=== PATIENT | female | born 1970 | race Caucasian/White ===

== ENCOUNTER 2016-07-15 10:40 | Observation (INO) ==
[2016-07-15] MEDS ORDERED: MORPHINE 2 MG/1 ML SYRINGE IV STA (12:21)
[2016-07-15] MEDS ORDERED: NITROGLYCERIN SL 0.4 MG TABLET SL PRN (12:21)
[2016-07-15] MEDS ORDERED: NITROGLYCERIN 2% OINT 1 INCH/GM PACK TOP STA ×2 (12:21→16:43)
[2016-07-15] MEDS ORDERED: ENOXAPARIN 100 MG/ML SYRINGE SUBCUT STA (12:21)
[2016-07-15] MEDS ORDERED: ASPIRIN 325 MG TABLET PO STA (12:21)
[2016-07-15] MEDS ORDERED: ONDANSETRON 4 MG/2 ML VIAL IV STA (12:21)
--- NOTE | 2016-07-15 12:25 | EKG Report ---
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
[2016-07-15 12:40] LABS: Basophils % 0.9 % (0.0-0.8); Eosinophils # 0.2 10*3/uL (0.0-0.87); Eosinophils % 4.3 % (0.00-10.9); Hematocrit 39.9 VOL% (35.7-47.0); Hemoglobin 13.5 GM/DL (12.0-16.0); Immature Granulocytes % 0.2 %; Immature Granulocytes Absolute 0.01 #; Lymphocytes # 2.1 10*3/uL (1.4-4.0); Lymphocytes % 45.3 % (21.3-54.2); Mean Corpuscular HGB Conc 33.8 GM/DL (32-36); Mean Corpuscular Hemoglobin 28 PG (27-34); Mean Corpuscular Volume 83.3 FL (87-102); Mean Platelet Volume 9.7 FL (9.6-12.0); Monocytes # 0.2 10*3/uL (0.11-0.8); Monocytes % 5.2 % (1.7-12.7); Neutrophils # 2.1 10*3/uL (1.4-7.4); Neutrophils % 44.1 % (38.7-73.9); Platelet Count 267 10*3/uL (130-400); Red Blood Count 4.79 10*6/uL (3.8-5.5); Red Cell Distribution Width 12.3 % (9.3-17.3); White Blood Count 4.7 10*3/uL (4.5-13.71)
[2016-07-15] MEDS ORDERED: NITROGLYCERIN SL 0.4 MG TABLET SL ONE (12:45)
--- NOTE | 2016-07-15 12:47 | Emergency Department Note ---
Palmer Paulino Meredith, am scribing for, and in the presence of, Renny Barron MD 12: 23. Beatrice Paulino James D, MD, personally performed the services described in this documentation, ascribed by Kenyatta Chakraborty in my presence, and it is both accurate and complete . Arrival - Arrival Chief Complaint: Chest Pain Stated Complaint: chest pain ED Nursing Triage Note: Pt c/o Chest pain that radiates up into her left neck and jaw x 35 min with some SOB and nausea. Mode of Arrival: Ambulatory Limitations: No Limitations Source: Patient, Old Records Reviewed, RN Notes Reviewed Time Seen by Provider: 07/15/16 12:13 - History of Present Illness HPI Narrative: Pt is a 46 y/o white female reporting to the ED with c/o chest pressure that radiates into the left neck and jaw, onset at approximately 1100. She confirms some shortness of breath, nausea, and diaphoresis. Her chest pressure is exacerbated with exertion. 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 Pt has a history of HTN, anxiety, HLD, NIDDM, GERD, and DDD. She is a current everyday smoker. Onset (ago): hour(s) Quality: other (pressure) Allergies/Adverse Reactions: Allergies Allergy/AdvReac Type Severity Reaction Status Date / Time No Known Allergies Allergy Verified 04/24/15 14:41 Home Medications: Home Medications Medication Instructions Recorded Confirmed Type Aspirin [Ecotrin] 325 mg PO DAILY 12/26/14 07/15/16 History Rosuvastatin [Crestor] 20 mg PO BEDTIME 12/26/14 07/15/16 History metFORMIN [Glucophage] 1,000 mg PO BID W/MEALS 12/26/14 07/15/16 History Lisinopril/Hydrochlorothiazide 1 each PO DAILY 07/15/16 07/15/16 History [Lisinopril-Hctz 20-25 mg Tab] Review of System - Review of System 12 point system: reviewed and no additional remarkable complaints except as stated - Review of System Constitutional: Present: as per HPI, diaphoresis Respiratory: Present: as per HPI, other (SOB) Cardiovascular: Present: as per HPI, chest pain Gastrointestinal: Present: as per HPI, nausea Musculoskeletal: Present: as per HPI, neck pain (left-sided), other (left-sided jaw pain ) Medical,Surgical,& Family Hx - Medical History Cardio: History of: Hypertension Psychological: History of: Anxiety Disorders Endocrine: History of: Diabetes Mellitus (NIDDM), Dyslipidemia Gastrointestinal: History of: GERD Musculoskeletal: History of: Degenerative Disk Disease - Surgical History Cardiac Surgeries: Sugical HX of: Cardiac Catheterization (x4) HEENT Surgeries: Surgical HX of: Tonsilectomy & Adenoidectomy Abdominal Surgeries: Surgical HX of: Appendectomy, Cholecystectomy Reproductive Surgeries: Surgical HX of;: Hysterectomy - Social History Smoking Status: Current every day smoker Exam Physical Examination: GENERAL: This is a well-nourished, well-developed white female in no apparent distress. VITAL SIGNS: Temperature: 97.8, Pulse: 69, Respirations: 20, Blood pressure: 145 /94, O2 Saturation: 99 HEENT: Head is normocephalic and atraumatic. Pupils are equally round and reactive to light. Extraocular movement are intact. Oropharynx is benign with moist mucous membranes. NECK: Neck is soft and supple without tenderness. There are no masses. There is no lymphadenopathy. LUNGS: Lungs are clear to auscultation bilaterally. Chest rises symmetrically. There is no chest wall tenderness. CV: Heart is regular rate and rhythm without murmurs, rubs, or gallops. ABDOMEN: Abdomen is soft, non-tender to palpation. There are no abnormal masses palpated. There is no organomegaly. Bowel sounds are present and active. SKIN: Skin is warm and dry. No rash. EXTREMITIES: Patient has full range of motion without tenderness. There is no pedal edema. NEUROLOGIC: Awake, alert, and oriented x4. Cranial nerves II through XII are grossly intact. There are no motorsensory deficits. PSYCHIATRIC: Normal affect. Normal mood. Vital Signs: Vital Signs Temperature 97.4 F L 07/15/16 12:30 Pulse Rate 62 07/15/16 14:30 Respiratory Rate 20 07/15/16 14:30 Blood Pressure 123/83 07/15/16 14:30 O2 Sat by Pulse Oximetry 99 07/15/16 14:30 Course - Consultations Consultation #1: Discussed with Dr. Lr. Patient will be admitted to his service. Initial orders written for him. Time: 15:51 Results - Labs CBC & BMP: 07/15/16 12:30 07/15/16 12:30 Lab Results: I have reviewed the patients labs Labs: Laboratory Tests 07/15/16 07/15/16 12:30 12:30 INR 1.0 Troponin I < 0.015 - EKG EKG results: interpreted by ERMD - Impressions EKG: Normal sinus rhythm with a rate of 66, low voltage QRS, nonspecific ST-T wave changes. - Diagnostic Findings Procedure: Chest x-ray: image reviewed by me (No pleural effusions, no cardiomegaly, no infiltrates.) Disposition Clinical Impression: Chest pain, Unstable angina, Coronary artery disease Case discussed with: patient Condition: Stable Time of Disposition: 15:47
--- NOTE | 2016-07-15 12:48 | XRay Report ---
XR chest 2V Indication: Chest pain. Chest 2 views: Comparison 02/26/16. Superior retraction left hilum again noted. No discrete infiltrates are shown. Pleural spaces are clear. Heart size is normal. Impression: No acute cardio pulmonary disease. PROCEDURE INTERPRETED AT [facility] DEPARTMENT OF RADIOLOGY Final Report Signed by: Messi Valenzuela M.D.
[2016-07-15 12:52] LABS: PT Patient Result 10.2 SECS; Partial Thromboplastin Time 25.4 SECS (0-40)
[2016-07-15] MEDS ORDERED: ONDANSETRON 4 MG/2 ML VIAL ONE (13:06)
[2016-07-15] MEDS ORDERED: ENOXAPARIN 80 MG/0.8 ML SYRINGE SUBCUT ONE (13:06)
[2016-07-15] MEDS ORDERED: ASPIRIN 325 MG TABLET ONE (13:07)
[2016-07-15] MEDS ORDERED: MORPHINE 2 MG/1 ML SYRINGE ONE (13:07)
[2016-07-15 13:18] LABS: Albumin 3.9 G/DL (3.4-5.0); Bilirubin,Total 0.7 MG/DL (0.2-1.0); Calcium 9.1 MG/DL (8.5-10.1); Osmolality,Calculated 285.3 MOS/KG (273-304)
[2016-07-15] MEDS ORDERED: diphenhydrAMINE CAP 25 MG CAPSULE PO ONE (16:44)
[2016-07-15] MEDS ORDERED: MAGNESIUM SULF RIDER 2 GM in PREMIX 1 EACH IV PRN ×2 (16:44→18:25)
[2016-07-15] MEDS ORDERED: POTASSIUM CHLORIDE RIDER 10 MEQ in PREMIX 1 EACH IV PRN (16:44)
[2016-07-15] MEDS ORDERED: DIAZEPAM 5 MG TABLET PO ONE (16:44)
--- NOTE | 2016-07-15 16:48 | Cardiology History & Physical ---
<Bryanna Scruggs E - Last Filed: 07/15/16 16:49> Assessment and Plan - Time spent with patient Time spent with patient: Greater than 30 minutes (1) Family history of premature CAD Status: Chronic Current Visit: Yes (2) Diabetes Status: Chronic Assessment and plan: Poorly controlled diabetes. At this point, we will hold her metformin in anticipation of cardiac catheterization. Will cover with sliding scale insulin. Current Visit: Yes (3) Sleep disorder Status: Chronic Assessment and plan: Consults sleep medicine for possible sleep apnea. Current Visit: Yes (4) Chest pain Status: Acute Assessment and plan: History of coronary artery disease. Chest pain concerning for angina. Will discuss with mold stripper in await final recommendations. Will keep nothing by mouth after midnight for possible heart catheterization in the morning. History of GE reflux. We'll add PPI. Current Visit: Yes (5) Coronary artery disease Status: Chronic Assessment and plan: Known coronary artery disease. See HPI for additional information. Current Visit: Yes (6) Dyslipidemia Status: Chronic Assessment and plan: Continue lipid-lowering agent. Fasting lipid profile in the morning. Current Visit: No (7) Essential hypertension Status: Chronic Assessment and plan: Continue lisinopril. Heart rate will not allow for introduction of a beta federica. Current Visit: No (8) Nicotine addiction Status: Chronic Assessment and plan: Greater than 5 minutes was spent today discussing the merits of tobacco cessation. Current Visit: No History of Present Illness Chief complaint: chest pain, SOB and diaphoresis, known CAD History of present illness: Patient is being seen in the emergency department. Ms. Pierre is a 46 year old female followed by Dr. Gilmore. Risk factors include : Known coronary artery disease, hypertension, dyslipidemia, poorly controlled diabetes, tobaccoism, sedentary lifestyle and family history of known premature coronary artery disease. Last ischemic workup was March 2015 involving nuclear stress test which revealed no evidence of reversible ischemia. Last cardiac catheterization occurred 03/26/2014. At that time her ejection fraction was noted be 55%. LAD had a smooth 40% stenosis after the first transcriptionist. The diagonal branch was patent. The circumflex was tortuous and patent. The right coronary artery was widely patent. FFR of the LAD lesion was 0.91. 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 She was doing her morning activities, she began to feel a pressure in the center of her chest described as "an elephant sitting on my chest". The discomfort radiated to her neck and left jaw. She became diaphoretic and nauseated. This lasted approximately 30 minutes and was relieved with nitroglycerin she received in the emergency department at [facility]. She rates the discomfort as a 7 on a scale of 1-10. Activities aggravate the discomfort and nitroglycerin and rest relieved the discomfort. She states that she has become more fatigued and short of breath over the past several weeks. She states that the discomfort she has been feeling is similar to the discomfort she had when she required stenting. He is currently chest pain-free. Her cardiac biomarkers are negative. Her EKG does not reveal an acute ischemic change. Patient continues to smoke one half pack of cigarettes per day. She tells me that her sugars are difficult to control in average 400 routinely. She takes metformin 2000 orally twice a day. Dr. Perera is her primary care provider. She has a history of Pineda fundoplication in 1994. She did take Protonix routinely but has not taken in over one year. Patient acknowledges she snores heavily and has been told that she holds her breath while she sleeps. She goes to sleep quickly within 1-2 minutes of sitting to rest. She is chronically fatigued and often wakes with a morning headache. Mlalampati Airway Class III. Will consult sleep medicine for evaluation of possible sleep apnea. Home Medications Medication Instructions Recorded Confirmed Type Aspirin [Ecotrin] 325 mg PO DAILY 12/26/14 07/15/16 History Rosuvastatin [Crestor] 20 mg PO BEDTIME 12/26/14 07/15/16 History metFORMIN [Glucophage] 1,000 mg PO BID W/MEALS 12/26/14 07/15/16 History Lisinopril/Hydrochlorothiazide 1 each PO DAILY 07/15/16 07/15/16 History [Lisinopril-Hctz 20-25 mg Tab] Allergies Allergy/AdvReac Type Severity Reaction Status Date / Time No Known Allergies Allergy Verified 04/24/15 14:41 Review of systems: REVIEW OF SYSTEMS: - Constitutional Constitutional: Present: Fatigue. Absent: syncope, anorexia, night sweats - EENT Eyes: Absent: blurry vision, loss of vision, diplopia Ears: Absent: decreased hearing, ear pain, ear discharge - Cardiovascular Cardiovascular: Present: chest pain with exertion, dyspnea on exertion. Denies edema, palpitations. Absent: chest pain with deep breath, claudication - Respiratory Respiratory: Present: LOPEZ. Absent: wheezing, hemoptysis, change in phlegm color - Gastrointestinal Gastrointestinal: Has had nausea witht the chest discomfort. Denies constipation. Absent: abdominal pain, hematemesis, hematochezia, melena, change in bowel habits - Genitourinary Genitourinary: Absent: difficulty urinating, dysuria, urinary hesitancy, flank pain - Musculoskeletal Musculoskeletal: Present: back pain Absent: joint swelling, muscle cramps, muscle weakness - Neurological Neurological: Present: normal gait without frequent falls. Absent: dizziness, hemiparesis - Psychiatric Psychiatric: Absent: anxiety, depression, difficulty concentrating - Endocrine Endocrine: Present: fatigue. Absent: cold intolerance, heat intolerance, polyuria, polyphagia, polydipsia - Hematologic/Lymphatic Hematologic/Lymphatic: Present: easy bruising. Absent: easy bleeding, -Integumentary Integumentary: Absent: lesions, rashes, skin breakdown Medical,Surgical,& Family Hx - Medical History Cardio: History of: CAD, Hypertension No history of: Cardiac Dysrhythmia, Cerebrovascular Disease Psychological: History of: Anxiety Disorders Endocrine: History of: Diabetes Mellitus (NIDDM), Dyslipidemia Gastrointestinal: History of: GERD Musculoskeletal: History of: Degenerative Disk Disease - Surgical History Cardiac Surgeries: Sugical HX of: Cardiac Catheterization (x4) HEENT Surgeries: Surgical HX of: Tonsilectomy & Adenoidectomy Abdominal Surgeries: Surgical HX of: Appendectomy, Cholecystectomy Reproductive Surgeries: Surgical HX of;: Hysterectomy - Social History Smoking Status: Current every day smoker Have you smoked in the last 12 months: Yes Time spent discussing smoking cessation with patient: 3 to 10 minutes Frequency of Alcohol Use: None Type of Drug Use: None Functional capacity: independent ambulation Cardiology Physical Exam - Constitutional Vitals: Vital Signs Temp Pulse Resp BP Pulse Ox 97.4 F L 63 17 117/83 95 07/15/16 12:30 07/15/16 16:00 07/15/16 16:00 07/15/16 16:00 07/15/16 16:00 Intake and Output 07/15/16 07/15/16 07/15/16 07:59 15:59 23:59 Other: Weight 72.575 kg Patient Weight 07/15/16 23:59 Weight 72.575 kg Exam: General: Appears well with no apparent distress. Pleasant and cooperative. Appears comfortable. HEENT: PERRL, normocephalic, atraumatic. Mucous membranes moist. No jaundice noted. Conjunctiva moist and clear, sclerae anicteric Neck: No JVD/HJR, no thyromegaly or lymphadenopathy noted. No carotid bruit appreciated Cardiac: Regular rate and rhythm. No murmur rub or gallop. Lungs: Clear to auscultation without accessory muscle use to assist the respiratory pattern. Using oxygen intermittently Abdomen: Soft, bowel sounds normoactive. Nontender and nondistended. No abdominal bruit or thrill noted. No masses noted. Musculoskeletal: No fluid collection. Decreased range of motion is noted. Extremities: No clubbing, cyanosis noted. No edema noted. Upper extremity pulses 2+. Lower extremity pulses 2+. Capillary refill less than 3 seconds. Skin: No unusual lesions or rashes. No skin breakdown appreciated. Neuro: Awake, alert and oriented 3. Moves all extremities well without hemiparesis or paralysis. No essential tremor is appreciated. Result/EKG - Labs CBC & BMP: 07/15/16 12:30 07/15/16 12:30 Lab Results: I have reviewed the past 24 hour labs Labs: Laboratory Results - last 24 hr 07/15/16 07/15/16 07/15/16 12:30 12:30 12:30 WBC 4.7 RBC 4.79 Hgb 13.5 Hct 39.9 MCV 83.3 L MCH 28 MCHC 33.8 RDW 12.3 Plt Count 267 MPV 9.7 Neut % (Auto) 44.1 Lymph % (Auto) 45.3 Villalba % (Auto) 5.2 Eos % (Auto) 4.3 Baso % (Auto) 0.9 H Neut # (Auto) 2.1 Lymph # (Auto) 2.1 Villalba # (Auto) 0.2 Eos # (Auto) 0.2 Baso # (Auto) 0.0 Immature Gran % 0.2 Nucleated RBC % 0.0 Immature Gran # 0.01 Nucleated RBCs # 0.00 INR PT Patient/Control Mix Circ Anticoag PTT Sodium 141 Potassium 4.0 Chloride 105 Carbon Dioxide 27 Anion Gap 13.0 BUN 7 Creatinine 0.90 GFR Calculation 80 BUN/Creatinine Ratio 7.00 Glucose 225 H Calculated Osmolality 285.3 Calcium 9.1 Total Bilirubin 0.70 AST 10 ALT 21 Alkaline Phosphatase 120 H Troponin I < 0.015 Total Protein 7.0 Albumin 3.9 Globulin 3.1 Albumin/Globulin Ratio 1.2 Lipase 07/15/16 07/15/16 12:30 12:30 WBC RBC Hgb Hct MCV MCH MCHC RDW Plt Count MPV Neut % (Auto) Lymph % (Auto) Villalba % (Auto) Eos % (Auto) Baso % (Auto) Neut # (Auto) Lymph # (Auto) Villalba # (Auto) Eos # (Auto) Baso # (Auto) Immature Gran % Nucleated RBC % Immature Gran # Nucleated RBCs # INR 1.0 PT Patient/Control Mix 10.2 Circ Anticoag PTT 25.4 Sodium Potassium Chloride Carbon Dioxide Anion Gap BUN Creatinine GFR Calculation BUN/Creatinine Ratio Glucose Calculated Osmolality Calcium Total Bilirubin AST ALT Alkaline Phosphatase Troponin I Total Protein Albumin Globulin Albumin/Globulin Ratio Lipase 388.0 - Diagnostic Findings Procedure: Chest x-ray: report reviewed by il - EKG EKG results: interpreted by il EKG shows: sinus rhythm <David Mantilla - Last Filed: 07/16/16 06:59> History of Present Illness History of present illness: Ms. Pierre is a 46 year old female Cardiology Physical Exam - Constitutional Vitals: Vital Signs Temp Pulse Resp BP Pulse Ox 96.6 F L 64 18 109/73 96 07/16/16 04:00 07/16/16 04:00 07/16/16 04:00 07/16/16 04:00 07/16/16 04:00 Intake and Output 07/15/16 07/15/16 07/16/16 15:59 23:59 07:59 Intake Total 240 / 240 1000 / 1000 Balance 240 / 240 1000 / 1000 Intake: IV 1000 / 1000 Ns 1,000 ml @ 125 mls/hr 1000 / 1000 IV .Q8H CECILIA Rx#: [id number] Oral 240 / 240 Other: # Voids 1 Weight 73.663 kg Result/EKG - Labs CBC & BMP: 07/15/16 12:30 07/15/16 12:30 Labs: Laboratory Results - last 24 hr 07/15/16 07/15/16 18:41 19:00 POC Glucose 127 H Troponin I < 0.015
[2016-07-15] MEDS ORDERED: DEXTROSE 50% 25 GM/50 ML VIAL IV PRN ×2 (17:09→18:25)
[2016-07-15] MEDS ORDERED: GLUCAGON 1 MG VIAL IM PRN ×2 (17:09→18:25)
[2016-07-15] MEDS ORDERED: NITROGLYCERIN 2% OINT 1 INCH/GM PACK TOP ONE (18:10)
[2016-07-15] MEDS ORDERED: MAGNESIUM SULF RIDER 4 GM in PREMIX 1 EACH IV PRN (18:25)
[2016-07-15] MEDS: PANTOPRAZOLE 40 MG TABLET PO SCH (18:57)
[2016-07-15] MEDS: INSULIN LISPRO 100 UNIT/ML SUBCUT SCH ×2 (19:02→20:52)
[2016-07-15] MEDS: NITROGLYCERIN 2% OINT 1 INCH/GM PACK TOP SCH (19:02)
[2016-07-15] MEDS: SODIUM CHLORIDE 0.9% 1,000 ML IV SCH (19:04)
[2016-07-15] MEDS: ROSUVASTATIN 20 MG TABLET PO SCH (20:51)
[2016-07-15] MEDS: INSULIN REGULAR 100 UNIT/ML SUBCUT SCH (20:52)
[2016-07-16] MEDS: NITROGLYCERIN 2% OINT 1 INCH/GM PACK TOP SCH ×4 (00:05→17:45)
[2016-07-16] MEDS ORDERED: ENOXAPARIN 80 MG/0.8 ML SYRINGE SUBCUT SCH (02:00)
[2016-07-16] MEDS: SODIUM CHLORIDE 0.9% 1,000 ML IV SCH ×4 (03:00→21:54)
[2016-07-16] MEDS ORDERED: POTASSIUM CHLORIDE RIDER 10 MEQ in PREMIX 1 EACH IV PRN (06:54)
[2016-07-16] MEDS ORDERED: MAGNESIUM SULF RIDER 2 GM in PREMIX 1 EACH IV PRN (06:54)
--- NOTE | 2016-07-16 07:03 | Cardiology Progress Note ---
Assessment and Plan (1) Unstable angina Status: Acute Assessment and plan: 1. 46-year-old overweight WF with known moderate CAD (40% LAD lesion 2013), probably poorly controlled NIDDM, treated dyslipidemia, presents with symptoms suggestive of unstable angina; she's had transient chest discomfort with exertion in the last couple weeks, and presented after a minute of severe chest pain with shortness of breath which did not resolve until she received nitroglycerin after at least 30 minutes of discomfort 2. Ms. Pierre is ruled out for [place] and has no acute EKG changes 3. Given her worrisome symptoms, recommended heart catheterization to define her coronary anatomy; given her body habitus, right radial will be attempted first 4. Sleep medicines been consulted 5. Ms. Pierre received Lovenox and aspirin therapy I discussed with Ms. Pierre the risks and benefits of catheterization and intervention including but not limited to: : , stroke, heart attack, vascular damage, reaction to medicine or dye, bleeding requiring blood transfusion, failure the procedure, possible need for planned or emergency heart surgery. I have answered all the patient's questions and the patient is agreeable to proceed. Current Visit: Yes (2) Diabetes mellitus type 2 in obese Status: Acute Current Visit: No (3) Dyslipidemia Status: Chronic Current Visit: No (4) Nicotine addiction Status: Chronic Current Visit: No Cardiology - PN: Subj Interval history: Mrs. Pierre is had no further chest discomfort since her pain was relieved in the emergency room. She is completely asymptomatic Mrs. Wild shortness of breath or dizziness. Exam (Progress Note) - Constitutional Vitals: Period Temp Pulse Resp BP Sys/Dor[place] Pulse Ox Last 24 Hr 96.6 F-98.2 F 57-69 13-21 105-146/67-86 94-97 General appearance: no acute distress, over weight - Neck Neck exam: Present: normal inspection - Respiratory Respiratory exam: Present: clear to auscultation bilaterally. Absent: wheezes - Cardiovascular Cardiovascular exam: Present: regular rate and rhythm. Absent: diastolic murmur , rubs, systolic murmur - GI/Abdominal GI/Abdominal exam: Present: soft. Absent: tenderness - Extremities Exam Extremities exam: Absent: edema Result/EKG - Labs CBC & BMP: 07/15/16 12:30 07/15/16 12:30 Labs: Laboratory Results - last 24 hr 07/15/16 07/15/16 18:41 19:00 POC Glucose 127 H Troponin I < 0.015
[2016-07-16 07:49] LABS: Basophils % 0.8 % (0.0-0.8); Eosinophils # 0.3 10*3/uL (0.0-0.87); Eosinophils % 6.5 % (0.00-10.9); Hematocrit 38.4 VOL% (35.7-47.0); Hemoglobin 12.6 GM/DL (12.0-16.0); Immature Granulocytes % 0.2 %; Immature Granulocytes Absolute 0.01 #; Lymphocytes # 1.8 10*3/uL (1.4-4.0); Lymphocytes % 38.5 % (21.3-54.2); Mean Corpuscular HGB Conc 32.8 GM/DL (32-36); Mean Corpuscular Hemoglobin 28 PG (27-34); Mean Platelet Volume 9.7 FL (9.6-12.0); Monocytes # 0.3 10*3/uL (0.11-0.8); Monocytes % 5.7 % (1.7-12.7); Neutrophils # 2.3 10*3/uL (1.4-7.4); Neutrophils % 48.3 % (38.7-73.9); Platelet Count 238 10*3/uL (130-400); Red Blood Count 4.52 10*6/uL (3.8-5.5); Red Cell Distribution Width 12.5 % (9.3-17.3); White Blood Count 4.8 10*3/uL (4.5-13.71)
[2016-07-16] MEDS ORDERED: diphenhydrAMINE CAP 25 MG CAPSULE PO ONE (08:00)
[2016-07-16] MEDS ORDERED: DIAZEPAM 5 MG TABLET PO ONE (08:00)
[2016-07-16 08:03] LABS: PT Patient Result 10.7 SECS
[2016-07-16 08:14] LABS: Calcium 8.4 MG/DL (8.5-10.1); Magnesium 1.9 MG/DL (1.8-2.4); Potassium 4.4 MMOL/L (3.5-5.1)
[2016-07-16] MEDS: INSULIN REGULAR 100 UNIT/ML SUBCUT SCH ×4 (08:33→21:47)
[2016-07-16] MEDS: INSULIN LISPRO 100 UNIT/ML SUBCUT SCH (08:33)
[2016-07-16] MEDS: PANTOPRAZOLE 40 MG TABLET PO SCH (08:33)
[2016-07-16] MEDS ORDERED: PANTOPRAZOLE 40 MG TABLET PO SCH (09:00)
[2016-07-16] MEDS ORDERED: ASPIRIN EC 325 MG TABLET PO SCH (09:00)
[2016-07-16] MEDS ORDERED: LISINOPRIL/HCTZ 20-25 MG TABLET PO SCH (09:00)
[2016-07-16] MEDS ORDERED: MIDAZOLAM 2 MG/2 ML VIAL ONE (09:18)
[2016-07-16] MEDS ORDERED: LIDOCAINE 1% 20 ML VIAL ONE (09:18)
[2016-07-16] MEDS ORDERED: HYDROmorphone 2 MG/1 ML VIAL ONE (09:18)
[2016-07-16] MEDS ORDERED: NITROGLYCERIN DRIP 50 MG/250 ML BOTTLE IV ONE (09:29)
[2016-07-16] MEDS ORDERED: VERAPAMIL 5 MG/2 ML VIAL ONE (09:29)
[2016-07-16] MEDS ORDERED: TICAGRELOR 90 MG TABLET ONE (09:57)
[2016-07-16] MEDS ORDERED: NITROGLYCERIN SL 0.4 MG TABLET SL PRN (10:48)
--- NOTE | 2016-07-16 11:06 | Cardiac Catheterization ---
Date of Procedure:: 07/16/16 Post-op diagnosis: same Procedure: Procedure performed: 1. Left heart catheterization 2. Coronary angiography 3. Left ventriculography 4. Angioplasty and stenting of proximal LAD critical disease with drug-eluting stent (2.75 x 20 Synergy) Brief summary: Mrs. Pierre is a 46-year-old diabetic smoker with previous moderate disease of presented with symptoms suggestive of acute coronary syndrome. She is follow-up Dr. Gilmore. Description of procedure: After obtaining informed consent the patient transferred to the catheterization lab, and the right wrist was prepped and draped in the usual sterile fashion. Next a short 6 Vietnamese sheath was placed in the right radial artery using the Seldinger technique after the patient received IV sedation, and local anesthetic. I then injected a vasodilator cocktail into the sheath. We gave her 0.5 mg per kilogram of intravenous Lovenox prior to the procedure. Next a 5 Vietnamese TIG catheter was advancing his left coronary artery after which angiogram was performed in multiple views. This was then pulled back and manipulated the right coronary artery where angiographic were taken multiple views. Percutaneous coronary intervention was then performed as described below. Hemostasis was obtained with a TR band, using "patent hemostasis" technique. The patient was transferred from the catheterization lab in good condition. 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 She was loaded with Brilinta prior to procedure. A TIG 6 Vietnamese catheter was advanced and engaged to the left coronary artery which it fit well. A run through wire was advanced to the distal LAD diagonal with only modest difficulty. Next I advanced a 2.5 x 15 balloon, but could not cross the lesion due to insufficient guide support. I did perform balloon inflation, but it "watermelon seeded" proximally.. During attempts to recross it the guide came out and twisted.. I was able to cross the "kinked" area with a J-wire but it would not cross more than about 4 cm past the area of kinking. I was unable to straighten advise simple torquing of the catheter. I gradually pulled back and was able to "straighten" the area in the proximal brachial artery.. Was removed without difficulty after that point. Next an AL-1 guiding catheter was advanced and engaged the left coronary artery which fit the vessel reasonably well after multiple adjustments. It provided adequate support. The run through wire was advanced again to the distal LAD. The same 2.5 x 15 balloon was advanced across the lesion was dilated to above nominal pressures with reduction in the stenosis to 40-50%. The balloon was removed and a 2.75 x 20 Synergy drug-eluting stent was advanced across area of disease and was dilated to above nominal pressures, the distal stent was well sized being very slightly oversized. However the proximal segment was clearly undersized. Therefore the balloon was removed and a 3.25 x 15 balloon was advanced into the proximal portion of the stent was dilated eventually to rated burst pressure. There was less than 20% residual stenosis and the stent appeared a reasonable well sized approximate that point. The patient hard the procedure well without,complication. Coronary angiography: Left main coronary artery is normal developed free of disease. Left anterior sitting on is of average caliber tapers distally reaches the apex. There is a 99% reasonably discrete proximal LAD stenosis noted. There are couple of tiny diagonal branches. The circumflex gives off a tiny OM1 her own to branch, with a large tortuous on 3 branch. There only mild to moderate irregularities in the circumflex system. The right coronary artery dominant vessel with a 40% area of proximal stenosis. There is a long acute marginal lip provides part of the traditional PDA territory an average caliber PDA. Left ventriculography: The left ventricle is of normal size with normal LV systolic function. The estimated ejection fraction 60%. There are no segmental wall motion abnormalities. There is a most trivial mitral regurgitation. Impression: 1. Normal LV systolic function with ejection fraction estimated be 60% without segmental wall motion abnormality 2. Right dominant system 3. Coronary artery disease as described above including but not limited to: A. Critical, 99% proximal LAD stenosis as detailed above B. Only mild irregularities in the circumflex system C. 40% proximal RCA stenosis 4. Status post successful stenting of proximal LAD with Jevity stent (2.75 x 20 Synergy dilated to 3.6 mm proximally, with good result) Recommendation discussion: I believe we achieved very good result with regard to stenting Mr. Pierre is critical proximal LAD stenosis. This is almost certainly the cause of her symptoms. Her right coronary lesion is clearly not significant and will be treated medically. She will obviously need to stop all smoking, when he take her aspirin Brilinta without fail. We'll plan follow-up with Dr. gilmore in the next week or 2 and tentatively plan for discharge tomorrow if there are no problems. Anesthesia: minimal conscious sedation Surgeon / Physician: David Mantilla Warehouse Team Member: other Estimated blood loss: minimal Specimens: none sent Condition: stable Disposition: floor - Medications / Follow-up
--- NOTE | 2016-07-16 11:26 | EKG Report ---
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
[2016-07-16 12:47] LABS: Troponin I Only < 0.015 NG/ML (0.00-0.045)
[2016-07-16] MEDS: TICAGRELOR 90 MG TABLET PO SCH (21:47)
[2016-07-16] MEDS: ROSUVASTATIN 20 MG TABLET PO SCH (21:47)
[2016-07-17] MEDS: NITROGLYCERIN 2% OINT 1 INCH/GM PACK TOP SCH ×2 (01:05→06:40)
[2016-07-17] MEDS: SODIUM CHLORIDE 0.9% 1,000 ML IV SCH ×5 (03:57→09:28)
[2016-07-17 05:33] LABS: Basophils % 0.9 % (0.0-0.8); Eosinophils # 0.3 10*3/uL (0.0-0.87); Eosinophils % 6.8 % (0.00-10.9); Hematocrit 36.3 VOL% (35.7-47.0); Hemoglobin 12.1 GM/DL (12.0-16.0); Immature Granulocytes % 0.2 %; Immature Granulocytes Absolute 0.01 #; Lymphocytes # 1.9 10*3/uL (1.4-4.0); Mean Corpuscular HGB Conc 33.3 GM/DL (32-36); Mean Corpuscular Hemoglobin 28 PG (27-34); Mean Corpuscular Volume 83.3 FL (87-102); Monocytes # 0.4 10*3/uL (0.11-0.8); Monocytes % 7.9 % (1.7-12.7); Neutrophils # 2.1 10*3/uL (1.4-7.4); Neutrophils % 44.2 % (38.7-73.9); Platelet Count 249 10*3/uL (130-400); Red Blood Count 4.36 10*6/uL (3.8-5.5); Red Cell Distribution Width 12.3 % (9.3-17.3); White Blood Count 4.7 10*3/uL (4.5-13.71)
[2016-07-17 06:10] LABS: Blood Urea Nitrogen 11 MG/DL (7-18); Calcium 8.3 MG/DL (8.5-10.1); Glucose 129 MG/DL (74-106); Osmolality,Calculated 288.7 MOS/KG (273-304); Sodium 145 MMOL/L (136-145)
[2016-07-17 06:11] LABS: Troponin I Only 0.113 NG/ML (0.00-0.045)
--- NOTE | 2016-07-17 07:27 | EKG Report ---
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
[2016-07-17 07:43] VITALS: BP 97/59
[2016-07-17] MEDS: INSULIN REGULAR 100 UNIT/ML SUBCUT SCH (08:32)
[2016-07-17] MEDS ORDERED: ASPIRIN EC 81 MG TABLET PO SCH (09:00)
[2016-07-17] MEDS: TICAGRELOR 90 MG TABLET PO SCH (09:12)
[2016-07-17] MEDS: PANTOPRAZOLE 40 MG TABLET PO SCH (09:12)
--- NOTE | 2016-07-17 09:20 | Discharge Summary ---
Hospital Course - Hospital Course Hospital Course: Ms. Pierre is a 46 year old female followed by Dr. Gilmore. Risk factors include : Known coronary artery disease, hypertension, dyslipidemia, poorly controlled diabetes, tobaccoism, sedentary lifestyle and family history of known premature coronary artery disease. Last ischemic workup was March 2015 involving nuclear stress test which revealed no evidence of reversible ischemia. Last cardiac catheterization occurred 03/26/2014. At that time her ejection fraction was noted be 55%. LAD had a smooth 40% stenosis after the first manual winder. The diagonal branch was patent. The circumflex was tortuous and patent. The right coronary artery was widely patent. FFR of the LAD lesion was 0.91. 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 She became diaphoretic and nauseated. She felt as if she should be evaluated in the emergency department. He had biomarkers were negative and EKG unremarkable. The following morning, she was taken to the cardiac catheterization laboratory Dr. Mantilla performed elective heart catheterization with the following impression noted: Impression: 1. Normal LV systolic function with ejection fraction estimated be 60% without segmental wall motion abnormality 2. Right dominant system 3. Coronary artery disease as described above including but not limited to: A. Critical, 99% proximal LAD stenosis as detailed above B. Only mild irregularities in the circumflex system C. 40% proximal RCA stenosis 4. Status post successful stenting of proximal LAD with Jevity stent (2.75 x 20 Synergy dilated to 3.6 mm proximally, with good result) A good result was achieved stenting the critical proximal LAD stenosis. Her right coronary lesion was clearly not significant and will be treated medically. Tolerated the procedure well without complication was returned to our telemetry unit in stable condition. Her labs were stable the following morning. Right radial approach revealed no evidence of hematoma. 2+ radial pulse noted. Patient did have mild hypotension in the salt miner hours while sleeping. She was given a fluid challenge and her blood pressure stabilized. Anxious for release home, patient is being discharged home in stable condition. Patient was counseled regarding the merits of tobacco cessation and she is interested in stopping. Patient will be given a follow-up appointment with Dr. Gilomre approximately one week. Visit the following labs will be obtained: BMP, magnesium and CBC. EKG. It is believed that the patient does have significant sleep disorder. She is being set up for outpatient referral to sleep medicine. (See H&P for additional information). Discharge medications include: Aspirin 81 mg orally daily Brilinta 90 mg orally twice a day without fail. Crestor 20 mg orally each evening Pent-up resolved 40 mg orally daily. Patient's blood pressure will not tolerate jamarcus inhibitor or beta federica. - Time spent with patient Time with patient DS: Less than 30 minutes Diagnosis - Discharge Diagnosis (1) Family history of premature CAD Status: Chronic (2) Sleep disorder Status: Chronic (3) Chest pain Status: Resolved (4) Coronary artery disease Status: Chronic (5) Dyslipidemia Status: Chronic (6) Essential hypertension Status: Chronic (7) Nicotine addiction Status: Chronic Specialty Discharge - Follow Up or Referrals Follow up with: Anastasia Davis MD [Physician] - (1-2 weeks RE: sleep disorder) Matthew Gilmore MD [Physician] - (1-2 weeks. At visit, EKG, BMP, Mg, CBC) Discharge Plan - Discharge Data Disposition: Disch To Home/Self Care Condition at Discharge: Stable Discharge Diet: heart healthy Activity: other (post-cath expectations) Hygiene: other (post-cath expectations) Weight Bearing at Discharge: other (post-cath expectations) Driving: other Contact your physician if you experience:: fever over 101, Difficulty voiding, Redness or swelling, Nausea/Vomiting (post cath expectations), Shortness of breath, Bleeding, pain uncontrolled by pain medications - Discharge Medications New Aspirin EC Tab 81 mg PO DAILY 30 Days Nitroglycerin Sl Tab [Nitrostat] 0.4 mg SL Q5M PRN #1 bottle PRN Reason: Chest Pain Pantoprazole Tab [Protonix Tab] 40 mg PO DAILY #30 tablet Ticagrelor [Brilinta] 90 mg PO BID #60 tablet Continue metFORMIN [Glucophage] 1,000 mg PO BID W/MEALS Rosuvastatin [Crestor] 20 mg PO BEDTIME #30 tablet Discontinued Aspirin [Ecotrin] 325 mg PO DAILY Lisinopril/Hydrochlorothiazide [Lisinopril-Hctz 20-25 mg Tab] 1 each PO DAILY - Follow Up or Referral Follow Up: Anastasia Davis MD [Physician] - (1-2 weeks RE: sleep disorder) Matthew Gilmore MD [Physician] - (1-2 weeks. At visit, EKG, BMP, Mg, CBC) Juan Antonio Perera MD [Physician] - (2-3 weeks) - Forms/Instructions Instructions: Left Heart Catheterization (DC), Heart Healthy Diet (GEN), Coronary Intravascular Stent Placement (DC), Cigarette Smoking and Your Health, Head Boys Golf Coach (GEN) Additional Discharge Instructions: Please ask patient to resume Lisinopril/HCT when SBP > 120. Resume Metformin Wednesday morning. Exam - Constitutional Vitals: Period Temp Pulse Resp BP Sys/Dorado Pulse Ox Last 24 Hr 96.3 F-98.2 F 52-71 16-20 81-130/51-83 94-100 Exam: General: Appears well with no apparent distress. Pleasant and cooperative. Appears comfortable. HEENT: PERRL, normocephalic, atraumatic. Mucous membranes moist. No jaundice noted. Conjunctiva moist and clear, sclerae anicteric Neck: No JVD/HJR, no thyromegaly or lymphadenopathy noted. No carotid bruit appreciated Cardiac: Regular rate and rhythm. No murmur rub or gallop. Lungs: Clear to auscultation without accessory muscle use to assist the respiratory pattern. Not requiring oxygen. Abdomen: Soft, bowel sounds normoactive. Nontender and nondistended. No abdominal bruit or thrill noted. No masses noted. Musculoskeletal: No fluid collection. Decreased range of motion is noted. Extremities: Right radial pulse 2+. No evidence of hematoma. Capillary refill less than 3 seconds. No cyanosis noted. No edema noted. Lower extremity pulses 2+. Skin: No unusual lesions or rashes. No skin breakdown appreciated. Neuro: Awake, alert and oriented 3. Moves all extremities well without hemiparesis or paralysis. No essential tremor is appreciated. Discharge Results Labs on day of discharge: Labs from last 24 hours 07/17/16 07/17/16 07/17/16 07:22 04:13 04:13 WBC 4.7 RBC 4.36 Hgb 12.1 Hct 36.3 MCV 83.3 L MCH 28 MCHC 33.3 RDW 12.3 Plt Count 249 MPV 10.0 Neut % (Auto) 44.2 Lymph % (Auto) 40.0 [place] % (Auto) 7.9 Eos % (Auto) 6.8 Baso % (Auto) 0.9 H Neut # (Auto) 2.1 Lymph # (Auto) 1.9 [place] # (Auto) 0.4 Eos # (Auto) 0.3 Baso # (Auto) 0.0 Immature Gran % 0.2 Nucleated RBC % 0.0 Immature Gran # 0.01 Nucleated RBCs # 0.00 Sodium 145 Potassium 4.0 Chloride 110 H Carbon Dioxide 24 Anion Gap 15.0 BUN 11 Creatinine 0.80 GFR Calculation 93 BUN/Creatinine Ratio 13.00 Glucose 129 H POC Glucose 133 H Calculated Osmolality 288.7 Calcium 8.3 L Total Creatine Kinase 39 CK-MB (CK-2) < 1.0 Troponin I 0.113 H D 07/16/16 07/16/16 07/16/16 18:54 15:05 11:59 WBC RBC Hgb Hct MCV MCH MCHC RDW Plt Count MPV Neut % (Auto) Lymph % (Auto) [place] % (Auto) Eos % (Auto) Baso % (Auto) Neut # (Auto) Lymph # (Auto) [place] # (Auto) Eos # (Auto) Baso # (Auto) Immature Gran % Nucleated RBC % Immature Gran # Nucleated RBCs # Sodium Potassium Chloride Carbon Dioxide Anion Gap BUN Creatinine GFR Calculation BUN/Creatinine Ratio Glucose POC Glucose 252 H 223 H Calculated Osmolality Calcium Total Creatine Kinase 45 CK-MB (CK-2) < 1.0 Troponin I < 0.015 07/16/16 11:30 WBC RBC Hgb Hct MCV MCH MCHC RDW Plt Count MPV Neut % (Auto) Lymph % (Auto) [place] % (Auto) Eos % (Auto) Baso % (Auto) Neut # (Auto) Lymph # (Auto) [place] # (Auto) Eos # (Auto) Baso # (Auto) Immature Gran % Nucleated RBC % Immature Gran # Nucleated RBCs # Sodium Potassium Chloride Carbon Dioxide Anion Gap BUN Creatinine GFR Calculation BUN/Creatinine Ratio Glucose POC Glucose 194 H Calculated Osmolality Calcium Total Creatine Kinase CK-MB (CK-2) Troponin I - Imaging and Cardiology Cardiology Procedure: report reviewed by Procedure: Chest x-ray: report reviewed by DS: Provider Date of admission: 07/15/16 15:51 Primary care physician: . No PCP Attending physician on admission: David Maldonado Consults: 07/15/16 18:30 Consult to Pharmacy [CONS] Routine Reason for Pharmacy Consult: Adjust Meds Renal Funct 07/16/16 10:48 Consult to Cardiac Rehabilitation [CONS] Routine Reason for Cardiac Rehabilitation: Smoking Cessation In Home Aide Appt Out Pt Cardiac Rehab Discharging clinician: Bryanna Scruggs NP Expected date of discharge: 07/17/16
[2016-07-17 09:45] LABS: Risk Ratio 5.21; VLDL CHOLESTEROL 72.4 MG/DL
== END 2016-07-17 11:02 | disposition home or self-care (01) ==
LOC: N.ED 10:40 → N.EDINP 15:51 → INTOOBSV 15:51 → N.TELES 18:06
PROVIDERS: ADMIT Internal Medicine Cardiovascular Disease; ATTEND Internal Medicine Cardiovascular Disease
PROC: CLCCHCL (ICD-10-PCS; 2016-07-16 09:45)

== ENCOUNTER 2016-10-20 09:29 | Observation (INO) ==
[2016-10-20] MEDS ORDERED: ONDANSETRON 4 MG/2 ML VIAL IV STA (09:50)
[2016-10-20] MEDS ORDERED: MORPHINE 2 MG/1 ML SYRINGE IV STA (09:50)
[2016-10-20] MEDS ORDERED: ASPIRIN 325 MG TABLET PO STA (09:50)
[2016-10-20] MEDS ORDERED: ENOXAPARIN 100 MG/ML SYRINGE SUBCUT STA (09:50)
[2016-10-20] MEDS ORDERED: NITROGLYCERIN 2% OINT 1 INCH/GM PACK TOP STA (09:50)
--- NOTE | 2016-10-20 09:54 | EKG Report ---
Stationary ECG Study [facility] ER Test Date: 10/20/2016 9:37:05 AM Pat Name: ETHAN SINGLETON Department: Room: Gender: F Distresser: : 1970 Requested by: Renny Bustos Order Number: [id number] Reading MD: EMILIANO RAGLAND Intervals [place] Rate: 70 P: 68 MA: 162 QRS: 79 QRSD: 83 T: 64 QT: 395 QTc: 417 Interpretive Statements SINUS RHYTHM Electronically Signed On 10-22-16 11:30:27 CDT by EMILIANO RAGLAND [email or web address]
--- NOTE | 2016-10-20 09:57 | Emergency Department Note ---
Edmundo Paulino Gwan, am scribing for, and in the presence of, Renny Barron MD 09:51 . Beatrice Paulino James D, MD, personally performed the services described in this documentation, ascribed by Chepe Wyatt in my presence, and it is both accurate and complete 955 . Arrival - Arrival Chief Complaint: Chest Pain Stated Complaint: chest pain ED Nursing Triage Note: pt was here last night for cp and states it easied off. pt was dx with esophageal spasms adn costochondritis. pt states that a pressure pain in her chest started again about 0800. pain goes in neck and jaw. +nausea Mode of Arrival: Ambulatory Limitations: No Limitations Source: Patient, Old Records Reviewed, RN Notes Reviewed - History of Present Illness HPI Narrative: Pt is a 46 y/o female, with a hx of esophageal spasms and costochondritis, who presents to the ED with a c/o chest pain and diaphoresis with an onset 0800 this morning. Patient was last seen in ED 10/19/2016 with a c/o left shoulder pain, left neck pain and SOB. Patient continued to note that her chest pain can be described as pressure with an onset 0800 this morning. Her associated sxs have been nausea and she said that her pain radiates to her neck and jaw. Patient stated that she had 99% blockage of her heart in June and that this pain is consistent with that previous pain. She then noted that her pain originally started three days ago and that it has been intermittent. She denies melena or dysuria. Pt has a PMHx of HTN, CAD, anxiety disorder, NIDDM, dyslipidemia and cardiac catheterization. No other problems/complaints reported in ED. Onset (ago): day(s) Consistency: constant Severity: moderate Date of Last Menstrual Period: hyst Allergies/Adverse Reactions: Allergies Allergy/AdvReac Type Severity Reaction Status Date / Time No Known Allergies Allergy Verified 04/24/15 14:41 Home Medications: Home Medications Medication Instructions Recorded Confirmed Type metFORMIN [Glucophage] 1,000 mg PO BID W/MEALS 12/26/14 10/20/16 History Nitroglycerin Sl Tab [Nitrostat] 0.4 mg SL Q5M PRN #1 bottle 07/17/16 10/20/16 Rx Rosuvastatin [Crestor] 20 mg PO BEDTIME #30 tablet 07/17/16 10/20/16 Rx Aspirin [Ecotrin] 81 mg PO DAILY 10/19/16 10/20/16 History Clopidogrel [Plavix] 75 mg PO DAILY 10/19/16 10/20/16 History Lisinopril/Hctz 20-12.5 [Prinzide 1 tablet PO DAILY 10/19/16 10/20/16 History 20-12.5] Metoclopramide Tab [Reglan Tab] 5 mg PO ACHS #40 tablet 10/19/16 10/20/16 Rx Pantoprazole Tab [Protonix Tab] 40 mg PO DAILY #30 tablet 10/19/16 10/20/16 Rx Tizanidine HCl [Zanaflex] 2 mg PO Q6H #40 capsule 10/19/16 10/20/16 Rx Review of System - Review of System 12 point system: reviewed and no additional remarkable complaints except as stated - Review of System Constitutional: Absent: chills, fever Eyes: Absent: discharge Head/Ears/Nose/Throat: Absent: earache Cardiovascular: Present: as per HPI, chest pain Gastrointestinal: Present: as per HPI, nausea Genitourinary female: Absent: dysuria Musculoskeletal: Present: as per HPI, other (neck pain; jaw pain). Absent: arm pain, back pain, leg pain Skin: Absent: rash, lesions Neurological: Absent: headache, weakness Psychiatric: Absent: as per HPI Medical,Surgical,& Family Hx - Medical History Cardio: History of: CAD, Hypertension No history of: Cardiac Dysrhythmia, Cerebrovascular Disease Psychological: History of: Anxiety Disorders Endocrine: History of: Diabetes Mellitus (NIDDM), Dyslipidemia Gastrointestinal: History of: GERD Musculoskeletal: History of: Degenerative Disk Disease - Surgical History Cardiac Surgeries: Sugical HX of: Cardiac Catheterization (x4) HEENT Surgeries: Surgical HX of: Tonsilectomy & Adenoidectomy Abdominal Surgeries: Surgical HX of: Appendectomy, Cholecystectomy Reproductive Surgeries: Surgical HX of;: Hysterectomy - Social History Smoking Status: Smoker, status unknown Frequency of Alcohol Use: None Type of Drug Use: None Exam Physical Examination: GENERAL: This is a white female in no apparent distress. VITAL SIGNS: HEENT: Head is normocephalic and atraumatic. Pupils are equally round and reactive to light. Extraocular movement are intact. Oropharynx is benign with moist mucous membranes. NECK: Neck is soft and supple without tenderness. There are no masses. There is no lymphadenopathy. LUNGS: Lungs are clear to auscultation bilaterally. Chest rises symmetrically. There is no chest wall tenderness. CV: Heart is regular rate and rhythm without murmurs, rubs, or gallops. ABDOMEN: Abdomen is soft, non-tender to palpation. There are no abnormal masses palpated. There is no organomegaly. Bowel sounds are present and active. SKIN: Skin is warm and dry. No rash. EXTREMITIES: Patient has full range of motion without tenderness. There is no pedal edema. NEUROLOGIC: Awake, alert, and oriented x4. Cranial nerves II through XII are grossly intact. There are no motorsensory deficits. PSYCHIATRIC: Normal affect. Normal mood. Vital Signs: Vital Signs Temperature 97.6 F 10/20/16 09:45 Pulse Rate 61 10/20/16 10:15 Respiratory Rate 20 10/20/16 10:15 Blood Pressure 127/85 10/20/16 10:15 O2 Sat by Pulse Oximetry 100 10/20/16 10:15 Course - Consultations Consultation #1: Discussed with cardiology. They will see the patient in the emergency department. Time: 10:04 Results - Labs CBC & BMP: 10/20/16 09:52 10/20/16 09:52 Lab Results: I have reviewed the patients labs Labs: Laboratory Tests 10/20/16 10/20/16 10/20/16 09:52 09:52 09:52 WBC 4.5 RBC 4.59 Hgb 12.9 Hct 38.9 MCV 84.7 L Plt Count 278 Baso % (Auto) 0.9 H INR 1.0 PT Patient/Control Mix 10.3 Circ Anticoag PTT 26.3 Sodium 134 L Potassium 3.9 Chloride 101 Carbon Dioxide 26 BUN 8 Creatinine 1.00 Glucose 324 H - EKG EKG results: interpreted by ERMD - Impressions EKG: Normal sinus rhythm with rate of 70, nonspecific ST-T wave changes, normal axis. - Diagnostic Findings Procedure: Chest x-ray: image reviewed by me, report reviewed by me (No acute cardiopulmonary pathology identified. ) Disposition Clinical Impression: Chest pain, Coronary artery disease, Diabetes mellitus, Essential hypertension Time of Disposition: 10:03
[2016-10-20] MEDS ORDERED: NITROGLYCERIN 2% OINT 1 INCH/GM PACK TOP ONE (10:05)
[2016-10-20] MEDS ORDERED: ONDANSETRON 4 MG/2 ML VIAL ONE (10:05)
[2016-10-20] MEDS ORDERED: MORPHINE 2 MG/1 ML SYRINGE ONE (10:05)
[2016-10-20] MEDS ORDERED: ENOXAPARIN 80 MG/0.8 ML SYRINGE SUBCUT ONE (10:05)
[2016-10-20] MEDS ORDERED: ASPIRIN 325 MG TABLET ONE (10:06)
[2016-10-20 10:14] LABS: Basophils % 0.9 % (0.0-0.8); Eosinophils # 0.2 10*3/uL (0.0-0.87); Eosinophils % 4.7 % (0.00-10.9); Hematocrit 38.9 VOL% (35.7-47.0); Hemoglobin 12.9 GM/DL (12.0-16.0); Immature Granulocytes % 0.2 %; Immature Granulocytes Absolute 0.01 #; Lymphocytes # 1.7 10*3/uL (1.4-4.0); Lymphocytes % 37.6 % (21.3-54.2); Mean Corpuscular HGB Conc 33.2 GM/DL (32-36); Mean Corpuscular Hemoglobin 28 PG (27-34); Mean Corpuscular Volume 84.7 FL (87-102); Mean Platelet Volume 9.6 FL (9.6-12.0); Monocytes # 0.3 10*3/uL (0.11-0.8); Neutrophils # 2.3 10*3/uL (1.4-7.4); Neutrophils % 50.6 % (38.7-73.9); Platelet Count 278 T/CUMM (130-400); Red Blood Count 4.59 MC/CUMM (3.8-5.5); Red Cell Distribution Width 12.5 % (9.3-17.3); White Blood Count 4.5 T/CUMM (4-12)
--- NOTE | 2016-10-20 10:16 | XRay Report ---
XR chest 2V Date: 10/20/2016 9:51 AM History: Chest pain Comparison: 10/19/2016 Technique: PA and lateral chest Findings: The heart is normal in size with coronary artery stents. The lungs and mediastinum are stable in appearance. Degenerative changes with prior cholecystectomy and additional postoperative findings in the left upper quadrant. Impression: No acute cardiopulmonary pathology identified. PROCEDURE INTERPRETED AT [facility] DEPARTMENT OF RADIOLOGY Final Report Signed by: Dr. Ann Clark
[2016-10-20 10:23] LABS: PT Patient Result 10.3 SECS; Partial Thromboplastin Time 26.3 SECS (0-40)
--- NOTE | 2016-10-20 10:25 | Cardiology History & Physical ---
Assessment and Plan - Time spent with patient Time spent with patient: Greater than 30 minutes (1) Chest pain Status: Acute Assessment and plan: See plan of care listed below Current Visit: Yes (2) Coronary artery disease Status: Chronic Assessment and plan: See plan of care listed below Current Visit: Yes (3) Diabetes mellitus Status: Chronic Assessment and plan: See plan of care listed below Current Visit: Yes (4) Essential hypertension Status: Chronic Assessment and plan: See plan of care listed below Current Visit: Yes (5) Dyslipidemia Status: Chronic Assessment and plan: See plan of care listed below Current Visit: No (6) Family history of premature CAD Status: Chronic Current Visit: No History of Present Illness Chief complaint: chest pain, known CAD History of present illness: 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 GILMORE PATIENT IS BEING SEEN IN THE ER OF [facility] Ms. Pierre, 46WF, routinely followed by Dr. Gilmore. She was last seen in cardiology clinic July 22, 2016. Risk factors include: Known coronary artery disease, hypertension, dyslipidemia, family history of premature coronary artery disease, former smoker. Patient underwent cardiac catheterization July 16, [address] Mantilla and required PCI to proximal LAD lesion. I do not see a recent echocardiogram. She has been compliant with her medications, particularly aspirin and Plavix without fail. Patient presented to the emergency department at [facility] after experiencing chest pain intermittently since Wednesday evening. Wednesday, the chest discomfort, described as a squeezing sensation in the center of her chest, but began to radiate to her upper back. This occurred with exertion and relieved itself with rest. She came to the emergency department last evening, underwent workup and was discharged home as her EKG was unremarkable, cardiac biomarkers were unremarkable as well. The chest discomfort continued and this morning, while at work, she began to feel the chest discomfort radiated to her left jaw with exertion. She became nauseated, diaphoretic and weak. She took a nitroglycerin and initially it did not improve her symptoms. She returned to the emergency department today and the chest discomfort has improved but persists. At its worst, rated as a 7, currently a 2 on a scale of 1-10. Her EKG is unremarkable. Cardiac biomarkers are pending. She has received aspirin, therapeutic Lovenox, lipid-lowering agent and nitrates. I have discussed this case with Dr. Casarez and she is being readied for cardiac catheterization. Left heart catheterization July 16, 2016L Impression: 1. Normal LV systolic function with ejection fraction estimated be 60% without segmental wall motion abnormality 2. Right dominant system 3. Coronary artery disease as described above including but not limited to: A. Critical, 99% proximal LAD stenosis as detailed above B. Only mild irregularities in the circumflex system C. 40% proximal RCA stenosis 4. Status post successful stenting of proximal LAD with Jevity stent (2.75 x 20 Synergy dilated to 3.6 mm proximally, with good result) ASSESSMENT/PLAN: 1. CHEST PAIN CONCERNING FOR ANGINA -patient will be taken to the cardiac catheterization lab 2. KNOWN CAD -has received aspirin, Plavix this morning, Lovenox, lipid- lowering agent and nitrate 3. DYSLIPIDEMIA -fasting lipid profile in the morning. Continue lipid- lowering agent 4. HYPERTENSION -usually well controlled. 5. DIABETES -hold Metformin. Home Medications Medication Instructions Recorded Confirmed Type metFORMIN [Glucophage] 1,000 mg PO BID W/MEALS 12/26/14 10/20/16 History Nitroglycerin Sl Tab [Nitrostat] 0.4 mg SL Q5M PRN #1 bottle 07/17/16 10/20/16 Rx Rosuvastatin [Crestor] 20 mg PO BEDTIME #30 tablet 07/17/16 10/20/16 Rx Aspirin [Ecotrin] 81 mg PO DAILY 10/19/16 10/20/16 History Clopidogrel [Plavix] 75 mg PO DAILY 10/19/16 10/20/16 History Lisinopril/Hctz 20-12.5 [Prinzide 1 tablet PO DAILY 10/19/16 10/20/16 History 20-12.5] Metoclopramide Tab [Reglan Tab] 5 mg PO ACHS #40 tablet 10/19/16 10/20/16 Rx Pantoprazole Tab [Protonix Tab] 40 mg PO DAILY #30 tablet 10/19/16 10/20/16 Rx Tizanidine HCl [Zanaflex] 2 mg PO Q6H #40 capsule 10/19/16 10/20/16 Rx Allergies Allergy/AdvReac Type Severity Reaction Status Date / Time No Known Allergies Allergy Verified 04/24/15 14:41 Review of systems: REVIEW OF SYSTEMS: - Constitutional Constitutional: Present: Fatigue. Absent: syncope, anorexia, night sweats - EENT Eyes: Absent: blurry vision, loss of vision, diplopia Ears: Absent: decreased hearing, ear pain, ear discharge - Cardiovascular Cardiovascular: Present: chest pain with exertion and at rest. Dyspnea on exertion. Denies edema, palpitations. Absent: chest pain with deep breath, claudication - Respiratory Respiratory: Present: LOPEZ, denies cough. Absent: wheezing, hemoptysis, change in phlegm color - Gastrointestinal Gastrointestinal: Denies: constipation. Absent: abdominal pain, hematemesis, hematochezia, melena, change in bowel habits, nausea - Genitourinary Genitourinary: Absent: difficulty urinating, dysuria, urinary hesitancy, flank pain - Musculoskeletal Musculoskeletal: Present: back pain Absent: joint swelling, muscle cramps, muscle weakness - Neurological Neurological: Present: normal gait without frequent falls. Absent: dizziness, hemiparesis - Psychiatric Psychiatric: Absent: anxiety, depression, difficulty concentrating - Endocrine Endocrine: Present: fatigue. Absent: cold intolerance, heat intolerance, polyuria, polyphagia, polydipsia - Hematologic/Lymphatic Hematologic/Lymphatic: Present: easy bruising. Absent: easy bleeding -Integumentary Integumentary: Absent: lesions, rashes, skin breakdown Medical,Surgical,& Family Hx - Medical History Cardio: History of: CAD, Hypertension No history of: Cardiac Dysrhythmia, Cerebrovascular Disease Psychological: History of: Anxiety Disorders Endocrine: History of: Diabetes Mellitus (NIDDM), Dyslipidemia Gastrointestinal: History of: GERD Musculoskeletal: History of: Degenerative Disk Disease - Surgical History Cardiac Surgeries: Sugical HX of: Cardiac Catheterization (x4) HEENT Surgeries: Surgical HX of: Tonsilectomy & Adenoidectomy Abdominal Surgeries: Surgical HX of: Appendectomy, Cholecystectomy Reproductive Surgeries: Surgical HX of;: Hysterectomy - Social History Smoking Status: Former smoker Have you smoked in the last 12 months: No Frequency of Alcohol Use: None Type of Drug Use: None Marital Status: Single Cardiology Physical Exam - Constitutional Vitals: Vital Signs Temp Pulse Resp BP Pulse Ox 97.6 F 65 20 118/79 97 10/20/16 09:45 10/20/16 09:45 10/20/16 09:45 10/20/16 09:45 10/20/16 09:34 Intake and Output 10/19/16 10/20/16 10/20/16 23:59 07:59 15:59 Other: Weight 71.668 kg Patient Weight 10/20/16 23:59 Weight 71.668 kg Exam: General: [Appears well with no apparent distress.] [Pleasant and cooperative. ] [Appears comfortable.] HEENT: [PERRL, normocephalic, atraumatic. Mucous membranes moist. No jaundice noted. Conjunctiva moist and clear, sclerae anicteric] Neck: No JVD/HJR, no thyromegaly or lymphadenopathy noted. No carotid bruit appreciated Cardiac: [Regular rate and rhythm.] [No obvious murmur, rub or gallop.] Lungs: [Clear to auscultation without accessory muscle use to assist the respiratory pattern.] Using oxygen intermittently Abdomen: Soft, bowel sounds normoactive. Nontender and nondistended. No abdominal bruit or thrill noted. No masses noted. Musculoskeletal: No fluid collection. Decreased range of motion is noted. Extremities: No clubbing, cyanosis noted. [ No edema noted.] Right femoral pulse 2+ . Upper extremity pulses 2+. Lower extremity pulses 2+. Capillary refill less than 3 seconds. Skin: No unusual lesions or rashes. No skin breakdown appreciated. Neuro: Awake, alert and oriented 3. Moves all extremities well without hemiparesis or paralysis. No essential tremor is appreciated. Result/EKG - Labs CBC & BMP: 10/20/16 09:52 10/20/16 09:52 Lab Results: I have reviewed the past 24 hour labs Labs: Laboratory Results - last 24 hr 10/20/16 09:52 WBC 4.5 RBC 4.59 Hgb 12.9 Hct 38.9 MCV 84.7 L MCH 28 MCHC 33.2 RDW 12.5 Plt Count 278 MPV 9.6 Neut % (Auto) 50.6 Lymph % (Auto) 37.6 [place] % (Auto) 6.0 Eos % (Auto) 4.7 Baso % (Auto) 0.9 H Neut # (Auto) 2.3 Lymph # (Auto) 1.7 [place] # (Auto) 0.3 Eos # (Auto) 0.2 Baso # (Auto) 0.0 Immature Gran % 0.2 Nucleated RBC % 0.0 Immature Gran # 0.01 Nucleated RBCs # 0.00 - Diagnostic Findings Procedure: Chest x-ray: report reviewed by me - EKG EKG results: interpreted by me EKG shows: sinus rhythm
[2016-10-20 10:30] LABS: Calcium 8.6 MG/DL (8.5-10.1); Osmolality,Calculated 278.2 MOS/KG (273-304); Potassium 3.9 MMOL/L (3.5-5.1)
[2016-10-20] MEDS ORDERED: MAGNESIUM SULF RIDER 4 GM in PREMIX 1 EACH IV PRN (10:36)
[2016-10-20] MEDS ORDERED: BISACODYL 5 MG TABLET PO PRN (10:36)
[2016-10-20] MEDS ORDERED: ACETAMINOPHEN 325 MG TABLET PO PRN (10:36)
[2016-10-20] MEDS ORDERED: MAGNESIUM SULF RIDER 2 GM in PREMIX 1 EACH IV PRN ×2 (10:36→10:38)
[2016-10-20] MEDS ORDERED: ZALEPLON 5 MG CAPSULE PO PRN (10:36)
[2016-10-20] MEDS ORDERED: DOCUSATE SODIUM 100 MG CAPSULE PO PRN (10:36)
[2016-10-20] MEDS ORDERED: POTASSIUM CHLORIDE RIDER 10 MEQ in PREMIX 1 EACH IV PRN (10:38)
[2016-10-20] MEDS ORDERED: diphenhydrAMINE CAP 25 MG CAPSULE PO ONE (10:38)
[2016-10-20] MEDS ORDERED: DIAZEPAM 5 MG TABLET PO ONE (10:38)
--- NOTE | 2016-10-20 10:39 | History and Physical Update ---
Sedation H&P Update - History and Physical H&P was reviewed, the patient examined and there: are no changes in the patients condition since last H&P was completed. - Dictation Physical: refer to H&P completed by admitting physician - Physical Exam Mental Status: alert and oriented Heart: regular rate and rhythm Lung: clear to auscultation Abdomen: within normal limits Vitals: within normal limits - Sedation Plan for Sedation: minimal Patient Consent: Procedure disscussed with patient and patinet has consented., Risks and benefits were discussed with patient,including infection,, bleeding, injury to surrounding structures, seizure, temporary nerve, Patient understands and accepts potential risks/benefits and agrees to (Left heart cath and possible PTCA or stent were discussed with the patient. The risk of the procedure include but are not limited to a small risk of injury to the vessel, abnormal heart rhythm, stroke, heart attack, need for emergent surgery, contrast reaction, restenosis, or . The patient voices understanding, agrees with the plan, and desires to proceed with the heart catheterization.), proceed. ASA Class: III Airway Assessment: Class II: Soft palate, uvula, fauces visible
[2016-10-20] MEDS ORDERED: NITROGLYCERIN SL 0.4 MG TABLET SL PRN (10:41)
[2016-10-20] MEDS ORDERED: ATORVASTATIN 40 MG TABLET PO STA (10:41)
[2016-10-20] MEDS ORDERED: DEXTROSE 50% 25 GM/50 ML VIAL IV PRN (11:04)
[2016-10-20] MEDS ORDERED: GLUCAGON 1 MG VIAL IM PRN (11:04)
[2016-10-20 11:24] LABS: Troponin I Only < 0.015 NG/ML (0.00-0.045)
[2016-10-20] MEDS ORDERED: diphenhydrAMINE CAP 50 MG CAPSULE ONE (11:34)
[2016-10-20] MEDS ORDERED: ATORVASTATIN 40 MG TABLET ONE (11:34)
[2016-10-20] MEDS ORDERED: DIAZEPAM 5 MG TABLET ONE (11:34)
[2016-10-20] MEDS ORDERED: LIDOCAINE 1% 20 ML VIAL ONE (11:57)
[2016-10-20] MEDS ORDERED: MIDAZOLAM 2 MG/2 ML VIAL ONE (11:58)
[2016-10-20] MEDS ORDERED: MEPERIDINE 25 MG/1 ML VIAL ONE (11:58)
--- NOTE | 2016-10-20 12:58 | Cardiology Operative Report ---
Date of Procedure:: 10/20/16 Post-op diagnosis: same (Chest pain radiating to the left sternal suggestive of unstable angina. Patient had a stent of her proximal LAD done in 06/2016. The chest pain is not going away. Evaluate for ischemia/new CAD/problems with the stent) Procedure: Date of procedure: 10/20/16 Procedure Preformed: Left heart cath Coronary angiography Left ventriculography Angiogram of the right femoral artery Angio-Seal of the right femoral artery-successful Surgeon / Physician: Onofre Casarez Marine [employer] Consultant: Femi Gutierrez Post-op diagnosis: same (Chest pain radiating to the left sternal suggestive of unstable angina. Patient had a stent of her proximal LAD done in 06/2016. The chest pain is not going away. Evaluate for ischemia/new CAD/problems with the stent) procedure: The patient was prepped and draped in usual manner. Entered the right femoral artery via the Seldinger technique. I used a sheath and then used a JL4 and engaged left coronary. Multiple views were taken. I then exchanged for a JR4. Multiple views of the right coronary were taken. I then exchanged for an angled pigtail. I crossed the valve. Left ventricular end-diastolic pressures measured. Left ventriculography was done. Left ventricle pullback was done. The catheters were then removed from the patient. Please see the cath data sheets for the details of catheters used. Complications: None Hemodynamic data: LVEDP was 20 mmHg. Angiographic data: The left main coronary was large and had minimal luminal irregularities. The left anterior descending artery was moderate size and had minimal luminal irregularities. The proximal LAD stent was widely patent. The left circumflex system was moderate to large and there are minimal luminal irregularities in the circumflex The right coronary artery was moderate in size, dominant vessel with the PDA. There were mild at most moderate proximal diseased areas, probably less than 40 % narrowing. Otherwise there were minimal luminal irregularities. GRAJEDA left ventriculography revealed normal global/regional left ventricular systolic function. Overall ejection fraction was at least 55%. There is no significant mitral regurgitation. Angiogram of the right femoral artery revealed the puncture site to be in a large vessel, above the bifurcation. It was suitable for Angio-Seal. Impression: Widely patent LAD stent[or stents] Mild to at most moderate disease in the right coronary. Mild disease in other areas Normal global/regional left ventricular systolic function. LVEF is greater than 55% Moderate elevation of LVEDP, 20 mmHg Angiogram of the right femoral artery-via follow-through from the LV gram Angio-Seal right femoral artery-successful Plan/recommendations: The patient will have risk factors optimized. It is apparent that it is apparent from this study that the patient's left chest pain radiating to the left jaw is not due to ischemic heart disease. It could be C- spine related, musculoskeletal related, GI, esophageal spasm, anxiety, or some combination of above. The plan at this point would be to reassure her. I will treat for GI and muscle skeletal cause. The patient will be on antiplatelet medications to include aspirin indefinitely and Plavix or Brilinta for at least a year after the original stents were placed, in June 2016. Follow-up will be scheduled. Addenda: I saw the patient post-cath. the groin puncture site and distal pulse are stable. vital signs are stable and the patient will be observed closely overnight. Specimens: none sent Estimated blood loss: minimal Condition: stable Anesthesia: local, conscious sedation Disposition: floor Additional CC's: Matthew Gilmore Anesthesia: local, minimal conscious sedation Surgeon / Physician: Onofre Casarez Marine [employer] Consultant: other Estimated blood loss: minimal Specimens: none sent Condition: stable Disposition: floor
[2016-10-20] MEDS: INSULIN REGULAR 100 UNIT/ML SUBCUT SCH ×3 (13:19→20:50)
[2016-10-20] MEDS: tiZANidine 4 MG TABLET PO SCH ×3 (13:19→22:05)
[2016-10-20] MEDS: METOCLOPRAMIDE 5 MG TABLET PO SCH ×3 (13:20→20:50)
[2016-10-20] MEDS: SODIUM CHLORIDE 0.45% 1,000 ML IV SCH ×4 (13:20→22:04)
[2016-10-20] MEDS: GABAPENTIN 100 MG CAPSULE PO SCH ×3 (14:32→20:48)
[2016-10-20] MEDS: traMADol 50 MG TABLET PO SCH ×2 (14:32→20:49)
[2016-10-20] MEDS: ACETAMINOPHEN 325 MG TABLET PO SCH ×2 (14:32→20:48)
[2016-10-20 19:27] LABS: Troponin I Only < 0.015 NG/ML (0.00-0.045)
[2016-10-20] MEDS ORDERED: ROSUVASTATIN 10 MG TABLET PO SCH (21:00)
[2016-10-21] MEDS: SODIUM CHLORIDE 0.45% 1,000 ML IV SCH ×2 (03:09→09:50)
[2016-10-21] MEDS: tiZANidine 4 MG TABLET PO SCH ×2 (03:58→09:50)
[2016-10-21 04:52] LABS: Basophils % 0.6 % (0.0-0.8); Eosinophils # 0.4 10*3/uL (0.0-0.87); Eosinophils % 7.3 % (0.00-10.9); Hematocrit 34.8 VOL% (35.7-47.0); Hemoglobin 11.7 GM/DL (12.0-16.0); Immature Granulocytes % 0.2 %; Immature Granulocytes Absolute 0.01 #; Lymphocytes # 1.8 10*3/uL (1.4-4.0); Lymphocytes % 37.3 % (21.3-54.2); Mean Corpuscular HGB Conc 33.6 GM/DL (32-36); Mean Corpuscular Hemoglobin 28 PG (27-34); Mean Corpuscular Volume 83.3 FL (87-102); Mean Platelet Volume 9.8 FL (9.6-12.0); Monocytes # 0.3 10*3/uL (0.11-0.8); Monocytes % 5.7 % (1.7-12.7); Neutrophils # 2.3 10*3/uL (1.4-7.4); Neutrophils % 48.9 % (38.7-73.9); Platelet Count 248 T/CUMM (130-400); Red Blood Count 4.18 MC/CUMM (3.8-5.5); Red Cell Distribution Width 12.4 % (9.3-17.3); White Blood Count 4.8 T/CUMM (4-12)
[2016-10-21 05:25] LABS: Albumin 2.9 G/DL (3.4-5.0); Bilirubin,Total 0.6 MG/DL (0.2-1.0); Calcium 8.2 MG/DL (8.5-10.1); Osmolality,Calculated 280.1 MOS/KG (273-304); Risk Ratio 5.7; Total Protein 5.7 G/DL (6.4-8.3)
[2016-10-21 05:33] LABS: Troponin I Only < 0.015 NG/ML (0.00-0.045)
--- NOTE | 2016-10-21 07:35 | EKG Report ---
Stationary ECG Study [facility] Test Date: 10/21/2016 7:37:10 AM Pat Name: ETHAN SINGLETON Department: Room: 283 Gender: F Concessionist: RADHA : 1970 Requested by: Hira Casarez Order Number: [id number] Reading MD: HIRA CASAREZ Intervals [place] Rate: 59 P: 54 AR: 175 QRS: 56 QRSD: 85 T: 46 QT: 408 QTc: 407 Interpretive Statements SINUS RHYTHM LOW QRS VOLTAGE IN PRECORDIAL LEADS Electronically Signed On 10-22-16 14:56:09 CDT by HIRA CASAREZ [email or web address]
[2016-10-21] MEDS: INSULIN REGULAR 100 UNIT/ML SUBCUT SCH ×2 (08:40→11:56)
[2016-10-21] MEDS: GABAPENTIN 100 MG CAPSULE PO SCH (08:41)
[2016-10-21] MEDS: METOCLOPRAMIDE 5 MG TABLET PO SCH ×2 (08:41→10:30)
[2016-10-21] MEDS: ACETAMINOPHEN 325 MG TABLET PO SCH (08:42)
[2016-10-21] MEDS: traMADol 50 MG TABLET PO SCH (08:42)
[2016-10-21] MEDS ORDERED: PANTOPRAZOLE 40 MG TABLET PO SCH (09:00)
[2016-10-21] MEDS ORDERED: ASPIRIN EC 81 MG TABLET PO SCH (09:00)
[2016-10-21] MEDS ORDERED: CLOPIDOGREL 75 MG TABLET PO SCH (09:00)
--- NOTE | 2016-10-21 11:30 | Discharge Summary ---
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 GILMORE Ms. Pierre, 46WF, routinely followed by Dr. Gilmore. Risk factors include: Known coronary artery disease, hypertension, dyslipidemia, family history of premature coronary artery disease, former smoker. Patient underwent cardiac catheterization July 16, [address] Mantilla and required PCI to proximal LAD lesion. I do not see a recent echocardiogram. She has been compliant with her medications, particularly aspirin and Plavix without fail. Patient presented to the emergency department at [facility] October 20, 2016 with complaints concerning for angina. She underwent elective cardiac catheterization, performed by Dr. Casarez, with no new CAD or stenosis noted. Following impression is noted for cardiac catheterization: Impression: Widely patent LAD stent[or stents] Mild to at most moderate disease in the right coronary. Mild disease in other areas Normal global/regional left ventricular systolic function. LVEF is greater than 55% Moderate elevation of LVEDP, 20 mmHg Angiogram of the right femoral artery-via follow-through from the LV gram Angio-Seal right femoral artery-successful She tolerated the procedure well without complication was returned to our telemetry unit in stable condition. She is being treated for a musculoskeletal component to her chest discomfort. This morning, her chest pain has improved. Her labs are stable as are her vital signs. Having felt she is met maximal medical therapy, patient is being discharged home in stable condition. She will continue all of her preadmission medications including: Aspirin 81 mg orally daily Plavix 75 mg orally daily Crestor 20mg orally each evening Lisinopril HCT 20/12.51 p.o. daily Pantoprazole 40 mg orally daily Metformin 500 mg orally twice daily. Start September New meds: Acetaminophen 325 mg orally twice daily 1 week Neurontin 100 mg orally 3 times daily 1 week Ultram 50 mg orally twice daily 1 week Blood pressure will not allow for introduction of a beta-federica. - Time spent with patient Time with patient DS: Greater than 30 minutes Diagnosis - Discharge Diagnosis (1) Chest pain Status: Resolved (2) Coronary artery disease Status: Chronic (3) Diabetes mellitus Status: Chronic (4) Essential hypertension Status: Chronic (5) Dyslipidemia Status: Chronic (6) Family history of premature CAD Status: Chronic Specialty Discharge - Follow Up or Referrals Follow up with: Matthew Gilmore MD [Physician] - (2-3 weeks) Discharge Plan - Discharge Data Disposition: Disch To Home/Self Care Condition at Discharge: Stable Discharge Diet: heart healthy Activity: other (Post cath expectations) Hygiene: no restrictions Weight Bearing at Discharge: other (Post cath expectations) Driving: other (Post cath expectations) Contact your physician if you experience:: fever over 101, Difficulty voiding, Redness or swelling, Nausea/Vomiting, Shortness of breath, Bleeding, pain uncontrolled by pain medications - Discharge Medications New Acetaminophen Tab [Tylenol Tab] 325 mg PO BID #14 tablet Gabapentin Cap/Tab [Neurontin Cap/Tab] 100 mg PO TID #21 capsule traMADol TAB [Ultram] 50 mg PO BID #14 tablet Continue metFORMIN [Glucophage] 1,000 mg PO BID W/MEALS Lisinopril/Hctz 20-12.5 [Prinzide 20-12.5] 1 tablet PO DAILY Aspirin [Ecotrin] 81 mg PO DAILY Nitroglycerin Sl Tab [Nitrostat] 0.4 mg SL Q5M PRN #1 bottle PRN Reason: Chest Pain Rosuvastatin [Crestor] 20 mg PO BEDTIME #30 tablet Clopidogrel [Plavix] 75 mg PO DAILY Pantoprazole Tab [Protonix Tab] 40 mg PO DAILY #30 tablet - Follow Up or Referral - Forms/Instructions Additional Discharge Instructions: Please ask patient to resume metformin 500 mg orally twice daily morning, October 22, 2016. Exam - Constitutional Vitals: Period Temp Pulse Resp BP Sys/[place] Pulse Ox Last 24 Hr 97.6 F-98.7 F 47-68 16-20 90-123/57-77 91-100 Exam: General: [Appears well with no apparent distress.] [Pleasant and cooperative. ] [Appears comfortable.] HEENT: [PERRL, normocephalic, atraumatic. Mucous membranes moist. No jaundice noted. Conjunctiva moist and clear, sclerae anicteric] Neck: No JVD/HJR, no thyromegaly or lymphadenopathy noted. No carotid bruit appreciated Cardiac: [Regular rate and rhythm.] [No murmur rub or gallop.] Lungs: [Clear to auscultation without accessory muscle use to assist the respiratory pattern.] Not requiring oxygen. Abdomen: Soft, bowel sounds normoactive. Nontender and nondistended. No abdominal bruit or thrill noted. No masses noted. Musculoskeletal: No fluid collection. Decreased range of motion is noted. Extremities: Right groin soft, free of hematoma or bruit. No clubbing, cyanosis noted. [ No edema noted.] Upper extremity pulses 2+. Lower extremity pulses 2+. Capillary refill less than 3 seconds. Skin: No unusual lesions or rashes. No skin breakdown appreciated. Neuro: Awake, alert and oriented 3. Moves all extremities well without hemiparesis or paralysis. No essential tremor is appreciated. Discharge Results Labs on day of discharge: Labs from last 24 hours 10/21/16 10/21/16 10/21/16 10:38 07:24 04:21 WBC RBC Hgb Hct MCV MCH MCHC RDW Plt Count MPV Neut % (Auto) Lymph % (Auto) [place] % (Auto) Eos % (Auto) Baso % (Auto) Neut # (Auto) Lymph # (Auto) [place] # (Auto) Eos # (Auto) Baso # (Auto) Immature Gran % Nucleated RBC % Immature Gran # Nucleated RBCs # Sodium 142 Potassium 4.0 Chloride 108 H Carbon Dioxide 29 Anion Gap 9.0 BUN 10 Creatinine 0.70 GFR Calculation 107 BUN/Creatinine Ratio 14.00 Glucose 76 POC Glucose 130 H 113 H Calculated Osmolality 280.1 Calcium 8.2 L Total Bilirubin 0.60 AST 26 ALT 36 Alkaline Phosphatase 94 Total Creatine Kinase CK-MB (CK-2) Troponin I Total Protein 5.7 L Albumin 2.9 L Globulin 2.8 Albumin/Globulin Ratio 1.0 L Triglycerides 265 H Cholesterol 171 LDL Cholesterol 99.0 VLDL Cholesterol 53.0 HDL Cholesterol 30 L Heart Disease Risk Ratio 5.70 10/21/16 10/21/16 10/20/16 04:21 04:21 19:26 WBC 4.8 RBC 4.18 Hgb 11.7 L Hct 34.8 L MCV 83.3 L MCH 28 MCHC 33.6 RDW 12.4 Plt Count 248 MPV 9.8 Neut % (Auto) 48.9 Lymph % (Auto) 37.3 [place] % (Auto) 5.7 Eos % (Auto) 7.3 Baso % (Auto) 0.6 Neut # (Auto) 2.3 Lymph # (Auto) 1.8 [place] # (Auto) 0.3 Eos # (Auto) 0.4 Baso # (Auto) 0.0 Immature Gran % 0.2 Nucleated RBC % 0.0 Immature Gran # 0.01 Nucleated RBCs # 0.00 Sodium Potassium Chloride Carbon Dioxide Anion Gap BUN Creatinine GFR Calculation BUN/Creatinine Ratio Glucose POC Glucose 361 H Calculated Osmolality Calcium Total Bilirubin AST ALT Alkaline Phosphatase Total Creatine Kinase 47 CK-MB (CK-2) < 1.0 Troponin I < 0.015 Total Protein Albumin Globulin Albumin/Globulin Ratio Triglycerides Cholesterol LDL Cholesterol VLDL Cholesterol HDL Cholesterol Heart Disease Risk Ratio 10/20/16 10/20/16 18:52 16:18 WBC RBC Hgb Hct MCV MCH MCHC RDW Plt Count MPV Neut % (Auto) Lymph % (Auto) [place] % (Auto) Eos % (Auto) Baso % (Auto) Neut # (Auto) Lymph # (Auto) [place] # (Auto) Eos # (Auto) Baso # (Auto) Immature Gran % Nucleated RBC % Immature Gran # Nucleated RBCs # Sodium Potassium Chloride Carbon Dioxide Anion Gap BUN Creatinine GFR Calculation BUN/Creatinine Ratio Glucose POC Glucose 232 H Calculated Osmolality Calcium Total Bilirubin AST ALT Alkaline Phosphatase Total Creatine Kinase 54 CK-MB (CK-2) < 1.0 Troponin I < 0.015 Total Protein Albumin Globulin Albumin/Globulin Ratio Triglycerides Cholesterol LDL Cholesterol VLDL Cholesterol HDL Cholesterol Heart Disease Risk Ratio - Imaging and Cardiology Cardiology Procedure: report reviewed by me Procedure: Chest x-ray: report reviewed by sd DS: Provider Date of admission: 10/20/16 10:36 Primary care physician: . No PCP Attending physician on admission: Onofre Casarez MD Consults: 10/20/16 10:42 Consult to Pharmacy [CONS] Routine Reason for Pharmacy Consult: Adjust Meds Renal Funct Discharging clinician: Bryanna Scruggs NP Expected date of discharge: 10/21/16
[2016-10-21 11:36] VITALS: BP 107/69
== END 2016-10-21 15:14 | disposition home or self-care (01) ==
LOC: N.EDINP 09:29 → N.ED 09:29 → N.TELEN 11:03
PROVIDERS: ADMIT Internal Medicine Cardiovascular Disease; ATTEND Internal Medicine Cardiovascular Disease
PROC: CLCCHCL (ICD-10-PCS; 2016-10-20 12:45)

== ENCOUNTER 2016-12-06 12:46 | Observation (INO) ==
[2016-12-06] MEDS ORDERED: SODIUM CHLORIDE 0.9% 1,000 ML IV STA (13:19)
[2016-12-06 13:25] LABS: Basophils % 0.8 % (0.0-0.8); Eosinophils # 0.1 10*3/uL (0.0-0.87); Eosinophils % 2.6 % (0.00-10.9); Hematocrit 38.4 VOL% (35.7-47.0); Hemoglobin 13.3 GM/DL (12.0-16.0); Immature Granulocytes % 0.2 %; Immature Granulocytes Absolute 0.01 #; Lymphocytes # 1.5 10*3/uL (1.4-4.0); Lymphocytes % 29.8 % (21.3-54.2); Mean Corpuscular HGB Conc 34.6 GM/DL (32-36); Mean Corpuscular Hemoglobin 28 PG (27-34); Mean Corpuscular Volume 82.1 FL (87-102); Mean Platelet Volume 10.1 FL (9.6-12.0); Monocytes # 0.3 10*3/uL (0.11-0.8); Monocytes % 6.9 % (1.7-12.7); Neutrophils % 59.7 % (38.7-73.9); Platelet Count 246 T/CUMM (130-400); Red Blood Count 4.68 MC/CUMM (3.8-5.5); Red Cell Distribution Width 12.9 % (9.3-17.3); White Blood Count 4.9 T/CUMM (4-12)
[2016-12-06 13:51] LABS: Apearance,Urine CLEAR (Clear); Bilirubin,Urine Negative (Negative); Blood, Urine Negative (Negative); Glucose,Urine (UA) >=500 mg/dL (Negative); Ketones,Urine Negative (Negative); Nitrite,Urine Negative (Negative); Protein,Urine Negative; RBC,Urine <1 /HPF (0-4); Squamous Epithelial Cell,Urine Occasional /HPF (0-10); Urine Color Straw (Yellow); Urine Specific Gravity 1.014 (1.001-1.035); Urine Urobilinogen < 2.0 EU/DL (0.2-1.0); WBC,Urine <1 /HPF (0-6)
[2016-12-06 13:52] LABS: Blood Urea Nitrogen 5 MG/DL (7-18); Calcium 8.7 MG/DL (8.5-10.1); Glucose 401 MG/DL (74-106); Osmolality,Calculated 283.1 MOS/KG (273-304); Potassium 3.4 MMOL/L (3.5-5.1); Sodium 135 MMOL/L (136-145); Troponin I Only < 0.015 NG/ML (0.00-0.045)
--- NOTE | 2016-12-06 14:04 | XRay Report ---
Portable chest. Indication: Chest pain. Comparison: October 20, 2016. The heart and mediastinal contours are unremarkable. The pulmonary vasculature is normal. There is no consolidation, pneumothorax, or pleural effusion. The osseous structures are unremarkable. Impression: No abnormality is seen. PROCEDURE INTERPRETED AT [facility] DEPARTMENT OF RADIOLOGY Final Report Signed by: Dr. Angelita Alan
[2016-12-06] MEDS ORDERED: INSULIN REGULAR 100 UNIT/ML IV STA (14:13)
[2016-12-06] MEDS ORDERED: INSULIN REGULAR 100 UNIT/ML ONE (14:37)
[2016-12-06] MEDS ORDERED: ONDANSETRON 4 MG/2 ML VIAL ONE (14:41)
[2016-12-06] MEDS ORDERED: ONDANSETRON 4 MG/2 ML VIAL IV STA (14:49)
[2016-12-06] MEDS ORDERED: NITROGLYCERIN SL 0.4 MG TABLET SL STA (15:45)
[2016-12-06] MEDS ORDERED: ASPIRIN CHEW 81 MG TABLET PO STA (15:52)
[2016-12-06] MEDS ORDERED: ENOXAPARIN 60 MG/0.6 ML SYRINGE SUBCUT STA (15:53)
[2016-12-06] MEDS ORDERED: MAGNESIUM SULF RIDER 4 GM in PREMIX 1 EACH IV PRN (15:53)
[2016-12-06] MEDS ORDERED: MAGNESIUM SULF RIDER 2 GM in PREMIX 1 EACH IV PRN (15:53)
[2016-12-06] MEDS ORDERED: NITROGLYCERIN 2% OINT 1 INCH/GM PACK TOP STA (15:55)
[2016-12-06] MEDS ORDERED: ENOXAPARIN 40 MG/0.4 ML SYRINGE SUBCUT SCH (16:00)
--- NOTE | 2016-12-06 16:04 | Emergency Department Note ---
IRoc Brooke, am scribing for, and in the presence of, Janel Santa DO 13:27. I, Janel Santa DO, personally performed the services described in this documentation, ascribed by Buffy Brian in my presence, and it is both accurate and complete [id number] . Arrival - Arrival Chief Complaint: Chest Pain Stated Complaint: Chest pain and blood sugar over 500 ED Nursing Triage Note: C/O HAVING CHEST PAIN X 30 MINUTES., STATES HAD PTCA DONE IN JUN, STATES TODAY SHE HAD A NEAR SYNCOPE EPISODE., + NAUSEA., STATES RECENTLY HAD A STOMACH VIRUS., EKG OBTAINED AT TIME OF TRIAGE, ALSO C/O HER GLUCOSE BEING ELEVATED- WILL CHECK AT TIME TO ROOM Mode of Arrival: Ambulatory Limitations: No Limitations Source: Patient, RN Notes Reviewed Time Seen by Provider: 12/06/16 13:11 - History of Present Illness HPI Narrative: Patient is a 46 year old female who presents to the ED with c/o elevated blood sugar and chest pain. Patient says she has been vomiting, nausea and diarrhea since last night. She says she was feeling bad so she finally checked her blood sugar and it was over 500 so she got sent home from work today. Patient says she laid down to rest but it did not get better. On the way to the ED, she started having crushing chest pain. She describes the pain as similar to her previous pains when she got a heart cath in [place] by dr. lu. She has not taken any Nitro. She says she is currently nauseated, has intermittent shortness of breath, and has a headache. Patient says she was just prescribed Insulin but says she was unable to get the prescription filled because [facility] was out. She says they told her the medication would be in "tomorrow after 1500. " Patient does have a prescription for Metformin that she has been taking. She also has PMHx of CAD, HTN, anxiety, dyslipidemia, GERD, and degenerative disk disease. She has had two heart caths both of which had negative trop and ekgs. Allergies/Adverse Reactions: Allergies Allergy/AdvReac Type Severity Reaction Status Date / Time No Known Allergies Allergy Verified 12/06/16 12:56 Home Medications: Home Medications Medication Instructions Recorded Confirmed Type Nitroglycerin Sl Tab [Nitrostat] 0.4 mg SL Q5M PRN #1 bottle 07/17/16 12/06/16 Rx Rosuvastatin [Crestor] 20 mg PO BEDTIME #30 tablet 07/17/16 12/06/16 Rx Aspirin [Ecotrin] 81 mg PO DAILY 10/19/16 12/06/16 History Clopidogrel [Plavix] 75 mg PO DAILY 10/19/16 12/06/16 History Lisinopril/Hctz 20-12.5 [Prinzide 1 tablet PO DAILY 10/19/16 12/06/16 History 20-12.5] Metformin HCl 1,000 mg PO BID 12/06/16 12/06/16 History Review of System - Review of System 12 point system: reviewed and no additional remarkable complaints except as stated - Review of System Constitutional: Present: fever Respiratory: Present: other (intermittent shortness of breath). Absent: respiratory distress Cardiovascular: Present: chest pain Gastrointestinal: Present: nausea. Absent: abdominal pain, vomiting Skin: Absent: rash Neurological: Present: headache Medical,Surgical,& Family Hx - Medical History Cardio: History of: CAD, Hypertension No history of: Cardiac Dysrhythmia, Cerebrovascular Disease Psychological: History of: Anxiety Disorders Endocrine: History of: Diabetes Mellitus (NIDDM), Dyslipidemia Gastrointestinal: History of: GERD Musculoskeletal: History of: Degenerative Disk Disease - Surgical History Cardiac Surgeries: Sugical HX of: Cardiac Catheterization (x4) HEENT Surgeries: Surgical HX of: Tonsilectomy & Adenoidectomy Abdominal Surgeries: Surgical HX of: Appendectomy, Cholecystectomy Reproductive Surgeries: Surgical HX of;: Hysterectomy - Family History Family History: Reports;: Family Diabetes, Family Heart Disease, Family Hypertension - Social History Smoking Status: Smoker, status unknown Frequency of Alcohol Use: None Type of Drug Use: None Exam Vital Signs: Vital Signs Temperature 98.1 F 12/06/16 15:23 Pulse Rate 80 12/06/16 15:23 Respiratory Rate 20 12/06/16 15:23 Blood Pressure 106/86 12/06/16 15:23 O2 Sat by Pulse Oximetry 99 12/06/16 12:53 - General General appearance: alert, other (dehydrated and in pain) - Head Head exam: Present: atraumatic, normocephalic - Eye Eye exam: Present: normal appearance, PERRL, EOMI - ENT ENT exam: Present: normal exam, mucous membranes dry. Absent: mucous membranes moist - Neck Neck exam: Present: normal inspection - Chest Chest inspection: Present: normal inspection, symmetric chest wall rise - Respiratory Respiratory exam: Present: normal lung sounds bilaterally - Cardiovascular Cardiovascular exam: Present: regular rate, normal rhythm, normal heart sounds - Abdominal Exam Abdominal exam: Present: soft. Absent: distention, tenderness - Extremities Exam Extremities exam: Present: normal inspection - Back Exam Back exam: Present: normal inspection - Neurological Exam Neurological exam: Present: alert, oriented X3 - Psychiatric Psychiatric exam: Present: normal affect, normal mood - Skin Skin exam: Present: warm, dry, intact, normal color Course Course Narrative: Given how dehydrated patient looks will go ahead and give 1 L bolus and control her nausea with Zofran which works. However given that she describes this pain being is so close to her cardiac I will do cardiac workup I will also make sure this is not DKA. I will give her 5 units of insulin IV given her sugar is 409. EKG looks good troponin is negative but I will call cardiology because I feel this is more likely reflective of ACS pain. They agree with me they request chewable aspirin Lovenox repeat troponins and some Nitropaste. Patient is amenable to staying in the hospital. - Reevaluation(s) Reevaluation #1: Zofran is controlling her pain and the fluids helped her feel little better. However patient still feels crushing chest pain. Results - Labs CBC & BMP: 12/06/16 13:08 12/06/16 13:08 Lab Results: I have reviewed the patients labs Labs: Laboratory Tests 12/06/16 12/06/16 12/06/16 13:08 13:08 13:08 WBC 4.9 RBC 4.68 Hgb 13.3 Hct 38.4 MCV 82.1 L MCH 28 MCHC 34.6 RDW 12.9 Plt Count 246 MPV 10.1 Neut % (Auto) 59.7 Lymph % (Auto) 29.8 [place] % (Auto) 6.9 Eos % (Auto) 2.6 Baso % (Auto) 0.8 Neut # (Auto) 3.0 Lymph # (Auto) 1.5 [place] # (Auto) 0.3 Eos # (Auto) 0.1 Baso # (Auto) 0.0 Immature Gran % 0.2 Nucleated RBC % 0.0 Immature Gran # 0.01 Nucleated RBCs # 0.00 Sodium 135 L Potassium 3.4 L Chloride 101 Carbon Dioxide 23 Anion Gap 14.4 BUN 5 L Creatinine 1.10 H GFR Calculation 62 BUN/Creatinine Ratio 4.00 L Glucose 401 H POC Glucose Calculated Osmolality 283.1 Calcium 8.7 Total Creatine Kinase 54 Troponin I < 0.015 Urine Color Straw Urine Appearance Clear Urine pH 5.0 Ur Specific [place] 1.014 Urine Protein Negative Urine Glucose (UA) >=500 Urine Ketones Negative Urine Blood Negative Urine Nitrate Negative Urine Bilirubin Negative Urine Urobilinogen < 2.0 H Urine Leukocytes Negative Urine RBC <1 Urine WBC <1 Ur Squamous Epith Cells Occasional Ur Culture Indicated? Not indicated 12/06/16 13:10 WBC RBC Hgb Hct MCV MCH MCHC RDW Plt Count MPV Neut % (Auto) Lymph % (Auto) [place] % (Auto) Eos % (Auto) Baso % (Auto) Neut # (Auto) Lymph # (Auto) [place] # (Auto) Eos # (Auto) Baso # (Auto) Immature Gran % Nucleated RBC % Immature Gran # Nucleated RBCs # Sodium Potassium Chloride Carbon Dioxide Anion Gap BUN Creatinine GFR Calculation BUN/Creatinine Ratio Glucose POC Glucose 391 H Calculated Osmolality Calcium Total Creatine Kinase Troponin I Urine Color Urine Appearance Urine pH Ur Specific [place] Urine Protein Urine Glucose (UA) Urine Ketones Urine Blood Urine Nitrate Urine Bilirubin Urine Urobilinogen Urine Leukocytes Urine RBC Urine WBC Ur Squamous Epith Cells Ur Culture Indicated? Laboratory Tests 12/06/16 15:22 POC Glucose 89 - EKG EKG results: interpreted by ERMD, WNL, sinus rhythm, no acute changes - Diagnostic Findings Procedure: Chest x-ray: report reviewed by me, image reviewed by me (No abnormality seen.) Disposition Clinical Impression: Chest pain, Hyperglycemia Case discussed with: patient Disposition: Still a Patient Condition: Stable
[2016-12-06] MEDS ORDERED: NITROGLYCERIN 2% OINT 1 INCH/GM PACK TOP ONE (16:42)
[2016-12-06] MEDS ORDERED: ENOXAPARIN 60 MG/0.6 ML SYRINGE ONE (16:42)
[2016-12-06] MEDS ORDERED: ASPIRIN 325 MG TABLET ONE (16:42)
--- NOTE | 2016-12-06 20:15 | Cardiology History & Physical ---
Assessment and Plan - Time spent with patient Time spent with patient: Greater than 30 minutes (1) Chest pain Status: Acute Assessment and plan: Differential diagnosis of chest pain would include GI, muscle skeletal, or, less likely, CAD. The fact that it is different from her pain when she had a stent and so far enzymes are negative make it less likely this is CAD Plan/recommendation: Nitropaste now and every 6 hours Lovenox 1 milligram per kilo subcu twice daily Aspirin 1 daily Continue the Brilinta or Plavix Treat for GI cause the pain-proton pump inhibitor Treat for muscle skeletal cause pain-tramadol, Tylenol, gabapentin If the workup is negative, she will be discharged tomorrow to have an outpatient treadmill/Cardiolite with Dr. Baljeet Gilmore at some point. Treat her diabetes asthe best We will start on sliding scale insulin, Humulin Check magnesium Cardiac isoenzymes every 6 hours 4 EKG every morning times 3 Current Visit: Yes (2) Hypokalemia Status: Acute Current Visit: Yes (3) Hyperglycemia Status: Acute Current Visit: Yes (4) Diabetes mellitus type 2 in obese Status: Acute Current Visit: No (5) Noncompliance with medications Status: Acute Current Visit: No (6) Coronary artery disease Status: Chronic Current Visit: No (7) Dyslipidemia Status: Chronic Current Visit: No (8) Essential hypertension Status: Chronic Current Visit: No (9) Family history of premature CAD Status: Chronic Current Visit: No (10) Sleep disorder Status: Chronic Current Visit: No History of Present Illness Chief complaint: "My chest hurts" History of present illness: Ms. Pierre is a 46 year old female PCP: Dr. Juan Antonio Perera Sales Stock Associate: Dr. Baljeet Gilmore The patient is 46. She had a catheter stent by Dr. Lr in June 2016. Is when she is having chest pain but went to her neck and jaw. 99% proximal LAD. Went well. She then, in mid September had another episode. I catheter at that time. The stent was wide open. This time, she was noted to have a high glucose level. Dr. Perera gave her prescription for Humulin. She went to [facility]. They did not have until Wednesday. Thus, sugar remained elevated. She was told to come here for evaluation. Later she began having chest pain, while on the way to the emergency room. There is intermittent chest pain or suppressing. It did not radiate to her neck arms or back. It was different from her pain when she had her stent. It lasted for some hours ago. No associated shortness breath or nausea. She had been have some diaphoresis. No dysphagia odynophagia or GE reflux. In the past he has a GE reflux She has had some nausea vomiting. Past medical history Prior coronary stent?s Diabetes Hypertension Hypercholesterolemia Family history coronary disease Home Medications Medication Instructions Recorded Confirmed Type Nitroglycerin Sl Tab [Nitrostat] 0.4 mg SL Q5M PRN #1 bottle 07/17/16 12/06/16 Rx Rosuvastatin [Crestor] 20 mg PO BEDTIME #30 tablet 07/17/16 12/06/16 Rx Aspirin [Ecotrin] 81 mg PO DAILY 10/19/16 12/06/16 History Clopidogrel [Plavix] 75 mg PO DAILY 10/19/16 12/06/16 History Lisinopril/Hctz 20-12.5 [Prinzide 1 tablet PO DAILY 10/19/16 12/06/16 History 20-12.5] Metformin HCl 1,000 mg PO BID 12/06/16 12/06/16 History Allergies Allergy/AdvReac Type Severity Reaction Status Date / Time No Known Allergies Allergy Verified 12/06/16 18:38 12 point system: reviewed and no additional remarkable complaints except as stated (A 12 point review of systems is negative except for as mentioned in HPI. ) Medical,Surgical,& Family Hx - Medical History Cardio: History of: CAD, Hypertension No history of: Cardiac Dysrhythmia, Cerebrovascular Disease Psychological: History of: Anxiety Disorders Endocrine: History of: Diabetes Mellitus (NIDDM), Dyslipidemia Gastrointestinal: History of: GERD Musculoskeletal: History of: Degenerative Disk Disease - Surgical History Cardiac Surgeries: Sugical HX of: Cardiac Catheterization (x4) HEENT Surgeries: Surgical HX of: Tonsilectomy & Adenoidectomy Abdominal Surgeries: Surgical HX of: Appendectomy, Cholecystectomy Reproductive Surgeries: Surgical HX of;: Hysterectomy - Family History Family History: Reports;: Family Diabetes, Family Heart Disease, Family Hypertension - Social History Smoking Status: Smoker, status unknown Frequency of Alcohol Use: None Type of Drug Use: None Functional capacity: independent ambulation Cardiology Physical Exam - Constitutional Vitals: Vital Signs Temp Pulse Resp BP Pulse Ox 98.5 F 69 18 116/81 99 06/11/17 18:31 12/06/16 18:31 12/06/16 18:31 12/06/16 18:31 12/06/16 18:31 Intake and Output 12/06/16 12/06/16 12/06/16 07:59 15:59 23:59 Intake Total 1000 / 1000 Balance 1000 / 1000 Intake: IV 1000 / 1000 Ns 1,000 ml @ 999 mls/hr 1000 / 1000 IV 1X ED BOLUS STA Rx#: [id number] Other: Weight 72.121 kg 72.121 kg Patient Weight 12/06/16 23:59 Weight 72.121 kg Exam: HEENT: Pupils equal, reactive to light and accommodation Neck: NoJVD or bruit Lungs clear to auscultation Heart: Regular rhythm rate with normal S1 and S2. Apical S4 Abdomen: No hepatosplenomegaly Spine/extremities: No clubbing, cyanosis, or edema Neuro: Nonfocal Psych: No depression or anxiety No chest wall tenderness Result/EKG - Labs CBC & BMP: 12/06/16 13:08 12/06/16 13:08 Lab Results: I have reviewed the past 24 hour labs Labs: Laboratory Results - last 24 hr 12/06/16 12/06/16 12/06/16 13:08 13:08 13:08 WBC 4.9 RBC 4.68 Hgb 13.3 Hct 38.4 MCV 82.1 L MCH 28 MCHC 34.6 RDW 12.9 Plt Count 246 MPV 10.1 Neut % (Auto) 59.7 Lymph % (Auto) 29.8 [place] % (Auto) 6.9 Eos % (Auto) 2.6 Baso % (Auto) 0.8 Neut # (Auto) 3.0 Lymph # (Auto) 1.5 [place] # (Auto) 0.3 Eos # (Auto) 0.1 Baso # (Auto) 0.0 Immature Gran % 0.2 Nucleated RBC % 0.0 Immature Gran # 0.01 Nucleated RBCs # 0.00 Sodium 135 L Potassium 3.4 L Chloride 101 Carbon Dioxide 23 Anion Gap 14.4 BUN 5 L Creatinine 1.10 H GFR Calculation 62 BUN/Creatinine Ratio 4.00 L Glucose 401 H POC Glucose Calculated Osmolality 283.1 Calcium 8.7 Total Creatine Kinase 54 Troponin I < 0.015 Urine Color Straw Urine Appearance Clear Urine pH 5.0 Ur Specific [place] 1.014 Urine Protein Negative Urine Glucose (UA) >=500 Urine Ketones Negative Urine Blood Negative Urine Nitrate Negative Urine Bilirubin Negative Urine Urobilinogen < 2.0 H Urine Leukocytes Negative Urine RBC <1 Urine WBC <1 Ur Squamous Epith Cells Occasional Ur Culture Indicated? Not indicated 12/06/16 12/06/16 12/06/16 13:10 15:22 16:10 WBC RBC Hgb Hct MCV MCH MCHC RDW Plt Count MPV Neut % (Auto) Lymph % (Auto) [place] % (Auto) Eos % (Auto) Baso % (Auto) Neut # (Auto) Lymph # (Auto) [place] # (Auto) Eos # (Auto) Baso # (Auto) Immature Gran % Nucleated RBC % Immature Gran # Nucleated RBCs # Sodium Potassium Chloride Carbon Dioxide Anion Gap BUN Creatinine GFR Calculation BUN/Creatinine Ratio Glucose POC Glucose 391 H 89 Calculated Osmolality Calcium Total Creatine Kinase Troponin I < 0.015 Urine Color Urine Appearance Urine pH Ur Specific [place] Urine Protein Urine Glucose (UA) Urine Ketones Urine Blood Urine Nitrate Urine Bilirubin Urine Urobilinogen Urine Leukocytes Urine RBC Urine WBC Ur Squamous Epith Cells Ur Culture Indicated? - EKG EKG results: interpreted by me
[2016-12-06] MEDS ORDERED: DEXTROSE 50% 25 GM/50 ML VIAL IV PRN (20:22)
[2016-12-06] MEDS ORDERED: GLUCAGON 1 MG VIAL IM PRN (20:22)
[2016-12-06] MEDS ORDERED: POTASSIUM CHLORIDE 20 MEQ PACK PO ONE (20:25)
[2016-12-06] MEDS: metFORMIN 500 MG TABLET PO SCH (21:20)
[2016-12-06] MEDS: traMADol 50 MG TABLET PO SCH (21:21)
[2016-12-06] MEDS: GABAPENTIN 100 MG CAPSULE PO SCH (21:21)
[2016-12-06] MEDS: ACETAMINOPHEN 325 MG TABLET PO SCH (21:21)
[2016-12-06 21:57] LABS: Troponin I Only < 0.015 NG/ML (0.00-0.045)
[2016-12-06] MEDS: INSULIN REGULAR 100 UNIT/ML SUBCUT SCH (22:28)
[2016-12-07 05:29] LABS: Troponin I Only < 0.015 NG/ML (0.00-0.045)
--- NOTE | 2016-12-07 06:30 | EKG Report ---
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
--- NOTE | 2016-12-07 07:26 | EKG Report ---
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
[2016-12-07] MEDS ORDERED: NITROGLYCERIN 0.2 MG/HR PATCH TRANSDERM SCH (09:00)
[2016-12-07] MEDS ORDERED: CLOPIDOGREL 75 MG TABLET PO SCH (09:00)
[2016-12-07] MEDS ORDERED: LISINOPRIL/HCTZ 20-12.5 MG TABLET PO SCH (09:00)
[2016-12-07 09:02] LABS: Troponin I Only < 0.015 NG/ML (0.00-0.045)
[2016-12-07] MEDS: INSULIN REGULAR 100 UNIT/ML SUBCUT SCH ×2 (09:03→11:55)
[2016-12-07] MEDS: metFORMIN 500 MG TABLET PO SCH (09:04)
[2016-12-07] MEDS: GABAPENTIN 100 MG CAPSULE PO SCH (09:05)
[2016-12-07] MEDS: traMADol 50 MG TABLET PO SCH (09:06)
[2016-12-07] MEDS: ACETAMINOPHEN 325 MG TABLET PO SCH (09:06)
[2016-12-07 11:45] VITALS: BP 94/64
--- NOTE | 2016-12-07 13:44 | Discharge Summary ---
Mara Paulino April RN, am scribing for, and in the presence of, David Mantilla MD 13:40. Hospital Course - Hospital Course Hospital Course: PCP: Dr. Juan Antonio Perera Emergency Room Nurse: Dr. Baljeet Gilmore Ms. Pierre is a 46-year-old female with a history of CAD, tobacco abuse, diabetes, hypertension, and anxiety. She had PCI to proximal LAD lesion 2016. Repeat heart cath 10/20/2016 showed widely patent stents and no new lesions. She presented to the emergency department yesterday with complaints of chest pain. She denied any radiation and said it was different than what she had before she had her stent. EKG on admission showed sinus rhythm with heart rate of 77. Cardiac biomarkers were negative times 3. She no longer has any chest pain. I went over symptoms with her and she said she had nausea and fever at the time of her chest discomfort and "glucose in the 700s". Today she is seen resting in bed no acute distress. She denies any further chest pain or shortness of breath. EKG done this morning showed sinus bradycardia with heart rate of 52. Vital signs been stable. It is she has reached maximum benefit from hospitalization and will be discharged today. Will resume all of her home medications. - Time spent with patient Time with patient DS: Greater than 30 minutes Diagnosis - Discharge Diagnosis (1) Chest pain Status: Resolved (2) Coronary artery disease Status: Chronic (3) Diabetes mellitus Status: Chronic (4) Dyslipidemia Status: Chronic (5) Essential hypertension Status: Chronic Specialty Discharge - Follow Up or Referrals Follow up with: Mtathew Gilmore MD [Physician] - 1 Week Discharge Plan - Discharge Data Disposition: Disch To Home/Self Care Condition at Discharge: Stable Discharge Diet: diabetic diet Activity: resume usual activities as tolerated Hygiene: no restrictions Weight Bearing at Discharge: weight bear as tolerated Driving: no restrictions Contact your physician if you experience:: fever over 101, Difficulty voiding, Redness or swelling, Nausea/Vomiting, Shortness of breath, Bleeding, pain uncontrolled by pain medications - Discharge Medications No Action Lisinopril/Hctz 20-12.5 [Prinzide 20-12.5] 1 tablet PO DAILY Aspirin [Ecotrin] 81 mg PO DAILY Nitroglycerin Sl Tab [Nitrostat] 0.4 mg SL Q5M PRN #1 bottle PRN Reason: Chest Pain Rosuvastatin [Crestor] 20 mg PO BEDTIME #30 tablet Clopidogrel [Plavix] 75 mg PO DAILY Metformin HCl 1,000 mg PO BID - Follow Up or Referral - Forms/Instructions Exam - Constitutional Vitals: Period Temp Pulse Resp BP Sys/[place] Pulse Ox Last 24 Hr 96.8 F-98.5 F 50-80 16-20 90-116/58-86 90-100 General appearance: normal weight, no acute distress - Head Head exam: Absent: abrasion, hematoma - Eye Eye exam: Absent: periorbital swelling, laceration to eyelids - Respiratory Respiratory exam: Present: clear to auscultation bilaterally. Absent: accessory muscle use, chest wall tenderness - Cardiovascular Cardiovascular exam: Present: bradycardia, regular rate and rhythm - GI/Abdominal GI/Abdominal exam: Present: normal bowel sounds, soft. Absent: distended, tenderness - Extremities Exam Extremities exam: Absent: edema - Neurological Exam Neurological exam: Present: alert, oriented X3 - Psychiatric Psychiatric exam: Present: normal affect, normal mood - Skin Skin exam: Present: warm, dry Discharge Results Procedures and tests throughout hospitalization: Pending Orders 12/07/16 14:30 Troponin,CKMB & Ck Total Q6H Labs on day of discharge: Labs from last 24 hours 12/07/16 12/07/16 12/07/16 08:18 07:03 03:38 WBC RBC Hgb Hct MCV MCH MCHC RDW Plt Count MPV Neut % (Auto) Lymph % (Auto) [place] % (Auto) Eos % (Auto) Baso % (Auto) Neut # (Auto) Lymph # (Auto) [place] # (Auto) Eos # (Auto) Baso # (Auto) Immature Gran % Nucleated RBC % Immature Gran # Nucleated RBCs # Sodium Potassium Chloride Carbon Dioxide Anion Gap BUN Creatinine GFR Calculation BUN/Creatinine Ratio Glucose POC Glucose 180 H Calculated Osmolality Calcium Magnesium Total Creatine Kinase 38 37 D CK-MB (CK-2) < 1.0 < 1.0 Troponin I < 0.015 < 0.015 Urine Color Urine Appearance Urine pH Ur Specific [place] Urine Protein Urine Glucose (UA) Urine Ketones Urine Blood Urine Nitrate Urine Bilirubin Urine Urobilinogen Urine Leukocytes Urine RBC Urine WBC Ur Squamous Epith Cells Ur Culture Indicated? 12/06/16 12/06/16 12/06/16 21:00 21:00 20:32 WBC RBC Hgb Hct MCV MCH MCHC RDW Plt Count MPV Neut % (Auto) Lymph % (Auto) [place] % (Auto) Eos % (Auto) Baso % (Auto) Neut # (Auto) Lymph # (Auto) [place] # (Auto) Eos # (Auto) Baso # (Auto) Immature Gran % Nucleated RBC % Immature Gran # Nucleated RBCs # Sodium Potassium Chloride Carbon Dioxide Anion Gap BUN Creatinine GFR Calculation BUN/Creatinine Ratio Glucose POC Glucose 254 H Calculated Osmolality Calcium Magnesium 1.9 Total Creatine Kinase 109 D CK-MB (CK-2) < 1.0 Troponin I < 0.015 Urine Color Urine Appearance Urine pH Ur Specific [place] Urine Protein Urine Glucose (UA) Urine Ketones Urine Blood Urine Nitrate Urine Bilirubin Urine Urobilinogen Urine Leukocytes Urine RBC Urine WBC Ur Squamous Epith Cells Ur Culture Indicated? 12/06/16 12/06/16 12/06/16 18:34 16:10 15:22 WBC RBC Hgb Hct MCV MCH MCHC RDW Plt Count MPV Neut % (Auto) Lymph % (Auto) [place] % (Auto) Eos % (Auto) Baso % (Auto) Neut # (Auto) Lymph # (Auto) [place] # (Auto) Eos # (Auto) Baso # (Auto) Immature Gran % Nucleated RBC % Immature Gran # Nucleated RBCs # Sodium Potassium Chloride Carbon Dioxide Anion Gap BUN Creatinine GFR Calculation BUN/Creatinine Ratio Glucose POC Glucose 148 H 89 Calculated Osmolality Calcium Magnesium Total Creatine Kinase CK-MB (CK-2) Troponin I < 0.015 Urine Color Urine Appearance Urine pH Ur Specific [place] Urine Protein Urine Glucose (UA) Urine Ketones Urine Blood Urine Nitrate Urine Bilirubin Urine Urobilinogen Urine Leukocytes Urine RBC Urine WBC Ur Squamous Epith Cells Ur Culture Indicated? 12/06/16 12/06/16 12/06/16 13:10 13:08 13:08 WBC RBC Hgb Hct MCV MCH MCHC RDW Plt Count MPV Neut % (Auto) Lymph % (Auto) [place] % (Auto) Eos % (Auto) Baso % (Auto) Neut # (Auto) Lymph # (Auto) [place] # (Auto) Eos # (Auto) Baso # (Auto) Immature Gran % Nucleated RBC % Immature Gran # Nucleated RBCs # Sodium 135 L Potassium 3.4 L Chloride 101 Carbon Dioxide 23 Anion Gap 14.4 BUN 5 L Creatinine 1.10 H GFR Calculation 62 BUN/Creatinine Ratio 4.00 L Glucose 401 H POC Glucose 391 H Calculated Osmolality 283.1 Calcium 8.7 Magnesium Total Creatine Kinase 54 CK-MB (CK-2) Troponin I < 0.015 Urine Color Straw Urine Appearance Clear Urine pH 5.0 Ur Specific [place] 1.014 Urine Protein Negative Urine Glucose (UA) >=500 Urine Ketones Negative Urine Blood Negative Urine Nitrate Negative Urine Bilirubin Negative Urine Urobilinogen < 2.0 H Urine Leukocytes Negative Urine RBC <1 Urine WBC <1 Ur Squamous Epith Cells Occasional Ur Culture Indicated? Not indicated 12/06/16 13:08 WBC 4.9 RBC 4.68 Hgb 13.3 Hct 38.4 MCV 82.1 L MCH 28 MCHC 34.6 RDW 12.9 Plt Count 246 MPV 10.1 Neut % (Auto) 59.7 Lymph % (Auto) 29.8 [place] % (Auto) 6.9 Eos % (Auto) 2.6 Baso % (Auto) 0.8 Neut # (Auto) 3.0 Lymph # (Auto) 1.5 [place] # (Auto) 0.3 Eos # (Auto) 0.1 Baso # (Auto) 0.0 Immature Gran % 0.2 Nucleated RBC % 0.0 Immature Gran # 0.01 Nucleated RBCs # 0.00 Sodium Potassium Chloride Carbon Dioxide Anion Gap BUN Creatinine GFR Calculation BUN/Creatinine Ratio Glucose POC Glucose Calculated Osmolality Calcium Magnesium Total Creatine Kinase CK-MB (CK-2) Troponin I Urine Color Urine Appearance Urine pH Ur Specific [place] Urine Protein Urine Glucose (UA) Urine Ketones Urine Blood Urine Nitrate Urine Bilirubin Urine Urobilinogen Urine Leukocytes Urine RBC Urine WBC Ur Squamous Epith Cells Ur Culture Indicated? - Imaging and Cardiology Procedure: Chest x-ray: report reviewed by me DS: Provider Consults: 12/06/16 15:56 Consult to [facility], Educator [CONS] Routine Reason for Hand Violin Maker: Diabetes Education Expected date of discharge: 12/07/16 Jose Rafael Paulino Randall Scott, MD, personally performed the services described in this documentation, ascribed by Karlene Terry RN in my presence, and it is both accurate and complete [id number] .
[2016-12-07] MEDS ORDERED: ENOXAPARIN 40 MG/0.4 ML SYRINGE SUBCUT SCH (16:00)
== END 2016-12-07 14:51 | disposition home or self-care (01) ==
LOC: N.ED 12:46 → INTOOBSV 15:53 → N.EDINP 15:53 → N.TELES 18:41
PROVIDERS: ADMIT Internal Medicine Cardiovascular Disease; ATTEND Internal Medicine Cardiovascular Disease

== ENCOUNTER 2017-01-05 09:11 | Observation (INO) ==
[2017-01-05] MEDS ORDERED: NITROGLYCERIN 2% OINT 1 INCH/GM PACK TOP STA (09:30)
[2017-01-05] MEDS ORDERED: METOCLOPRAMIDE 10 MG/2 ML VIAL IV STA (09:30)
[2017-01-05] MEDS ORDERED: ASPIRIN 325 MG TABLET PO STA (09:30)
[2017-01-05] MEDS ORDERED: MORPHINE 2 MG/1 ML SYRINGE IV STA (09:30)
[2017-01-05] MEDS ORDERED: ONDANSETRON 4 MG/2 ML VIAL IV STA (09:30)
--- NOTE | 2017-01-05 09:34 | EKG Report ---
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
--- NOTE | 2017-01-05 09:35 | Emergency Department Note ---
Arrival - Arrival Chief Complaint: Chest Pain Stated Complaint: chest pain ED Nursing Triage Note: pt ambulatory to triage with c/o having cp. pt states onset today around 0800,. pt c/o having left sided cp with radiating pain down left arm and numbness. pt states also having n/v with pain into shoulder blades. Mode of Arrival: Ambulatory Limitations: No Limitations Source: Patient (Onset of symptoms 90 minutes ago) Time Seen by Provider: 01/05/17 09:30 - History of Present Illness HPI Narrative: This 46-year-old white female presents with onset of left-sided chest pain radiating down the left arm and to the back associated with shortness of breath , nausea, vomiting, and diaphoresis. The patient currently rates her pain at a maximum. She is status post stents in June and September of this year without history of associated myocardial infarct. Currently despite her symptoms she is medically stable Date of Last Menstrual Period: hyst Allergies/Adverse Reactions: Allergies Allergy/AdvReac Type Severity Reaction Status Date / Time No Known Allergies Allergy Verified 01/05/17 09:22 Home Medications: Home Medications Medication Instructions Recorded Confirmed Type Nitroglycerin Sl Tab [Nitrostat] 0.4 mg SL Q5M PRN #1 bottle 07/17/16 01/05/17 Rx Rosuvastatin [Crestor] 20 mg PO BEDTIME #30 tablet 07/17/16 01/05/17 Rx Aspirin [Ecotrin] 81 mg PO DAILY 10/19/16 01/05/17 History Clopidogrel [Plavix] 75 mg PO DAILY 10/19/16 01/05/17 History Lisinopril/Hctz 20-12.5 [Prinzide 1 tablet PO DAILY 10/19/16 01/05/17 History 20-12.5] Metformin HCl 1,000 mg PO BID 12/06/16 01/05/17 History Gemfibrozil [Lopid] 600 mg PO BID 01/05/17 01/05/17 History Insulin Degludec [Tresiba 16 unit SUBCUT QPM 01/05/17 01/05/17 History Flextouch U-100] Insulin Regular [HumuLIN R] See Protocol SUBCUT BID 01/05/17 01/05/17 History Review of System - Review of System 12 point system: reviewed and no additional remarkable complaints except as stated - Review of System Constitutional: Present: as per HPI Respiratory: Present: as per HPI Cardiovascular: Present: as per HPI Gastrointestinal: Present: as per HPI Medical,Surgical,& Family Hx - Medical History Cardio: History of: CAD, Hypertension No history of: Cardiac Dysrhythmia, Cerebrovascular Disease Psychological: History of: Anxiety Disorders Endocrine: History of: Diabetes Mellitus (NIDDM), Dyslipidemia Gastrointestinal: History of: GERD Musculoskeletal: History of: Degenerative Disk Disease - Surgical History Cardiac Surgeries: Sugical HX of: Cardiac Catheterization (x4) HEENT Surgeries: Surgical HX of: Tonsilectomy & Adenoidectomy Abdominal Surgeries: Surgical HX of: Appendectomy, Cholecystectomy Reproductive Surgeries: Surgical HX of;: Hysterectomy - Family History Family History: Reports;: Family Diabetes, Family Heart Disease, Family Hypertension - Social History Smoking Status: Former smoker Frequency of Alcohol Use: None Type of Drug Use: None Exam Physical Examination: GENERAL: Well developed, well nourished white female in no acute distress. HEENT: Normocephalic. No trauma. Moist mucous membranes. EOMI. PERRLA. ENT NML NECK: Supple. No adenopathy. CARDIAC: Regular. No murmurs. Heart rate 72 CHEST: Clear to auscultation. No respiratory distress. O2 sat 100% ABDOMEN: Soft. Nontender. Active bowel sounds. EXTREMITIES: No trauma. Normal ROM. No pedal edema. SKIN: No diaphoresis. No rash. NEURO: Alert. Neuro intact no focal deficits. Vital Signs: Vital Signs Temperature 97.2 F L 01/05/17 09:25 Pulse Rate 72 01/05/17 09:25 Respiratory Rate 18 01/05/17 09:38 Blood Pressure 109/76 01/05/17 09:25 O2 Sat by Pulse Oximetry 100 01/05/17 09:18 Course - Reevaluation(s) Reevaluation #1: Discussed with patient the need for further evaluation of her coronary system given her degree of discomfort - Consultations Consultation #1: Discussed with Dr. Dumont who will admit for further evaluation treatment. Results - Labs CBC & BMP: 01/05/17 09:39 01/05/17 09:39 Labs: I reviewed the lab and noted its gross normality excepting for bump in sugar - Impressions EKG: Sinus rhythm at 71 with normal NH interval and QRS duration. Diffuse low voltage with nonspecific ST changes. No acute injury pattern noted. - Diagnostic Findings Procedure: Chest x-ray: image reviewed by me, report reviewed by me (Normal chest)
[2017-01-05] MEDS ORDERED: NITROGLYCERIN 2% OINT 1 INCH/GM PACK TOP ONE (09:38)
[2017-01-05] MEDS ORDERED: ONDANSETRON 4 MG/2 ML VIAL ONE (09:38)
[2017-01-05] MEDS ORDERED: METOCLOPRAMIDE 10 MG/2 ML VIAL ONE (09:38)
[2017-01-05] MEDS ORDERED: MORPHINE 2 MG/1 ML SYRINGE ONE (09:39)
[2017-01-05] MEDS ORDERED: ASPIRIN 325 MG TABLET ONE (09:39)
[2017-01-05] MEDS ORDERED: ENOXAPARIN 100 MG/ML SYRINGE SUBCUT STA (09:42)
[2017-01-05 09:53] LABS: Basophils % 0.6 % (0.0-0.8); Eosinophils # 0.2 10*3/uL (0.0-0.87); Eosinophils % 4.5 % (0.00-10.9); Hemoglobin 12.5 GM/DL (12.0-16.0); Immature Granulocytes % 0.2 %; Immature Granulocytes Absolute 0.01 #; Lymphocytes # 1.6 10*3/uL (1.4-4.0); Lymphocytes % 30.8 % (21.3-54.2); Mean Corpuscular HGB Conc 33.8 GM/DL (32-36); Mean Corpuscular Hemoglobin 28 PG (27-34); Mean Corpuscular Volume 84.1 FL (87-102); Mean Platelet Volume 9.9 FL (9.6-12.0); Monocytes # 0.3 10*3/uL (0.11-0.8); Monocytes % 5.9 % (1.7-12.7); Platelet Count 246 T/CUMM (130-400); Red Cell Distribution Width 13.3 % (9.3-17.3); White Blood Count 5.1 T/CUMM (4-12)
[2017-01-05] MEDS ORDERED: ENOXAPARIN 100 MG/ML SYRINGE SUBCUT ONE (09:57)
--- NOTE | 2017-01-05 09:57 | XRay Report ---
Exam: XR chest 1V portable Indication: Chest pain Comparison study: 12/06/2016 radiograph Findings: The heart, mediastinum and bony structures are stable from prior. There is no focal consolidation, pneumothorax or pleural effusion identified. Impression: No acute cardiopulmonary process. No change from prior. PROCEDURE INTERPRETED AT [facility] DEPARTMENT OF RADIOLOGY Final Report Signed by: Apollo Carballo
[2017-01-05 10:05] LABS: PT Patient Result 10.6 SECS; Partial Thromboplastin Time 26.4 SECS (0-40)
[2017-01-05 10:22] LABS: Alanine Aminotransferase 25 U/L (13-56); Albumin 3.6 G/DL (3.4-5.0); Alkaline Phosphatase 93 U/L (45-117); Aspartate Amino Transferase 14 U/L (0-37); Blood Urea Nitrogen 11 MG/DL (7-18); Calcium 8.8 MG/DL (8.5-10.1); Glucose 241 MG/DL (74-106); Osmolality,Calculated 285.4 MOS/KG (273-304); Potassium 3.8 MMOL/L (3.5-5.1); Sodium 140 MMOL/L (136-145); Total Protein 6.9 G/DL (6.4-8.3); Troponin I Only < 0.015 NG/ML (0.00-0.045)
--- NOTE | 2017-01-05 12:07 | Cardiology History & Physical ---
<Bryanna Scruggs E - Last Filed: 01/05/17 11:44> Assessment and Plan - Time spent with patient Time spent with patient: Greater than 30 minutes Time spent discussing smoking cessation with patient: 3 to 10 minutes (1) Dyslipidemia Status: Chronic Assessment and plan: SEE PLAN OF CARE LISTED BELOW Current Visit: Yes (2) Essential hypertension Status: Chronic Assessment and plan: SEE PLAN OF CARE LISTED BELOW Current Visit: Yes (3) Nicotine addiction Status: Chronic Assessment and plan: SEE PLAN OF CARE LISTED BELOW Current Visit: Yes Qualifiers: Nicotine product type: cigarettes (4) Chest pain Status: Acute Assessment and plan: SEE PLAN OF CARE LISTED BELOW Current Visit: Yes (5) Coronary artery disease Status: Chronic Assessment and plan: SEE PLAN OF CARE LISTED BELOW Current Visit: Yes Qualifiers: Coronary Disease-Associated Artery/Lesion type: [place] artery [place] vs. 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 WALDRON Ms. Pierre, 46WF, last seen in cardiology clinic December 04, 2016. Risk factors include: Known coronary artery disease, hypertension, dyslipidemia, family history premature coronary artery disease, smoker. Patient underwent cardiac catheterization July 16, 2016 requiring PCI to proximal LAD. 40% proximal RCA stenosis noted, EF 50%. Patient has frequent and numerous hospitalizations for chest pain. She was here last month with chest pain, treated with PPI and musculoskeletal pain medications and was doing well until this morning. 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 She became short of breath, diaphoretic and nauseated with the discomfort. She rates the discomfort as a 9 on a scale of 1- 10. She states it was the most intense pressure and discomfort she has ever had. This lasted intermittently for total of about 30 minutes. She was given Aspirin, Lovenox and Morphine on arrival. The chest discomfort has improved at this point. She believes ambulating would re-create the discomfort. She is feeling weak at this point. She takes Lisinopril daily and took this morning. She has not missed Plavix or Aspirin. First set of cardiac biomarkers negative. EKG does not reveal NSTEMI. Patient will be kept NPO. I will further discuss with Dr. Dumont and await additional recommendations. Patient has received aspirin, therapeutic dose Lovenox, Plavix, LUNA inhibitor and lipid-lowering agent this morning. Blood pressure will not allow for introduction of nitroglycerin or beta blockade. ASSESSMENT/PLAN: 1. CHEST PAIN CONCERNING FOR ANGINA - Will keep NPO and discuss with Dr. Dumont. She has had repeat [facility] September 2016 which revealed patent stent to the LAD. Her symptoms are extremely alarming however. Could consider possible CTA chest versus stress testing versus heart catheterization. 2. KNOWN CAD - has received appropriate medications and continues to take cardiac meds at home appropriately per report. 3. HYPERTENSION - usually well controlled. 4. DYSLIPIDEMIA -continue lipid-lowering agent. Recent lipid profile therefore no need to repeat. 5. DIABETES - better controlled than prior hospitalization. 6. TOBACCOISM ->5 minutes was spent today discussing the merits of tobacco cessation. Home Medications Medication Instructions Recorded Confirmed Type Nitroglycerin Sl Tab [Nitrostat] 0.4 mg SL Q5M PRN #1 bottle 07/17/16 01/05/17 Rx Rosuvastatin [Crestor] 20 mg PO BEDTIME #30 tablet 07/17/16 01/05/17 Rx Aspirin [Ecotrin] 81 mg PO DAILY 10/19/16 01/05/17 History Clopidogrel [Plavix] 75 mg PO DAILY 10/19/16 01/05/17 History Lisinopril/Hctz 20-12.5 [Prinzide 1 tablet PO DAILY 10/19/16 01/05/17 History 20-12.5] Metformin HCl 1,000 mg PO BID 12/06/16 01/05/17 History Gemfibrozil [Lopid] 600 mg PO BID 01/05/17 01/05/17 History Insulin Degludec [Tresiba 16 unit SUBCUT QPM 01/05/17 01/05/17 History Flextouch U-100] Insulin Regular [HumuLIN R] See Protocol SUBCUT BID 01/05/17 01/05/17 History Acetaminophen Tab [Tylenol Tab] 325 mg PO BID #14 tablet 01/06/17 Rx Gabapentin Cap/Tab [Neurontin 100 mg PO TID #21 capsule 01/06/17 Rx Cap/Tab] Pantoprazole Tab [Protonix Tab] 40 mg PO BID #60 tablet 01/06/17 Rx traMADol TAB [Ultram] 50 mg PO BID #14 tablet 01/06/17 Rx Allergies Allergy/AdvReac Type Severity Reaction Status Date / Time No Known Allergies Allergy Verified 01/05/17 09:22 Review of systems: REVIEW OF SYSTEMS: - Constitutional Constitutional: Present: Fatigue. Absent: syncope, anorexia, night sweats - EENT Eyes: Absent: blurry vision, loss of vision, diplopia Ears: Absent: decreased hearing, ear pain, ear discharge - Cardiovascular Cardiovascular: Present: chest pain with exertion, chest pain at rest. Dyspnea on exertion. Dyspnea with the chest pain. Denies edema or palpitations. Respiratory: Respiratory: Present: LOPEZ, denies cough. Absent: wheezing, hemoptysis, change in phlegm color - Gastrointestinal Gastrointestinal: Present: Occasional constipation. Absent: Abdominal pain, hematemesis, hematochezia, melena, change in bowel habits - Genitourinary Genitourinary: Absent: difficulty urinating, dysuria, urinary hesitancy, flank pain - Musculoskeletal Musculoskeletal: Present: back pain Absent: joint swelling, muscle cramps, muscle weakness - Neurological Neurological: Present: normal gait without frequent falls. Absent: dizziness, hemiparesis - Psychiatric Psychiatric: Present: Anxiety. Absent: depression, difficulty concentrating - Endocrine Endocrine: Present: fatigue. Absent: cold intolerance, heat intolerance, polyuria, polyphagia, polydipsia - Hematologic/Lymphatic Hematologic/Lymphatic: Present: easy bruising. Absent: easy bleeding -Integumentary Integumentary: Absent: lesions, rashes, skin breakdown Medical,Surgical,& Family Hx - Medical History Cardio: History of: CAD, Hypertension No history of: Cardiac Dysrhythmia, Cerebrovascular Disease Psychological: History of: Anxiety Disorders Endocrine: History of: Diabetes Mellitus (NIDDM), Dyslipidemia Gastrointestinal: History of: GERD Musculoskeletal: History of: Degenerative Disk Disease - Surgical History Cardiac Surgeries: Sugical HX of: Cardiac Catheterization (x4) HEENT Surgeries: Surgical HX of: Tonsilectomy & Adenoidectomy Abdominal Surgeries: Surgical HX of: Appendectomy, Cholecystectomy Reproductive Surgeries: Surgical HX of;: Hysterectomy - Family History Family History: Reports;: Family Diabetes, Family Heart Disease, Family Hypertension - Social History Smoking Status: Current every day smoker Have you smoked in the last 12 months: Yes Time spent discussing smoking cessation with patient: 3 to 10 minutes Frequency of Alcohol Use: None Type of Drug Use: None Marital Status: Single Lives With:: Alone Functional capacity: independent ambulation Cardiology Physical Exam - Constitutional Vitals: Vital Signs Temp Pulse Resp BP Pulse Ox 97.2 F L 72 18 109/76 100 01/05/17 09:25 01/05/17 09:25 01/05/17 09:38 01/05/17 09:25 01/05/17 09:18 Intake and Output 01/04/17 01/05/17 01/05/17 23:59 07:59 15:59 Other: Weight 72.575 kg Patient Weight 01/05/17 23:59 Weight 72.575 kg Exam: General: [Appears well with no apparent distress.] [Pleasant and cooperative. ] [Appears comfortable.] HEENT: [PERRL, normocephalic, atraumatic. Mucous membranes moist. No jaundice noted. Conjunctiva moist and clear, sclerae anicteric] Neck: No JVD/HJR, no thyromegaly or lymphadenopathy noted. No carotid bruit appreciated Cardiac: [Regular rate and rhythm.] [No obvious murmur rub or gallop.] Lungs: [Clear to auscultation without accessory muscle use to assist the respiratory pattern.] Oxygen in use via nasal cannula Abdomen: Soft, bowel sounds normoactive. Nontender and nondistended. No abdominal bruit or thrill noted. No masses noted. Musculoskeletal: No fluid collection. Decreased range of motion is noted. Extremities: No clubbing, cyanosis noted. [ No edema noted.] Upper extremity pulses 2+. Lower extremity pulses 2+. Capillary refill less than 3 seconds. Skin: No unusual lesions or rashes. No skin breakdown appreciated. Neuro: Awake, alert and oriented 3. Moves all extremities well without hemiparesis or paralysis. No essential tremor is appreciated. Result/EKG - Labs CBC & BMP: 01/05/17 09:39 01/05/17 09:39 Lab Results: I have reviewed the past 24 hour labs Labs: Laboratory Results - last 24 hr 01/05/17 01/05/17 01/05/17 09:39 09:39 09:39 WBC 5.1 RBC 4.40 Hgb 12.5 Hct 37.0 MCV 84.1 L MCH 28 MCHC 33.8 RDW 13.3 Plt Count 246 MPV 9.9 Neut % (Auto) 58.0 Lymph % (Auto) 30.8 [place] % (Auto) 5.9 Eos % (Auto) 4.5 Baso % (Auto) 0.6 Neut # (Auto) 3.0 Lymph # (Auto) 1.6 [place] # (Auto) 0.3 Eos # (Auto) 0.2 Baso # (Auto) 0.0 Immature Gran % 0.2 Nucleated RBC % 0.0 Immature Gran # 0.01 Nucleated RBCs # 0.00 INR PT Patient/Control Mix Circ Anticoag PTT Sodium 140 Potassium 3.8 Chloride 105 Carbon Dioxide 25 Anion Gap 13.8 BUN 11 Creatinine 1.00 GFR Calculation 70 BUN/Creatinine Ratio 11.00 Glucose 241 H Calculated Osmolality 285.4 Calcium 8.8 Total Bilirubin 1.00 AST 14 ALT 25 Alkaline Phosphatase 93 Total Creatine Kinase 67 CK-MB (CK-2) < 1.0 Troponin I < 0.015 < 0.015 B-Natriuretic Peptide Total Protein 6.9 Albumin 3.6 Globulin 3.3 Albumin/Globulin Ratio 1.0 L 01/05/17 01/05/17 09:39 09:39 WBC RBC Hgb Hct MCV MCH MCHC RDW Plt Count MPV Neut % (Auto) Lymph % (Auto) [place] % (Auto) Eos % (Auto) Baso % (Auto) Neut # (Auto) Lymph # (Auto) [place] # (Auto) Eos # (Auto) Baso # (Auto) Immature Gran % Nucleated RBC % Immature Gran # Nucleated RBCs # INR 1.0 PT Patient/Control Mix 10.6 Circ Anticoag PTT 26.4 Sodium Potassium Chloride Carbon Dioxide Anion Gap BUN Creatinine GFR Calculation BUN/Creatinine Ratio Glucose Calculated Osmolality Calcium Total Bilirubin AST ALT Alkaline Phosphatase Total Creatine Kinase CK-MB (CK-2) Troponin I B-Natriuretic Peptide 28 Total Protein Albumin Globulin Albumin/Globulin Ratio - Diagnostic Findings Procedure: Chest x-ray: report reviewed by me - EKG EKG results: interpreted by tx EKG shows: sinus rhythm <Jamal Dumont - Last Filed: 01/06/17 14:12> History of Present Illness History of present illness: Ms. Pierre is a 46 year old female admitted for evaluation of chest discomfort with a history of stenting of her LAD. She has had numerous hospitalizations and admissions for chest pain since she has had her stent placed. She will be evaluated with cardiac catheterization and further recommendations will follow our findings. I have discussed in detail the particulars of this case and I have examined the patient and reviewed the patient's chart both current and old. I was directly involved in the patient's evaluation and management and I completely agree with Bryanna Scruggs NP regarding this patient's evaluation and treatment plan. Cardiology Physical Exam - Constitutional Vitals: Vital Signs Temp Pulse Resp BP Pulse Ox 98.9 F 57 L 18 109/72 100 01/06/17 12:00 01/06/17 12:00 01/06/17 12:00 01/06/17 12:00 01/06/17 12:00 Intake and Output 01/05/17 01/06/17 01/06/17 23:59 07:59 15:59 Intake Total 1240 / 1240 1000 / 1000 Output Total 1000 / 1000 Balance 1240 / 1240 0 / 0 Intake: IV 1000 / 1000 1000 / 1000 1/2Ns 1,000 ml @ 125 mls/ 1000 / 1000 1000 / 1000 hr IV .Q8H CECILIA Rx#: [id number] Oral 240 / 240 Output: Urine 1000 / 1000 Other: # Voids 0 Weight 72.575 kg Patient Weight 01/06/17 23:59 Weight 72.575 kg Result/EKG - Labs CBC & BMP: 01/06/17 03:53 01/06/17 03:53 Labs: Laboratory Results - last 24 hr 01/05/17 01/05/17 01/05/17 13:22 13:35 14:02 WBC RBC Hgb Hct MCV MCH MCHC RDW Plt Count MPV Neut % (Auto) Lymph % (Auto) [place] % (Auto) Eos % (Auto) Baso % (Auto) Neut # (Auto) Lymph # (Auto) [place] # (Auto) Eos # (Auto) Baso # (Auto) Immature Gran % Nucleated RBC % Immature Gran # Nucleated RBCs # Sodium Potassium Chloride Carbon Dioxide Anion Gap BUN Creatinine GFR Calculation BUN/Creatinine Ratio Glucose POC Glucose 143 H Calculated Osmolality Calcium Total Bilirubin AST ALT Alkaline Phosphatase Total Creatine Kinase 53 D CK-MB (CK-2) < 1.0 Troponin I < 0.015 Total Protein Albumin Globulin Albumin/Globulin Ratio Urine Color Yellow Urine Appearance Slightly hazy Urine pH 5.0 Ur Specific [place] 1.011 Urine Protein Negative Urine Glucose (UA) >=500 Urine Ketones Negative Urine Blood Negative Urine Nitrate Negative Urine Bilirubin Negative Urine Urobilinogen < 2.0 H Urine Leukocytes Small H Urine RBC 1 Urine WBC 6 Ur Squamous Epith Cells Occasional Urine Mucus Occasional Ur Culture Indicated? Results to follow 01/05/17 01/05/17 01/05/17 16:49 16:51 19:34 WBC RBC Hgb Hct MCV MCH MCHC RDW Plt Count MPV Neut % (Auto) Lymph % (Auto) [place] % (Auto) Eos % (Auto) Baso % (Auto) Neut # (Auto) Lymph # (Auto) [place] # (Auto) Eos # (Auto) Baso # (Auto) Immature Gran % Nucleated RBC % Immature Gran # Nucleated RBCs # Sodium Potassium Chloride Carbon Dioxide Anion Gap BUN Creatinine GFR Calculation BUN/Creatinine Ratio Glucose POC Glucose 86 238 H Calculated Osmolality Calcium Total Bilirubin AST ALT Alkaline Phosphatase Total Creatine Kinase 52 CK-MB (CK-2) < 1.0 Troponin I < 0.015 Total Protein Albumin Globulin Albumin/Globulin Ratio Urine Color Urine Appearance Urine pH Ur Specific [place] Urine Protein Urine Glucose (UA) Urine Ketones Urine Blood Urine Nitrate Urine Bilirubin Urine Urobilinogen Urine Leukocytes Urine RBC Urine WBC Ur Squamous Epith Cells Urine Mucus Ur Culture Indicated? 01/05/17 01/06/17 01/06/17 20:03 03:53 03:53 WBC 4.0 RBC 3.92 Hgb 11.0 L Hct 33.5 L MCV 85.5 L MCH 28 MCHC 32.8 RDW 13.3 Plt Count 217 MPV 10.3 Neut % (Auto) 43.9 Lymph % (Auto) 41.0 [place] % (Auto) 6.3 Eos % (Auto) 8.0 Baso % (Auto) 0.5 Neut # (Auto) 1.8 Lymph # (Auto) 1.6 [place] # (Auto) 0.3 Eos # (Auto) 0.3 Baso # (Auto) 0.0 Immature Gran % 0.3 Nucleated RBC % 0.0 Immature Gran # 0.01 Nucleated RBCs # 0.00 Sodium 142 Potassium 3.8 Chloride 109 H Carbon Dioxide 22 Anion Gap 14.8 BUN 9 Creatinine 0.70 GFR Calculation 108 BUN/Creatinine Ratio 12.00 Glucose 99 POC Glucose Calculated Osmolality 281.1 Calcium 8.4 L Total Bilirubin 1.00 AST 16 ALT 21 Alkaline Phosphatase 69 Total Creatine Kinase 46 CK-MB (CK-2) < 1.0 Troponin I < 0.015 Total Protein 5.7 L Albumin 3.1 L Globulin 2.6 Albumin/Globulin Ratio 1.1 Urine Color Urine Appearance Urine pH Ur Specific [place] Urine Protein Urine Glucose (UA) Urine Ketones Urine Blood Urine Nitrate Urine Bilirubin Urine Urobilinogen Urine Leukocytes Urine RBC Urine WBC Ur Squamous Epith Cells Urine Mucus Ur Culture Indicated? 01/06/17 01/06/17 08:06 11:53 WBC RBC Hgb Hct MCV MCH MCHC RDW Plt Count MPV Neut % (Auto) Lymph % (Auto) [place] % (Auto) Eos % (Auto) Baso % (Auto) Neut # (Auto) Lymph # (Auto) [place] # (Auto) Eos # (Auto) Baso # (Auto) Immature Gran % Nucleated RBC % Immature Gran # Nucleated RBCs # Sodium Potassium Chloride Carbon Dioxide Anion Gap BUN Creatinine GFR Calculation BUN/Creatinine Ratio Glucose POC Glucose 131 H 149 H Calculated Osmolality Calcium Total Bilirubin AST ALT Alkaline Phosphatase Total Creatine Kinase CK-MB (CK-2) Troponin I Total Protein Albumin Globulin Albumin/Globulin Ratio Urine Color Urine Appearance Urine pH Ur Specific [place] Urine Protein Urine Glucose (UA) Urine Ketones Urine Blood Urine Nitrate Urine Bilirubin Urine Urobilinogen Urine Leukocytes Urine RBC Urine WBC Ur Squamous Epith Cells Urine Mucus Ur Culture Indicated?
[2017-01-05] MEDS ORDERED: LACTULOSE 20 GM/30 ML UDCUP PO PRN (12:10)
[2017-01-05] MEDS ORDERED: MAGNESIUM SULF RIDER 2 GM in PREMIX 1 EACH IV PRN ×2 (12:10→12:13)
[2017-01-05] MEDS ORDERED: ACETAMINOPHEN 325 MG TABLET PO PRN (12:10)
[2017-01-05] MEDS ORDERED: ZALEPLON 5 MG CAPSULE PO PRN (12:10)
[2017-01-05] MEDS ORDERED: DOCUSATE SODIUM 100 MG CAPSULE PO PRN (12:10)
[2017-01-05] MEDS ORDERED: MAGNESIUM SULF RIDER 4 GM in PREMIX 1 EACH IV PRN (12:10)
[2017-01-05] MEDS ORDERED: diphenhydrAMINE CAP 25 MG CAPSULE PO ONE (12:13)
[2017-01-05] MEDS ORDERED: DIAZEPAM 5 MG TABLET PO ONE (12:13)
[2017-01-05] MEDS ORDERED: POTASSIUM CHLORIDE RIDER 10 MEQ in PREMIX 1 EACH IV PRN (12:13)
[2017-01-05] MEDS: SODIUM CHLORIDE 0.45% 1,000 ML IV SCH ×3 (14:18→21:11)
--- NOTE | 2017-01-05 14:18 | Event Note ---
Patient known coronary disease having prior LAD stent placed July 16, 2016. She had ejection fraction 50% at that time and a proximal 40% RCA stenosis. Patient had left heart catheterization carried out October 20, [address] Onofre charlton because of recurrent chest pain that was suggestive of recurrent disease. Based on his report she had a widely patent LAD stent and mild to moderate right coronary disease and ejection fraction 55%. The patient today is for cardiac catheterization because of continued chest pain. I discussed this procedure with the patient reviewing the indication procedure how would be carried out the risk. I discussed cardiac catheterization and percutaneous coronary intervention with the patient. I reviewed with her the indications for the procedure and the basis of how the procedure would be carried out. I also reviewed with her the risk of the procedure which include but not necessarily limited to access site bleeding, bruising, pain, swelling or vascular injury that may require emergency vascular surgery, blood transfusion, or thrombin injection. Also discussed the possibility of stroke, myocardial infarction, arrhythmia which may require electrocardioversion, and the possibility of dye reaction that would require medical therapy. Also discussed the possibility of coronary artery injury, ruptured, closure or perforation that may require emergency bypass surgery. We also discussed the possibility of from a major complication. Her questions were answered. They voice understanding and agree to proceed. We will carry this out from the right groin.
[2017-01-05] MEDS ORDERED: LIDOCAINE 1% 20 ML VIAL ONE ×2 (14:24→14:58)
--- NOTE | 2017-01-05 14:28 | History and Physical Update ---
Sedation H&P Update - History and Physical H&P was reviewed, the patient examined and there: are no changes in the patients condition since last H&P was completed. - Dictation Physical: refer to H&P completed by admitting physician - Physical Exam Mental Status: alert and oriented Heart: regular rate and rhythm Lung: clear to auscultation Abdomen: within normal limits Vitals: within normal limits History and Physical Changes: None - Sedation Plan for Sedation: moderate Patient Consent: Procedure disscussed with patient and patinet has consented., Risks and benefits were discussed with patient,including infection,, bleeding, injury to surrounding structures, seizure, temporary nerve, Patient understands and accepts potential risks/benefits and agrees to, proceed. ASA Class: III Airway Assessment: Class III: Soft palate, base of uvula visible
[2017-01-05] MEDS ORDERED: HYDROmorphone 2 MG/1 ML VIAL ONE (14:33)
[2017-01-05] MEDS ORDERED: MIDAZOLAM 2 MG/2 ML VIAL ONE (14:34)
[2017-01-05] MEDS ORDERED: fentaNYL 100 MCG/2 ML VIAL ONE (14:34)
[2017-01-05] MEDS ORDERED: DEXTROSE 50% 25 GM/50 ML VIAL IV PRN (15:02)
[2017-01-05] MEDS ORDERED: GLUCAGON 1 MG VIAL IM PRN (15:02)
--- NOTE | 2017-01-05 15:02 | Operative Note ---
Date of procedure: 01/05/17 Procedure Preformed: Left heart catheterization with LV gram. Surgeon / Physician: Messi Segundo Chronometer Repairer: Femi Wynn Post-op diagnosis: same Findings: Coronary arteries are patent with mild disease in the RCA and LAD stent widely patent. EF at 50%. Specimens: none sent Estimated blood loss: minimal Condition: stable Anesthesia: local, conscious sedation Disposition: floor
[2017-01-05 15:04] LABS: Troponin I Only < 0.015 NG/ML (0.00-0.045)
--- NOTE | 2017-01-05 15:17 | Cardiac Catheterization ---
Date of Procedure:: 01/05/17 Pre-op Diagnosis: Patient with chest pain of anginal quality with known coronary disease. Post-op diagnosis: same Procedure: LEFT HEART CATHERIZATION History: 46-year-old female who has risk factors for coronary disease. Previous stent in the LAD and now with recurrent anginal quality chest pain. Pre-Op diagnosis: Coronary disease with anginal quality chest pain. Postoperative diagnosis: Mild coronary disease but no obstructive disease present. LAD stent widely patent. Procedures: 1. Left heart catheterization. 2. Left ventricular angiogram. 3. Selective left and right coronary angiograms. 4. Right common femoral artery Angio-Seal hemostasis. Equipment: 6 British arterial sheath, 6 British diagnostic pigtail catheter, JL4 and JR4 diagnostic catheters. A 6 British Angio-Seal hemostatic device. Medications: Preoperative Benadryl and Valium given by mouth. Lidocaine 1% local anesthesia 10 mls administered by myself. Intraprocedure patient received Versed 2 mgs IVP, fentanyl 100 mcg IVP. Complications: None immediate. Contrast: Omnipaque 80 milliliters. Description of procedure: After informed consent the patient was given preoperative medications and brought to the catheterization laboratory where their right groin was prepped and draped in usual fashion. IV sedation was then obtained after which local anesthesia was administered at the right groin over the right common femoral artery. Using modified Seldinger technique the right common femoral artery was cannulated with 6 British arterial sheath placed. The pigtail catheter was then advanced through the sheath in a retrograde approach through the aorta to the aortic valve. The catheter was advanced through the aortic valve where left ventricular pressures were measured. The catheter was then pulled back into the aortic root and pressures measured. The catheter was then advanced across the aortic valve into the left ventricle where left ventricular angiogram was obtained in the right anterior oblique view. The pigtail catheter was then removed. The JL4 diagnostic coronary catheter was then advanced through the sheath in a retrograde approach and used to cannulate the left coronary artery of which angiograms were obtained in multiple projections. This catheter was then removed. The JR 4 diagnostic coronary catheter was then advanced retrograde through the aorta and used to cannulate the right coronary artery of which angiograms were obtained in multiple projections. Angiograms were then reviewed. The right coronary catheter was then removed. Right common femoral artery Angio-Seal hemostasis then obtained. There were no immediate complications. Hemodynamic data: LV 80/-4 , EDP 8 ; AO root 78/48 , mean 62 . Left ventricular angiogram: Left ventricle is normal size. Ejection fraction about 50-55 %. There is no specific segmental wall motion normality's. No significant mitral valve regurgitation is noted. Left main coronary artery angiogram: Left main coronary artery is a large caliber vessel that bifurcates LAD and circumflex arteries. He is without stenosis or other disease. Left anterior descending artery angiogram: LAD is a medium caliber vessel proximally and tapers to a much smaller vessel as it extends its midportion to the apex. Diagonal branches are small-caliber vessel. The proximal LAD stent is widely patent without stenosis. There is no other disease of the LAD noted. Circumflex artery angiogram: Circumflex artery is a medium to large size vessel proximally. The first obtuse marginal branch is a small caliber vessel. Second obtuse marginal branch is a relatively large long vessel that is very tortuous and cold covering a large area of myocardium. No gross stenosis or other lesions noted in the circumflex artery proper branches. Right coronary artery angiogram: RCA is a relatively small medium caliber vessel that is dominant. The PDA is a small caliber vessel as is the posterior lateral branches. AV node artery appears to have is takeoff from the distal RCA. There is some disease proximally that is eccentric and up to 40% stenosis. Right common femoral artery angiogram: This vessel seen by way of LV gram runoff. It is patent bifurcating LAD and circumflex arteries. Sheath is inserted in the common femoral artery. Successful Angio-Seal hemostasis. Impression: 1. Left ventricle is normal size with ejection fraction 50-55%. 2. LVEDP is normal at 8 mmHg. 3. No significant mitral valve regurgitation noted. 4. Aortic valve appears to be a tricuspid structure is without gradient. 5. Left main coronary is large and widely patent. 6. Circumflex artery is widely patent without stenosis or disease. 7. LAD proximal stent is widely patent in the vessels without any other disease. 8. Right coronary artery with active 40% proximal stenosis otherwise no disease present. 9. Right common femoral artery is patent with successful Angio-Seal hemostasis. Discussion: We will monitor the patient post procedure. Continue risk factor modification to prevent progressive disease. We though did not find disease today to account for her symptomatology. Implants: None Anesthesia: local, moderate conscious sedation Surgeon / Physician: Messi Segundo Educational Specialist: other (Femi Wynn RN) Estimated blood loss: minimal Specimens: none sent Condition: stable Disposition: floor - Medications / Follow-up
[2017-01-05 16:44] LABS: Apearance,Urine Slightly Hazy (Clear); Bilirubin,Urine Negative (Negative); Blood, Urine Negative (Negative); Glucose,Urine (UA) >=500 mg/dL (Negative); Ketones,Urine Negative (Negative); Mucus,Urine Occasional /LPF (Occasional); Nitrite,Urine Negative (Negative); Protein,Urine Negative; RBC,Urine 1 /HPF (0-4); Squamous Epithelial Cell,Urine Occasional /HPF (0-10); Urine Color Yellow (Yellow); Urine Specific Gravity 1.011 (1.001-1.035); Urine Urobilinogen < 2.0 EU/DL (0.2-1.0); WBC,Urine 6 /HPF (0-6)
[2017-01-05] MEDS: INSULIN REGULAR 100 UNIT/ML SUBCUT SCH ×2 (16:50→20:28)
[2017-01-05 17:58] LABS: Troponin I Only < 0.015 NG/ML (0.00-0.045)
[2017-01-05 20:52] LABS: Troponin I Only < 0.015 NG/ML (0.00-0.045)
[2017-01-06] MEDS: SODIUM CHLORIDE 0.45% 1,000 ML IV SCH ×3 (02:39→14:29)
[2017-01-06 04:45] LABS: Basophils % 0.5 % (0.0-0.8); Eosinophils # 0.3 10*3/uL (0.0-0.87); Hematocrit 33.5 VOL% (35.7-47.0); Immature Granulocytes % 0.3 %; Immature Granulocytes Absolute 0.01 #; Lymphocytes # 1.6 10*3/uL (1.4-4.0); Mean Corpuscular HGB Conc 32.8 GM/DL (32-36); Mean Corpuscular Hemoglobin 28 PG (27-34); Mean Corpuscular Volume 85.5 FL (87-102); Mean Platelet Volume 10.3 FL (9.6-12.0); Monocytes # 0.3 10*3/uL (0.11-0.8); Monocytes % 6.3 % (1.7-12.7); Neutrophils # 1.8 10*3/uL (1.4-7.4); Neutrophils % 43.9 % (38.7-73.9); Platelet Count 217 T/CUMM (130-400); Red Blood Count 3.92 MC/CUMM (3.8-5.5); Red Cell Distribution Width 13.3 % (9.3-17.3)
[2017-01-06 05:02] LABS: Albumin 3.1 G/DL (3.4-5.0); Calcium 8.4 MG/DL (8.5-10.1); Osmolality,Calculated 281.1 MOS/KG (273-304); Potassium 3.8 MMOL/L (3.5-5.1); Total Protein 5.7 G/DL (6.4-8.3)
[2017-01-06] MEDS: INSULIN REGULAR 100 UNIT/ML SUBCUT SCH ×2 (08:44→14:28)
[2017-01-06] MEDS ORDERED: PANTOPRAZOLE 40 MG TABLET PO SCH ×2 (09:00→21:00)
--- NOTE | 2017-01-06 12:10 | Discharge Summary ---
Hospital Course - Hospital Course Hospital Course: HOME CARE GIVER: DR. GILMORE PCP: DR. PERERA Ms. Pierre, 46WF, with history of known coronary artery disease, hypertension, dyslipidemia, family history premature coronary artery disease, smoker. Patient underwent cardiac catheterization July 16, 2016 requiring PCI to proximal LAD. 40% proximal RCA stenosis noted, EF 50%. Patient has frequent and numerous hospitalizations for chest pain. She was here November 2016 with chest pain, treated with PPI and musculoskeletal pain medications and was doing well until the morning of her admission. Patient was admitted January 05, 2017 for symptoms concerning of angina. The symptoms were the most "intense pressure and discomfort" she has ever had. She has been compliant with her aspirin and Plavix. Patient was scheduled for and underwent elective heart catheterization performed by Dr. Segundo with the following noted: Impression: 1. Left ventricle is normal size with ejection fraction 50-55%. 2. LVEDP is normal at 8 mmHg. 3. No significant mitral valve regurgitation noted. 4. Aortic valve appears to be a tricuspid structure is without gradient. 5. Left main coronary is large and widely patent. 6. Circumflex artery is widely patent without stenosis or disease. 7. LAD proximal stent is widely patent in the vessels without any other disease. 8. Right coronary artery with active 40% proximal stenosis otherwise no disease present. 9. Right common femoral artery is patent with successful Angio-Seal hemostasis. Overnight, she has done well. Chest pain has improved. She has been ambulating without difficulty. Right groin is soft, free of hematoma or bruit. Patient will be treated with continued PPI, musculoskeletal pain meds to include gabapentin, tramadol, acetaminophen for 1 week. She may return to work Wednesday, January 11, 2017. Greater than 5 minutes was spent discussing the merits of tobacco cessation. Patient missed her appointment with Dr. Perera this past Wednesday. We will arrange for her to follow-up with Dr. Perera in 1-2 weeks. She has concerns regarding worsening memory. Her grandmother had a history of Alzheimer's dementia and she is concerned she may be having early signs of Alzheimer's. Will defer to her primary care provider to workup accordingly. Patient is also being referred to Dr. Kwok for evaluation of noncardiac chest pain. She has seen Dr. Kwok in the past and we will arrange for follow-up in approximately 1-2 weeks as well. In the interim, will increase PPI to twice daily dosing. Having felt she is met maximal medical therapy, she is being discharged home in stable condition. Patient will be given a follow-up appointment with Dr. Gilmore in approximately 2-3 weeks. She will continue all of her preadmission medications including aspirin and Plavix. Blood pressure will not allow for introduction of a beta-federica. I have discussed in detail the particulars of this case and I have examined the patient and reviewed the patient's chart both current and old. I was directly involved in the patient's evaluation and management and I completely agree with Bryanna Scruggs NP regarding this patient's evaluation and treatment plan. - Time spent with patient Time with patient DS: Greater than 30 minutes Time spent discussing smoking cessation with patient: 3 to 10 minutes Diagnosis - Discharge Diagnosis (1) Dyslipidemia Status: Chronic (2) Essential hypertension Status: Chronic (3) Nicotine addiction Status: Chronic (4) Chest pain Status: Acute (5) Coronary artery disease Status: Chronic (6) Diabetes Status: Chronic Specialty Discharge - Follow Up or Referrals Follow up with: Cole Kwok MD [Physician] - (non-cardiac chest pain, history of hiatal hernia. 1-2 weeks left message with office) Juan Antonio Perera MD [Primary Care Provider] - 01/20/17 1:30 pm (2 weeks RE: memory loss) Matthew Gilmore MD [Physician] - 01/28/17 8:00 am (2-3 weeks) Discharge Plan - Discharge Data Disposition: Disch To Home/Self Care Condition at Discharge: Stable Discharge Diet: heart healthy Activity: other (Post cath expectations) Hygiene: no restrictions Weight Bearing at Discharge: other (Post cath expectations) Driving: other (Post cath expectations) Contact your physician if you experience:: fever over 101, Difficulty voiding, Redness or swelling, Nausea/Vomiting, Shortness of breath, Bleeding, pain uncontrolled by pain medications - Discharge Medications New [place]apentin Cap/Tab [Neurontin Cap/Tab] 100 mg PO TID #21 capsule traMADol TAB [Ultram] 50 mg PO BID #14 tablet Acetaminophen Tab [Tylenol Tab] 325 mg PO BID #14 tablet Pantoprazole Tab [Protonix Tab] 40 mg PO BID #60 tablet Continue Lisinopril/Hctz 20-12.5 [Prinzide 20-12.5] 1 tablet PO DAILY Aspirin [Ecotrin] 81 mg PO DAILY Gemfibrozil [Lopid] 600 mg PO BID Insulin Regular [HumuLIN R] See Protocol SUBCUT BID Nitroglycerin Sl Tab [Nitrostat] 0.4 mg SL Q5M PRN #1 bottle PRN Reason: Chest Pain Rosuvastatin [Crestor] 20 mg PO BEDTIME #30 tablet Clopidogrel [Plavix] 75 mg PO DAILY Metformin HCl 1,000 mg PO BID Insulin Degludec [Tresiba Flextouch U-100] 16 unit SUBCUT QPM - Follow Up or Referral Follow Up: Cole Kwok MD [Physician] - (non-cardiac chest pain, history of hiatal hernia. 1-2 weeks left message with office) Juan Antonio Perera MD [Primary Care Provider] - 01/20/17 1:30 pm (2 weeks RE: memory loss) Matthew Gilmore MD [Physician] - 01/28/17 8:00 am (2-3 weeks) - Forms/Instructions Instructions: Left Heart Catheterization (DC), Heart Healthy Diet (DC) Additional Discharge Instructions: Resume Metformin , January 07, 2017 Exam - Constitutional Vitals: Period Temp Pulse Resp BP Sys/Dorado Pulse Ox Last 24 Hr 97.2 F-98.9 F 42-93 16-20 80-109/42-72 95-100 Exam: General: [Appears well with no apparent distress.] [Pleasant and cooperative. ] [Appears comfortable.] HEENT: [PERRL, normocephalic, atraumatic. Mucous membranes moist. No jaundice noted. Conjunctiva moist and clear, sclerae anicteric] Neck: No JVD/HJR, no thyromegaly or lymphadenopathy noted. No carotid bruit appreciated Cardiac: [Regular rate and rhythm.] [No murmur rub or gallop.] Lungs: [Clear to auscultation without accessory muscle use to assist the respiratory pattern.] Not requiring oxygen Abdomen: Soft, bowel sounds normoactive. Nontender and nondistended. No abdominal bruit or thrill noted. No masses noted. Musculoskeletal: No fluid collection. Decreased range of motion is noted. Extremities: Right groin soft, free of hematoma or bruit. No clubbing, cyanosis noted. [ No edema noted.] Upper extremity pulses 2+. Lower extremity pulses 2+. Capillary refill less than 3 seconds. Skin: No unusual lesions or rashes. No skin breakdown appreciated. Neuro: Awake, alert and oriented 3. Moves all extremities well without hemiparesis or paralysis. No essential tremor is appreciated. Discharge Results Procedures and tests throughout hospitalization: Pending Orders 01/05/17 Urine Culture Routine Labs on day of discharge: Labs from last 24 hours 01/06/17 01/06/17 01/06/17 11:53 08:06 03:53 WBC RBC Hgb Hct MCV MCH MCHC RDW Plt Count MPV Neut % (Auto) Lymph % (Auto) Woods % (Auto) Eos % (Auto) Baso % (Auto) Neut # (Auto) Lymph # (Auto) Woods # (Auto) Eos # (Auto) Baso # (Auto) Immature Gran % Nucleated RBC % Immature Gran # Nucleated RBCs # Sodium 142 Potassium 3.8 Chloride 109 H Carbon Dioxide 22 Anion Gap 14.8 BUN 9 Creatinine 0.70 GFR Calculation 108 BUN/Creatinine Ratio 12.00 Glucose 99 POC Glucose 149 H 131 H Calculated Osmolality 281.1 Calcium 8.4 L Total Bilirubin 1.00 AST 16 ALT 21 Alkaline Phosphatase 69 Total Creatine Kinase CK-MB (CK-2) Troponin I Total Protein 5.7 L Albumin 3.1 L Globulin 2.6 Albumin/Globulin Ratio 1.1 Urine Color Urine Appearance Urine pH Ur Specific [place] Urine Protein Urine Glucose (UA) Urine Ketones Urine Blood Urine Nitrate Urine Bilirubin Urine Urobilinogen Urine Leukocytes Urine RBC Urine WBC Ur Squamous Epith Cells Urine Mucus Ur Culture Indicated? 01/06/17 01/05/17 01/05/17 03:53 20:03 19:34 WBC 4.0 RBC 3.92 Hgb 11.0 L Hct 33.5 L MCV 85.5 L MCH 28 MCHC 32.8 RDW 13.3 Plt Count 217 MPV 10.3 Neut % (Auto) 43.9 Lymph % (Auto) 41.0 Woods % (Auto) 6.3 Eos % (Auto) 8.0 Baso % (Auto) 0.5 Neut # (Auto) 1.8 Lymph # (Auto) 1.6 Woods # (Auto) 0.3 Eos # (Auto) 0.3 Baso # (Auto) 0.0 Immature Gran % 0.3 Nucleated RBC % 0.0 Immature Gran # 0.01 Nucleated RBCs # 0.00 Sodium Potassium Chloride Carbon Dioxide Anion Gap BUN Creatinine GFR Calculation BUN/Creatinine Ratio Glucose POC Glucose 238 H Calculated Osmolality Calcium Total Bilirubin AST ALT Alkaline Phosphatase Total Creatine Kinase 46 CK-MB (CK-2) < 1.0 Troponin I < 0.015 Total Protein Albumin Globulin Albumin/Globulin Ratio Urine Color Urine Appearance Urine pH Ur Specific [place] Urine Protein Urine Glucose (UA) Urine Ketones Urine Blood Urine Nitrate Urine Bilirubin Urine Urobilinogen Urine Leukocytes Urine RBC Urine WBC Ur Squamous Epith Cells Urine Mucus Ur Culture Indicated? 01/05/17 01/05/17 01/05/17 16:51 16:49 14:02 WBC RBC Hgb Hct MCV MCH MCHC RDW Plt Count MPV Neut % (Auto) Lymph % (Auto) Woods % (Auto) Eos % (Auto) Baso % (Auto) Neut # (Auto) Lymph # (Auto) Woods # (Auto) Eos # (Auto) Baso # (Auto) Immature Gran % Nucleated RBC % Immature Gran # Nucleated RBCs # Sodium Potassium Chloride Carbon Dioxide Anion Gap BUN Creatinine GFR Calculation BUN/Creatinine Ratio Glucose POC Glucose 86 Calculated Osmolality Calcium Total Bilirubin AST ALT Alkaline Phosphatase Total Creatine Kinase 52 53 D CK-MB (CK-2) < 1.0 < 1.0 Troponin I < 0.015 < 0.015 Total Protein Albumin Globulin Albumin/Globulin Ratio Urine Color Urine Appearance Urine pH Ur Specific [place] Urine Protein Urine Glucose (UA) Urine Ketones Urine Blood Urine Nitrate Urine Bilirubin Urine Urobilinogen Urine Leukocytes Urine RBC Urine WBC Ur Squamous Epith Cells Urine Mucus Ur Culture Indicated? 01/05/17 01/05/17 13:35 13:22 WBC RBC Hgb Hct MCV MCH MCHC RDW Plt Count MPV Neut % (Auto) Lymph % (Auto) Woods % (Auto) Eos % (Auto) Baso % (Auto) Neut # (Auto) Lymph # (Auto) Woods # (Auto) Eos # (Auto) Baso # (Auto) Immature Gran % Nucleated RBC % Immature Gran # Nucleated RBCs # Sodium Potassium Chloride Carbon Dioxide Anion Gap BUN Creatinine GFR Calculation BUN/Creatinine Ratio Glucose POC Glucose 143 H Calculated Osmolality Calcium Total Bilirubin AST ALT Alkaline Phosphatase Total Creatine Kinase CK-MB (CK-2) Troponin I Total Protein Albumin Globulin Albumin/Globulin Ratio Urine Color Yellow Urine Appearance Slightly hazy Urine pH 5.0 Ur Specific [place] 1.011 Urine Protein Negative Urine Glucose (UA) >=500 Urine Ketones Negative Urine Blood Negative Urine Nitrate Negative Urine Bilirubin Negative Urine Urobilinogen < 2.0 H Urine Leukocytes Small H Urine RBC 1 Urine WBC 6 Ur Squamous Epith Cells Occasional Urine Mucus Occasional Ur Culture Indicated? Results to follow Preliminary micro results at discharge 01/05/17 Unknown Urine Culture - Preliminary Urine,Clean Catch No Growth at 12 hours. - Imaging and Cardiology Cardiology Procedure: report reviewed by me Procedure: Chest x-ray: report reviewed by me DS: Provider Date of admission: 01/05/17 12:10 Primary care physician: Juan Antonio Perera MD Attending physician on admission: Jamal Dumont MD Consults: Dr. Segundo Discharging clinician: Bryanna Scruggs NP Expected date of discharge: 01/06/17
[2017-01-06 12:15] VITALS: BP 109/72
[2017-01-06] MEDS ORDERED: GABAPENTIN 100 MG CAPSULE PO SCH (15:00)
[2017-01-06] MEDS ORDERED: ACETAMINOPHEN 325 MG TABLET PO SCH (21:00)
[2017-01-06] MEDS ORDERED: traMADol 50 MG TABLET PO SCH (21:00)
== END 2017-01-06 15:29 | disposition home or self-care (01) ==
LOC: N.ED 09:11 → N.EDINP 09:11 → N.TELES 13:15
PROVIDERS: ADMIT Internal Medicine Interventional Cardiology; ATTEND Internal Medicine Interventional Cardiology
PROC: CLCCHCL (ICD-10-PCS; 2017-01-05 15:15)

== ENCOUNTER 2017-05-05 08:20 | Observation (INO) ==
[2017-05-05] MEDS ORDERED: NITROGLYCERIN SL 0.4 MG TABLET SL STA (08:56)
[2017-05-05] MEDS ORDERED: NITROGLYCERIN SL 0.4 MG TABLET SL ONE (09:00)
[2017-05-05 09:04] LABS: Basophils % 0.9 % (0.0-0.8); Eosinophils # 0.3 10*3/uL (0.0-0.87); Eosinophils % 6.4 % (0.00-10.9); Hemoglobin 13.4 GM/DL (12.0-16.0); Immature Granulocytes % 0.2 %; Immature Granulocytes Absolute 0.01 #; Lymphocytes # 1.5 10*3/uL (1.4-4.0); Lymphocytes % 35.1 % (21.3-54.2); Mean Corpuscular HGB Conc 34.4 GM/DL (32-36); Mean Corpuscular Hemoglobin 29 PG (27-34); Mean Corpuscular Volume 83.2 FL (87-102); Mean Platelet Volume 9.3 FL (9.6-12.0); Monocytes # 0.3 10*3/uL (0.11-0.8); Monocytes % 6.6 % (1.7-12.7); Neutrophils # 2.2 10*3/uL (1.4-7.4); Neutrophils % 50.8 % (38.7-73.9); Platelet Count 279 T/CUMM (130-400); Red Blood Count 4.69 MC/CUMM (3.8-5.5); Red Cell Distribution Width 13.1 % (9.3-17.3); White Blood Count 4.4 T/CUMM (4-12)
[2017-05-05 09:21] LABS: Alanine Aminotransferase 27 U/L (13-56); Albumin 3.9 G/DL (3.4-5.0); Alkaline Phosphatase 103 U/L (45-117); Aspartate Amino Transferase 16 U/L (0-37); Blood Urea Nitrogen 8 MG/DL (7-18); Calcium 8.8 MG/DL (8.5-10.1); Glucose 240 MG/DL (74-106); Magnesium 1.9 MG/DL (1.8-2.4); Osmolality,Calculated 278.8 MOS/KG (273-304); Potassium 4.1 MMOL/L (3.5-5.1); Sodium 137 MMOL/L (136-145); Troponin I Only < 0.015 NG/ML (0.00-0.045)
[2017-05-05] MEDS ORDERED: ALUM/MAG/SIMETH/LIDO VISC 1:1 30 ML BOTTLE PO STA (09:48)
[2017-05-05] MEDS ORDERED: ONDANSETRON 4 MG/2 ML VIAL IV STA (09:48)
[2017-05-05] MEDS ORDERED: ASPIRIN 325 MG TABLET PO STA (09:48)
[2017-05-05] MEDS ORDERED: MORPHINE 2 MG/1 ML SYRINGE IV STA (09:48)
[2017-05-05] MEDS ORDERED: ALUM/MAG/SIMETH/LIDO VISC 1:1 30 ML BOTTLE PO ONE (10:02)
[2017-05-05] MEDS ORDERED: ONDANSETRON 4 MG/2 ML VIAL ONE (10:02)
[2017-05-05] MEDS ORDERED: MORPHINE 2 MG/1 ML SYRINGE ONE (10:02)
[2017-05-05] MEDS ORDERED: ASPIRIN 325 MG TABLET ONE (10:02)
[2017-05-05] MEDS ORDERED: MAGNESIUM SULF RIDER 4 GM in PREMIX 1 EACH IV PRN ×2 (12:55)
[2017-05-05] MEDS ORDERED: NICOTINE 21 MG/24 HR PATCH TRANSDERM PRN (12:55)
[2017-05-05] MEDS ORDERED: BISACODYL 5 MG TABLET PO PRN (12:55)
[2017-05-05] MEDS ORDERED: POTASSIUM CHLORIDE 20 MEQ TABLET PO PRN (12:55)
[2017-05-05] MEDS ORDERED: MAGNESIUM SULF RIDER 2 GM in PREMIX 1 EACH IV PRN ×2 (12:55)
[2017-05-05] MEDS ORDERED: ZALEPLON 5 MG CAPSULE PO PRN (12:55)
[2017-05-05] MEDS ORDERED: DOCUSATE SODIUM 100 MG CAPSULE PO PRN (12:55)
[2017-05-05] MEDS ORDERED: ONDANSETRON 4 MG/2 ML VIAL IV PRN (12:55)
[2017-05-05] MEDS ORDERED: SODIUM CHLORIDE 0.9% 1,000 ML IV SCH (12:55)
[2017-05-05] MEDS ORDERED: NITROGLYCERIN SL 0.4 MG TABLET SL PRN (12:55)
[2017-05-05] MEDS ORDERED: MORPHINE 2 MG/1 ML SYRINGE IV PRN (12:55)
[2017-05-05] MEDS ORDERED: DEXTROSE 50% 25 GM/50 ML VIAL IV PRN (12:55)
[2017-05-05] MEDS ORDERED: ACETAMINOPHEN 325 MG TABLET PO PRN (12:55)
[2017-05-05] MEDS ORDERED: GLUCAGON 1 MG VIAL IM PRN (12:55)
[2017-05-05 13:38] LABS: Troponin I Only < 0.015 NG/ML (0.00-0.045)
[2017-05-05 14:09] LABS: Apearance,Urine Slightly Hazy (Clear); Bilirubin,Urine Negative (Negative); Blood, Urine Negative (Negative); Glucose,Urine (UA) 150 mg/dL (Negative); Ketones,Urine Negative (Negative); Mucus,Urine Occasional /LPF (Occasional); Nitrite,Urine Negative (Negative); Protein,Urine Negative; RBC,Urine <1 /HPF (0-4); Squamous Epithelial Cell,Urine Occasional /HPF (0-10); Urine Color Yellow (Yellow); Urine Urobilinogen < 2.0 EU/DL (0.2-1.0); WBC,Urine 6 /HPF (0-6)
[2017-05-05] MEDS: INSULIN REGULAR 100 UNIT/ML SUBCUT SCH ×4 (14:09→21:17)
[2017-05-05] MEDS: ACETAMINOPHEN 325 MG TABLET PO SCH ×2 (14:38→21:14)
[2017-05-05] MEDS: LISINOPRIL/HCTZ 20-12.5 MG TABLET PO SCH (14:38)
[2017-05-05] MEDS: CLOPIDOGREL 75 MG TABLET PO SCH (14:40)
[2017-05-05] MEDS: GEMFIBROZIL 600 MG TABLET PO SCH ×2 (14:40→21:15)
[2017-05-05] MEDS: ASPIRIN EC 81 MG TABLET PO SCH (14:40)
[2017-05-05] MEDS: GABAPENTIN 100 MG CAPSULE PO SCH ×2 (14:44→21:16)
[2017-05-05 16:53] LABS: Troponin I Only < 0.015 NG/ML (0.00-0.045)
[2017-05-05] MEDS ORDERED: INSULIN DEGLUDEC 16 UNIT SUBCUT SCH (19:00)
[2017-05-05 20:09] LABS: Troponin I Only < 0.015 NG/ML (0.00-0.045)
[2017-05-05] MEDS ORDERED: ROSUVASTATIN 10 MG TABLET PO SCH (21:00)
[2017-05-05] MEDS: traMADol 50 MG TABLET PO SCH (21:16)
[2017-05-05] MEDS: ENOXAPARIN 80 MG/0.8 ML SYRINGE SUBCUT SCH (21:16)
[2017-05-06 04:38] LABS: Basophils # 0.1 10*3/uL (0.0-0.2); Eosinophils # 0.5 10*3/uL (0.0-0.87); Hematocrit 35.3 VOL% (35.7-47.0); Hemoglobin 11.8 GM/DL (12.0-16.0); Immature Granulocytes % 0.2 %; Immature Granulocytes Absolute 0.01 #; Lymphocytes # 2.4 10*3/uL (1.4-4.0); Lymphocytes % 45.3 % (21.3-54.2); Mean Corpuscular HGB Conc 33.4 GM/DL (32-36); Mean Corpuscular Hemoglobin 28 PG (27-34); Mean Corpuscular Volume 84.2 FL (87-102); Mean Platelet Volume 9.8 FL (9.6-12.0); Monocytes # 0.4 10*3/uL (0.11-0.8); Monocytes % 7.1 % (1.7-12.7); Neutrophils % 37.4 % (38.7-73.9); Platelet Count 257 T/CUMM (130-400); Red Blood Count 4.19 MC/CUMM (3.8-5.5); Red Cell Distribution Width 13.4 % (9.3-17.3); White Blood Count 5.2 T/CUMM (4-12)
[2017-05-06 05:12] LABS: Albumin 3.2 G/DL (3.4-5.0); Bilirubin,Total 0.9 MG/DL (0.2-1.0); Calcium 8.9 MG/DL (8.5-10.1); Magnesium 1.9 MG/DL (1.8-2.4); Osmolality,Calculated 287.5 MOS/KG (273-304); Potassium 4.6 MMOL/L (3.5-5.1); Risk Ratio 8.81; Total Protein 5.9 G/DL (6.4-8.3); VLDL CHOLESTEROL 122.8 MG/DL
[2017-05-06 05:43] LABS: Eosinophils 11 % (0-10); Lymphocytes 30 % (20-55); Platelet Estimate Adequate; Segmented Neutrophils 49 % (50-85); Total Cells Counted 100
[2017-05-06 05:44] LABS: Giant Platelets Few; Hypochromasia 1+; Ovalocytes Slight
[2017-05-06] MEDS: INSULIN REGULAR 100 UNIT/ML SUBCUT SCH ×3 (08:15→12:57)
[2017-05-06] MEDS ORDERED: PANTOPRAZOLE 40 MG TABLET PO SCH (09:00)
[2017-05-06] MEDS ORDERED: NON-FORMULARY MEDICATION (Pantoprazole Sodium [Protonix] 40 MG) PO SCH (09:00)
[2017-05-06] MEDS ORDERED: REGADENOSON 0.4 MG/5 ML SYRINGE IV ONE (12:46)
[2017-05-06] MEDS: GEMFIBROZIL 600 MG TABLET PO SCH (12:58)
[2017-05-06] MEDS: traMADol 50 MG TABLET PO SCH (12:58)
[2017-05-06] MEDS: ACETAMINOPHEN 325 MG TABLET PO SCH (13:07)
[2017-05-06] MEDS: ENOXAPARIN 80 MG/0.8 ML SYRINGE SUBCUT SCH (13:07)
[2017-05-06] MEDS: ASPIRIN EC 81 MG TABLET PO SCH (13:07)
[2017-05-06] MEDS: CLOPIDOGREL 75 MG TABLET PO SCH (13:08)
[2017-05-06] MEDS: GABAPENTIN 100 MG CAPSULE PO SCH (13:08)
[2017-05-06] MEDS: LISINOPRIL/HCTZ 20-12.5 MG TABLET PO SCH (13:39)
[2017-05-06 16:02] VITALS: BP 110/69
== END 2017-05-06 16:45 | disposition home or self-care (01) ==
LOC: N.ED 08:20 → INTOOBSV 10:28 → N.EDINP 10:28 → N.TELEN 12:54
PROVIDERS: ADMIT Internal Medicine Cardiovascular Disease; ATTEND Internal Medicine Cardiovascular Disease

== ENCOUNTER 2017-06-05 10:09 | Observation (INO) ==
[2017-06-05] MEDS ORDERED: NITROGLYCERIN 2% OINT 1 INCH/GM PACK TOP STA (10:27)
[2017-06-05] MEDS ORDERED: ENOXAPARIN 100 MG/ML SYRINGE SUBCUT STA (10:27)
[2017-06-05] MEDS ORDERED: ASPIRIN 325 MG TABLET PO STA (10:27)
[2017-06-05] MEDS ORDERED: MORPHINE 2 MG/1 ML SYRINGE IV STA (10:27)
[2017-06-05] MEDS ORDERED: ONDANSETRON 4 MG/2 ML VIAL ONE (10:39)
[2017-06-05] MEDS ORDERED: NITROGLYCERIN 2% OINT 1 INCH/GM PACK TOP ONE (10:39)
[2017-06-05] MEDS ORDERED: ASPIRIN 325 MG TABLET ONE (10:40)
[2017-06-05] MEDS: NITROGLYCERIN SL 0.4 MG TABLET SL PRN ×4 (10:40→12:22)
[2017-06-05] MEDS ORDERED: MORPHINE 2 MG/1 ML SYRINGE ONE (10:40)
[2017-06-05] MEDS ORDERED: NITROGLYCERIN SL 0.4 MG TABLET SL ONE (10:40)
[2017-06-05] MEDS ORDERED: ENOXAPARIN 80 MG/0.8 ML SYRINGE SUBCUT ONE (10:55)
[2017-06-05 10:57] LABS: Eosinophils # 0.4 10*3/uL (0.0-0.87); Eosinophils % 8.5 % (0.00-10.9); Hematocrit 40.4 VOL% (35.7-47.0); Immature Granulocytes % 0.2 %; Immature Granulocytes Absolute 0.01 #; Lymphocytes # 1.6 10*3/uL (1.4-4.0); Mean Corpuscular HGB Conc 34.7 GM/DL (32-36); Mean Corpuscular Hemoglobin 29 PG (27-34); Mean Corpuscular Volume 82.1 FL (87-102); Mean Platelet Volume 9.8 FL (9.6-12.0); Monocytes # 0.3 10*3/uL (0.11-0.8); Neutrophils # 1.9 10*3/uL (1.4-7.4); Neutrophils % 45.3 % (38.7-73.9); Platelet Count 270 T/CUMM (130-400); Red Blood Count 4.92 MC/CUMM (3.8-5.5); Red Cell Distribution Width 12.5 % (9.3-17.3); White Blood Count 4.1 T/CUMM (4-12)
[2017-06-05] MEDS ORDERED: ONDANSETRON 4 MG/2 ML VIAL IV STA (10:58)
[2017-06-05 11:20] LABS: Calcium 9.1 MG/DL (8.5-10.1); Osmolality,Calculated 275.1 MOS/KG (273-304)
[2017-06-05] MEDS ORDERED: POTASSIUM CHLORIDE 20 MEQ TABLET PO PRN (12:27)
[2017-06-05] MEDS ORDERED: ONDANSETRON 4 MG/2 ML VIAL IV PRN (12:27)
[2017-06-05] MEDS ORDERED: MORPHINE 2 MG/1 ML SYRINGE IV PRN (12:27)
[2017-06-05] MEDS ORDERED: ZALEPLON 5 MG CAPSULE PO PRN (12:27)
[2017-06-05] MEDS ORDERED: MAGNESIUM SULF RIDER 4 GM in PREMIX 1 EACH IV PRN (12:27)
[2017-06-05] MEDS ORDERED: MAGNESIUM SULF RIDER 2 GM in PREMIX 1 EACH IV PRN (12:27)
[2017-06-05] MEDS: NITROGLYCERIN 2% OINT 1 INCH/GM PACK TOP SCH (17:22)
[2017-06-05] MEDS: SODIUM CHLORIDE 0.45% 1,000 ML IV SCH ×2 (17:57→21:29)
[2017-06-06] MEDS: NITROGLYCERIN 2% OINT 1 INCH/GM PACK TOP SCH ×4 (01:08→17:47)
[2017-06-06] MEDS: SODIUM CHLORIDE 0.45% 1,000 ML IV SCH ×3 (04:10→22:31)
[2017-06-06 05:25] LABS: Risk Ratio 8.28
[2017-06-06] MEDS: PANTOPRAZOLE 40 MG TABLET PO SCH (11:14)
[2017-06-06] MEDS: ENOXAPARIN 40 MG/0.4 ML SYRINGE SUBCUT SCH (11:14)
[2017-06-07] MEDS: NITROGLYCERIN 2% OINT 1 INCH/GM PACK TOP SCH ×3 (00:34→13:16)
[2017-06-07] MEDS: SODIUM CHLORIDE 0.45% 1,000 ML IV SCH ×2 (07:14→13:16)
[2017-06-07] MEDS ORDERED: OMEGA 3 ACID ETHYL ESTERS 1 GM CAPSULE PO SCH (10:00)
[2017-06-07] MEDS: PANTOPRAZOLE 40 MG TABLET PO SCH (10:19)
[2017-06-07] MEDS: ENOXAPARIN 40 MG/0.4 ML SYRINGE SUBCUT SCH (10:19)
[2017-06-07] MEDS ORDERED: amLODIPine 5 MG TABLET PO SCH (10:30)
[2017-06-07 11:55] VITALS: BP 95/65
== END 2017-06-07 15:23 | disposition home or self-care (01) ==
LOC: N.ED 10:09 → N.EDINP 10:09 → N.TELEN 16:24
PROVIDERS: ADMIT Internal Medicine Interventional Cardiology; ATTEND Internal Medicine Interventional Cardiology

== ENCOUNTER 2017-06-09 16:34 | Inpatient (IN) ==
[2017-06-09] MEDS ORDERED: SODIUM CHLORIDE 0.9% 500 ML IV STA (17:03)
[2017-06-09] MEDS ORDERED: ONDANSETRON 4 MG/2 ML VIAL IV PRN (17:03)
[2017-06-09] MEDS ORDERED: PANTOPRAZOLE 40 MG VIAL IV STA (17:03)
[2017-06-09] MEDS ORDERED: PANTOPRAZOLE 40 MG VIAL IV ONE (17:48)
[2017-06-09 17:55] LABS: Basophils % 0.5 % (0.0-0.8); Eosinophils # 0.3 10*3/uL (0.0-0.87); Eosinophils % 5.3 % (0.00-10.9); Hematocrit 41.7 VOL% (35.7-47.0); Hemoglobin 14.5 GM/DL (12.0-16.0); Immature Granulocytes % 0.2 %; Immature Granulocytes Absolute 0.01 #; Lymphocytes # 2.2 10*3/uL (1.4-4.0); Lymphocytes % 35.1 % (21.3-54.2); Mean Corpuscular HGB Conc 34.8 GM/DL (32-36); Mean Corpuscular Hemoglobin 28 PG (27-34); Mean Corpuscular Volume 81.6 FL (87-102); Monocytes # 0.5 10*3/uL (0.11-0.8); Monocytes % 7.2 % (1.7-12.7); Neutrophils # 3.3 10*3/uL (1.4-7.4); Neutrophils % 51.7 % (38.7-73.9); Platelet Count 316 T/CUMM (130-400); Red Blood Count 5.11 MC/CUMM (3.8-5.5); Red Cell Distribution Width 12.6 % (9.3-17.3); White Blood Count 6.4 T/CUMM (4-12)
[2017-06-09 18:04] LABS: PT Patient Result 10.2 SECS; Partial Thromboplastin Time 25.3 SECS (0-40)
[2017-06-09 18:30] LABS: Albumin 4.3 G/DL (3.4-5.0); Bilirubin,Total 1.1 MG/DL (0.2-1.0); Calcium 9.9 MG/DL (8.5-10.1); Osmolality,Calculated 278.2 MOS/KG (273-304); Potassium 3.9 MMOL/L (3.5-5.1); Total Protein 7.7 G/DL (6.4-8.3)
[2017-06-09] MEDS ORDERED: NICOTINE 21 MG/24 HR PATCH TRANSDERM PRN (18:57)
[2017-06-09] MEDS ORDERED: ACETAMINOPHEN 325 MG TABLET PO PRN (18:57)
[2017-06-09 22:22] LABS: Hematocrit 37.2 VOL% (35.7-47.0)
[2017-06-10] MEDS: SODIUM CHLORIDE 0.9% 1,000 ML IV SCH ×4 (07:12→21:32)
[2017-06-10 07:31] LABS: Basophils # 0.1 10*3/uL (0.0-0.2); Basophils % 0.9 % (0.0-0.8); Eosinophils # 0.5 10*3/uL (0.0-0.87); Eosinophils % 9.6 % (0.00-10.9); Hematocrit 40.9 VOL% (35.7-47.0); Hemoglobin 13.8 GM/DL (12.0-16.0); Immature Granulocytes % 0.2 %; Immature Granulocytes Absolute 0.01 #; Lymphocytes # 1.8 10*3/uL (1.4-4.0); Lymphocytes % 34.4 % (21.3-54.2); Mean Corpuscular HGB Conc 33.7 GM/DL (32-36); Mean Corpuscular Hemoglobin 28 PG (27-34); Mean Corpuscular Volume 83.1 FL (87-102); Monocytes # 0.4 10*3/uL (0.11-0.8); Monocytes % 7.9 % (1.7-12.7); Neutrophils # 2.5 10*3/uL (1.4-7.4); Platelet Count 273 T/CUMM (130-400); Red Blood Count 4.92 MC/CUMM (3.8-5.5); Red Cell Distribution Width 12.6 % (9.3-17.3); White Blood Count 5.3 T/CUMM (4-12)
[2017-06-10 07:58] LABS: Calcium 9.2 MG/DL (8.5-10.1); Osmolality,Calculated 281.7 MOS/KG (273-304)
[2017-06-10] MEDS: PANTOPRAZOLE 40 MG TABLET PO SCH (09:27)
[2017-06-10] MEDS: BISACODYL 5 MG TABLET PO SCH ×3 (09:27→23:48)
[2017-06-10 12:34] LABS: Hematocrit 41.8 VOL% (35.7-47.0); Hemoglobin 13.9 GM/DL (12.0-16.0)
[2017-06-10] MEDS ORDERED: POLYETHYLENE GLYCOL POWDER 255 GM BOTTLE PO ONE ×2 (13:00→17:00)
[2017-06-10] MEDS: INSULIN REGULAR 100 UNIT/ML SUBCUT SCH ×2 (17:25→21:34)
[2017-06-10] MEDS ORDERED: MAGNESIUM CITRATE 300 ML BOTTLE PO ONE (21:00)
[2017-06-11] MEDS: SODIUM CHLORIDE 0.9% 1,000 ML IV SCH ×2 (01:38→13:44)
[2017-06-11 08:04] LABS: Basophils % 0.9 % (0.0-0.8); Eosinophils # 0.5 10*3/uL (0.0-0.87); Eosinophils % 11.1 % (0.00-10.9); Hematocrit 37.2 VOL% (35.7-47.0); Hemoglobin 12.5 GM/DL (12.0-16.0); Immature Granulocytes % 0.2 %; Immature Granulocytes Absolute 0.01 #; Lymphocytes # 1.6 10*3/uL (1.4-4.0); Mean Corpuscular HGB Conc 33.6 GM/DL (32-36); Mean Corpuscular Hemoglobin 28 PG (27-34); Mean Corpuscular Volume 83.2 FL (87-102); Mean Platelet Volume 10.3 FL (9.6-12.0); Monocytes # 0.4 10*3/uL (0.11-0.8); Monocytes % 8.5 % (1.7-12.7); Neutrophils % 44.3 % (38.7-73.9); Platelet Count 261 T/CUMM (130-400); Red Blood Count 4.47 MC/CUMM (3.8-5.5); Red Cell Distribution Width 12.5 % (9.3-17.3); White Blood Count 4.5 T/CUMM (4-12)
[2017-06-11 08:40] LABS: Calcium 8.3 MG/DL (8.5-10.1); Osmolality,Calculated 283.3 MOS/KG (273-304); Potassium 4.3 MMOL/L (3.5-5.1)
[2017-06-11] MEDS: INSULIN REGULAR 100 UNIT/ML SUBCUT SCH ×2 (08:44→13:43)
[2017-06-11] MEDS: PANTOPRAZOLE 40 MG TABLET PO SCH (08:44)
[2017-06-11 09:36] LABS: Band Neutrophils 2 % (0-10); Eosinophils 9 % (0-10); Lymphocytes 45 % (20-55); Segmented Neutrophils 40 % (50-85); Total Cells Counted 100
[2017-06-11 09:37] LABS: Hypochromasia 1+; Microcytosis 1+; Platelet Estimate Normal
[2017-06-11] MEDS ORDERED: PROPOFOL 200 MG/20 ML VIAL IV ONE (09:56)
[2017-06-11] MEDS ORDERED: LIDOCAINE 2% 5 ML VIAL ONE (09:56)
[2017-06-11 12:05] VITALS: BP 129/84
== END 2017-06-11 14:00 | disposition home or self-care (01) | DRG 395 ==
LOC: N.ED 16:34 → N.EDINP 18:13 → N.5E 19:25
PROVIDERS: ADMIT Internal Medicine; ATTEND Internal Medicine
PROC: COLONBX (2017-06-11 07:05)

== ENCOUNTER 2017-08-29 17:49 | Observation (INO) ==
[2017-08-29] MEDS ORDERED: NITROGLYCERIN 2% OINT 1 INCH/GM PACK TOP STA (18:13)
[2017-08-29] MEDS ORDERED: ONDANSETRON 4 MG/2 ML VIAL IV STA (18:13)
[2017-08-29] MEDS ORDERED: ALUM/MAG/SIMETH/LIDO VISC 1:1 30 ML BOTTLE PO STA (18:13)
[2017-08-29] MEDS ORDERED: MORPHINE 2 MG/1 ML SYRINGE IV STA (18:13)
[2017-08-29] MEDS ORDERED: ASPIRIN 325 MG TABLET PO STA (18:13)
[2017-08-29] MEDS ORDERED: NITROGLYCERIN 2% OINT 1 INCH/GM PACK TOP ONE (18:29)
[2017-08-29] MEDS ORDERED: ONDANSETRON 4 MG/2 ML VIAL ONE (18:29)
[2017-08-29] MEDS ORDERED: ASPIRIN 325 MG TABLET ONE (18:30)
[2017-08-29] MEDS ORDERED: MORPHINE 2 MG/1 ML SYRINGE ONE (18:30)
[2017-08-29] MEDS ORDERED: ALUM/MAG/SIMETH/LIDO VISC 1:1 30 ML BOTTLE PO ONE (18:30)
[2017-08-29 18:34] LABS: Basophils # 0.1 10*3/uL (0.0-0.2); Basophils % 1.3 % (0.0-0.8); Eosinophils # 0.4 10*3/uL (0.0-0.87); Eosinophils % 7.8 % (0.00-10.9); Hematocrit 38.8 VOL% (35.7-47.0); Hemoglobin 13.5 GM/DL (12.0-16.0); Immature Granulocytes % 0.2 %; Immature Granulocytes Absolute 0.01 #; Lymphocytes % 42.3 % (21.3-54.2); Mean Corpuscular HGB Conc 34.8 GM/DL (32-36); Mean Corpuscular Hemoglobin 28 PG (27-34); Mean Corpuscular Volume 81.2 FL (87-102); Mean Platelet Volume 9.9 FL (9.6-12.0); Monocytes # 0.4 10*3/uL (0.11-0.8); Monocytes % 7.3 % (1.7-12.7); Neutrophils % 41.1 % (38.7-73.9); Platelet Count 288 T/CUMM (130-400); Red Blood Count 4.78 MC/CUMM (3.8-5.5); White Blood Count 4.8 T/CUMM (4-12)
[2017-08-29 18:43] LABS: INR 0.9; PT Patient Result 9.9 SECS
[2017-08-29 19:09] LABS: Albumin 3.9 G/DL (3.4-5.0); Bilirubin,Total 0.7 MG/DL (0.2-1.0); Potassium 3.6 MMOL/L (3.5-5.1); Total Protein 7.4 G/DL (6.4-8.3)
[2017-08-29] MEDS ORDERED: POTASSIUM CHLORIDE 20 MEQ TABLET PO PRN (20:11)
[2017-08-29] MEDS ORDERED: MORPHINE 2 MG/1 ML SYRINGE IV PRN (20:11)
[2017-08-29] MEDS ORDERED: INSULIN REGULAR 100 UNIT/ML SUBCUT ONE (20:11)
[2017-08-29] MEDS ORDERED: ONDANSETRON 4 MG/2 ML VIAL IV PRN (20:11)
[2017-08-29] MEDS ORDERED: ROSUVASTATIN 10 MG TABLET PO SCH (21:00)
[2017-08-29] MEDS: GEMFIBROZIL 600 MG TABLET PO SCH (23:17)
[2017-08-29] MEDS: OMEGA 3 ACID ETHYL ESTERS 1 GM CAPSULE PO SCH (23:17)
[2017-08-29] MEDS: SODIUM CHLORIDE 0.9% 1,000 ML IV SCH (23:18)
[2017-08-30] MEDS: NITROGLYCERIN 2% OINT 1 INCH/GM PACK TOP SCH ×3 (01:10→12:42)
[2017-08-30 02:08] LABS: Albumin 3.3 G/DL (3.4-5.0); Calcium 8.8 MG/DL (8.5-10.1); Osmolality,Calculated 282.5 MOS/KG (273-304); Potassium 3.9 MMOL/L (3.5-5.1); Risk Ratio 6.46; Total Protein 6.2 G/DL (6.4-8.3); VLDL CHOLESTEROL 49.6 MG/DL
[2017-08-30] MEDS ORDERED: ROSUVASTATIN 20 MG TABLET PO SCH (08:39)
[2017-08-30] MEDS ORDERED: INFLUENZA VIRUS VACCINE 0.5 ML SYRINGE IM ONE (09:00)
[2017-08-30] MEDS: PANTOPRAZOLE 40 MG TABLET PO SCH (09:45)
[2017-08-30] MEDS: CLOPIDOGREL 75 MG TABLET PO SCH (09:45)
[2017-08-30] MEDS: ENOXAPARIN 40 MG/0.4 ML SYRINGE SUBCUT SCH (09:45)
[2017-08-30] MEDS: GEMFIBROZIL 600 MG TABLET PO SCH ×2 (09:45→21:58)
[2017-08-30] MEDS: LISINOPRIL/HCTZ 10-12.5 MG TABLET PO SCH (09:46)
[2017-08-30] MEDS: INSULIN REGULAR 100 UNIT/ML SUBCUT SCH ×4 (09:46→21:56)
[2017-08-30] MEDS: OMEGA 3 ACID ETHYL ESTERS 1 GM CAPSULE PO SCH ×2 (09:46→21:58)
[2017-08-30] MEDS: ASPIRIN EC 325 MG TABLET PO SCH (09:46)
[2017-08-30 09:59] LABS: Barbiturates Screen,Urine Negative (Negative); Benzodiazepines Screen,Urine Negative (Negative); Cannabinoid Screen,Urine Negative (Negative); Opiate Screen,Urine Positive (Negative); Phencyclidine Screen,Urine Negative (Negative)
[2017-08-30] MEDS: SODIUM CHLORIDE 0.9% 1,000 ML IV SCH (12:41)
[2017-08-30] MEDS: ISOSORBIDE MONONITRATE 30 MG TABLET PO SCH (14:35)
[2017-08-30] MEDS: CARVEDILOL 3.125 MG TABLET PO SCH ×2 (14:35→21:58)
[2017-08-30] MEDS: RANOLAZINE 500 MG TABLET PO SCH ×2 (16:14→21:58)
[2017-08-30] MEDS ORDERED: ACETAMINOPHEN 325 MG TABLET PO PRN (17:17)
[2017-08-31 05:12] LABS: Basophils # 0.1 10*3/uL (0.0-0.2); Eosinophils # 0.4 10*3/uL (0.0-0.87); Eosinophils % 7.3 % (0.00-10.9); Hematocrit 36.4 VOL% (35.7-47.0); Hemoglobin 12.2 GM/DL (12.0-16.0); Immature Granulocytes % 0.2 %; Immature Granulocytes Absolute 0.01 #; Lymphocytes # 1.8 10*3/uL (1.4-4.0); Lymphocytes % 37.5 % (21.3-54.2); Mean Corpuscular HGB Conc 33.5 GM/DL (32-36); Mean Corpuscular Hemoglobin 28 PG (27-34); Mean Corpuscular Volume 83.1 FL (87-102); Mean Platelet Volume 9.8 FL (9.6-12.0); Monocytes # 0.5 10*3/uL (0.11-0.8); Monocytes % 9.4 % (1.7-12.7); Neutrophils # 2.1 10*3/uL (1.4-7.4); Neutrophils % 44.6 % (38.7-73.9); Platelet Count 256 T/CUMM (130-400); Red Blood Count 4.38 MC/CUMM (3.8-5.5); Red Cell Distribution Width 12.9 % (9.3-17.3); White Blood Count 4.8 T/CUMM (4-12)
[2017-08-31 05:43] LABS: Calcium 8.8 MG/DL (8.5-10.1); Osmolality,Calculated 280.7 MOS/KG (273-304); Potassium 4.2 MMOL/L (3.5-5.1)
[2017-08-31 08:11] VITALS: BP 96/58
[2017-08-31] MEDS: ISOSORBIDE MONONITRATE 30 MG TABLET PO SCH (09:26)
[2017-08-31] MEDS: LISINOPRIL/HCTZ 10-12.5 MG TABLET PO SCH (09:27)
[2017-08-31] MEDS: CLOPIDOGREL 75 MG TABLET PO SCH (09:27)
[2017-08-31] MEDS: ASPIRIN EC 325 MG TABLET PO SCH (09:27)
[2017-08-31] MEDS: CARVEDILOL 3.125 MG TABLET PO SCH ×2 (09:27→09:37)
[2017-08-31] MEDS: OMEGA 3 ACID ETHYL ESTERS 1 GM CAPSULE PO SCH (09:27)
[2017-08-31] MEDS: GEMFIBROZIL 600 MG TABLET PO SCH (09:27)
[2017-08-31] MEDS: PANTOPRAZOLE 40 MG TABLET PO SCH (09:28)
[2017-08-31] MEDS: INSULIN REGULAR 100 UNIT/ML SUBCUT SCH (09:32)
[2017-08-31] MEDS: ENOXAPARIN 40 MG/0.4 ML SYRINGE SUBCUT SCH (09:33)
[2017-08-31] MEDS: RANOLAZINE 500 MG TABLET PO SCH (10:55)
== END 2017-08-31 11:09 | disposition home or self-care (01) ==
LOC: N.EDINP 17:49 → N.ED 17:49 → SUATTDRO 20:11 → N.TELEN 22:25
PROVIDERS: ADMIT Internal Medicine Infectious Disease; ATTEND Internal Medicine Cardiovascular Disease

== ENCOUNTER 2017-09-09 08:54 | Observation (INO) ==
[2017-09-09] MEDS ORDERED: ENOXAPARIN 100 MG/ML SYRINGE SUBCUT STA (09:40)
[2017-09-09 09:50] LABS: Basophils % 0.6 % (0.0-0.8); Eosinophils # 0.2 10*3/uL (0.0-0.87); Eosinophils % 4.4 % (0.00-10.9); Hematocrit 39.4 VOL% (35.7-47.0); Hemoglobin 13.6 GM/DL (12.0-16.0); Immature Granulocytes % 0.2 %; Immature Granulocytes Absolute 0.01 #; Lymphocytes # 1.5 10*3/uL (1.4-4.0); Lymphocytes % 29.3 % (21.3-54.2); Mean Corpuscular HGB Conc 34.5 GM/DL (32-36); Mean Corpuscular Hemoglobin 29 PG (27-34); Mean Corpuscular Volume 83.1 FL (87-102); Mean Platelet Volume 9.8 FL (9.6-12.0); Monocytes # 0.3 10*3/uL (0.11-0.8); Monocytes % 6.3 % (1.7-12.7); Neutrophils # 3.1 10*3/uL (1.4-7.4); Neutrophils % 59.2 % (38.7-73.9); Platelet Count 323 T/CUMM (130-400); Red Blood Count 4.74 MC/CUMM (3.8-5.5); White Blood Count 5.2 T/CUMM (4-12)
[2017-09-09 10:18] LABS: Albumin 4.1 G/DL (3.4-5.0); Bilirubin,Total 0.8 MG/DL (0.2-1.0); Calcium 9.1 MG/DL (8.5-10.1); Osmolality,Calculated 277.1 MOS/KG (273-304); Total Protein 7.4 G/DL (6.4-8.3)
[2017-09-09] MEDS ORDERED: ENOXAPARIN 100 MG/ML SYRINGE SUBCUT ONE (10:19)
[2017-09-09] MEDS ORDERED: NITROGLYCERIN SL 0.4 MG TABLET SL ONE (11:29)
[2017-09-09] MEDS ORDERED: NITROGLYCERIN SL 0.4 MG TABLET SL STA ×2 (11:30→11:38)
[2017-09-09] MEDS ORDERED: ASPIRIN CHEW 81 MG TABLET PO STA (11:51)
[2017-09-09] MEDS ORDERED: NITROGLYCERIN SL 0.4 MG TABLET SL PRN (11:51)
[2017-09-09] MEDS ORDERED: MAGNESIUM SULF RIDER 4 GM in PREMIX 1 EACH IV PRN (11:56)
[2017-09-09] MEDS ORDERED: BISACODYL 5 MG TABLET PO PRN (11:56)
[2017-09-09] MEDS ORDERED: ZALEPLON 5 MG CAPSULE PO PRN (11:56)
[2017-09-09] MEDS ORDERED: ACETAMINOPHEN 325 MG TABLET PO PRN (11:56)
[2017-09-09] MEDS ORDERED: guaiFENesin/DM ER 600-30 MG TABLET PO PRN (11:56)
[2017-09-09] MEDS ORDERED: NICOTINE 21 MG/24 HR PATCH TRANSDERM PRN (11:56)
[2017-09-09] MEDS ORDERED: ONDANSETRON 4 MG/2 ML VIAL IV PRN (11:56)
[2017-09-09] MEDS ORDERED: MAGNESIUM SULF RIDER 2 GM in PREMIX 1 EACH IV PRN ×3 (11:56→15:47)
[2017-09-09] MEDS ORDERED: SODIUM CHLORIDE 0.45% 1,000 ML IV SCH (12:00)
[2017-09-09] MEDS ORDERED: ASPIRIN 325 MG TABLET ONE (12:23)
[2017-09-09] MEDS ORDERED: ASPIRIN CHEW 81 MG TABLET PO ONE (12:28)
[2017-09-09] MEDS ORDERED: DIAZEPAM 5 MG TABLET PO ONE (13:26)
[2017-09-09] MEDS ORDERED: POTASSIUM CHLORIDE RIDER 10 MEQ in PREMIX 1 EACH IV PRN ×2 (13:26→15:47)
[2017-09-09] MEDS ORDERED: diphenhydrAMINE CAP 25 MG CAPSULE PO ONE (13:26)
[2017-09-09 13:39] LABS: PT Patient Result 10.4 SECS
[2017-09-09 13:50] LABS: Troponin I Only < 0.015 NG/ML (0.00-0.045)
[2017-09-09] MEDS ORDERED: HEPARIN/NACL 0.9% 2 UNITS/ML 2,000 ML IV ONE (13:50)
[2017-09-09] MEDS ORDERED: LIDOCAINE 1% 20 ML VIAL ONE (13:50)
[2017-09-09] MEDS: SODIUM CHLORIDE 0.9% 1,000 ML IV SCH ×2 (14:49→22:49)
[2017-09-09 15:53] LABS: Troponin I Only < 0.015 NG/ML (0.00-0.045)
[2017-09-09] MEDS ORDERED: MIDAZOLAM 2 MG/2 ML VIAL ONE (15:55)
[2017-09-09] MEDS ORDERED: HYDROmorphone 2 MG/1 ML VIAL ONE (15:55)
[2017-09-09] MEDS: INSULIN REGULAR 100 UNIT/ML SUBCUT SCH ×2 (16:17→20:37)
[2017-09-09] MEDS: CARVEDILOL 3.125 MG TABLET PO SCH (16:17)
[2017-09-09] MEDS ORDERED: NAPROXEN 500 MG TABLET PO PRN (16:34)
[2017-09-09] MEDS ORDERED: INSULIN DEGLUDEC 24 UNIT SUBCUT SCH (19:00)
[2017-09-09] MEDS: RANOLAZINE 500 MG TABLET PO SCH (20:37)
[2017-09-09] MEDS: OMEGA 3 ACID ETHYL ESTERS 1 GM CAPSULE PO SCH (20:37)
[2017-09-09] MEDS: GEMFIBROZIL 600 MG TABLET PO SCH (20:37)
[2017-09-09] MEDS ORDERED: ROSUVASTATIN 20 MG TABLET PO SCH (21:00)
[2017-09-10 05:36] LABS: Basophils # 0.1 10*3/uL (0.0-0.2); Eosinophils # 0.3 10*3/uL (0.0-0.87); Eosinophils % 6.5 % (0.00-10.9); Hematocrit 38.3 VOL% (35.7-47.0); Hemoglobin 12.6 GM/DL (12.0-16.0); Immature Granulocytes % 0.2 %; Immature Granulocytes Absolute 0.01 #; Lymphocytes # 1.6 10*3/uL (1.4-4.0); Lymphocytes % 31.1 % (21.3-54.2); Mean Corpuscular HGB Conc 32.9 GM/DL (32-36); Mean Corpuscular Hemoglobin 28 PG (27-34); Mean Corpuscular Volume 84.7 FL (87-102); Monocytes # 0.4 10*3/uL (0.11-0.8); Monocytes % 7.6 % (1.7-12.7); Neutrophils # 2.7 10*3/uL (1.4-7.4); Neutrophils % 53.6 % (38.7-73.9); Platelet Count 296 T/CUMM (130-400); Red Blood Count 4.52 MC/CUMM (3.8-5.5); Red Cell Distribution Width 13.1 % (9.3-17.3); White Blood Count 5.1 T/CUMM (4-12)
[2017-09-10 06:03] LABS: Calcium 8.6 MG/DL (8.5-10.1); Osmolality,Calculated 282.4 MOS/KG (273-304); Potassium 4.2 MMOL/L (3.5-5.1)
[2017-09-10 06:03] LABS: Calcium 8.5 MG/DL (8.5-10.1); Osmolality,Calculated 285.1 MOS/KG (273-304); Potassium 4.3 MMOL/L (3.5-5.1)
[2017-09-10 06:05] VITALS: BP 103/59
[2017-09-10] MEDS: RANOLAZINE 500 MG TABLET PO SCH (08:46)
[2017-09-10] MEDS: OMEGA 3 ACID ETHYL ESTERS 1 GM CAPSULE PO SCH (08:46)
[2017-09-10] MEDS: GEMFIBROZIL 600 MG TABLET PO SCH (08:46)
[2017-09-10] MEDS: INSULIN REGULAR 100 UNIT/ML SUBCUT SCH (08:46)
[2017-09-10] MEDS: CARVEDILOL 3.125 MG TABLET PO SCH (08:47)
[2017-09-10] MEDS: SODIUM CHLORIDE 0.9% 1,000 ML IV SCH (08:49)
[2017-09-10] MEDS ORDERED: ISOSORBIDE MONONITRATE 30 MG TABLET PO SCH (09:00)
[2017-09-10] MEDS ORDERED: PANTOPRAZOLE 40 MG TABLET PO SCH (09:00)
[2017-09-10] MEDS ORDERED: CLOPIDOGREL 75 MG TABLET PO SCH (09:00)
[2017-09-10] MEDS ORDERED: LISINOPRIL/HCTZ 10-12.5 MG TABLET PO SCH (09:00)
[2017-09-10] MEDS ORDERED: ASPIRIN EC 325 MG TABLET PO SCH (09:00)
[2017-09-10] MEDS ORDERED: ENOXAPARIN 40 MG/0.4 ML SYRINGE SUBCUT SCH (21:00)
== END 2017-09-10 11:33 | disposition home or self-care (01) ==
LOC: N.ED 08:54 → N.EDINP 08:54 → N.TELES 14:11
PROVIDERS: ADMIT Internal Medicine Cardiovascular Disease; ATTEND Internal Medicine Cardiovascular Disease
PROC: CLCCHCL (ICD-10-PCS; 2017-09-09 13:45)

== ENCOUNTER 2018-03-08 12:00 | Observation (INO) ==
[2018-03-08] MEDS ORDERED: ASPIRIN 325 MG TABLET PO STA (12:29)
[2018-03-08] MEDS ORDERED: ONDANSETRON 4 MG/2 ML VIAL IV STA (12:29)
[2018-03-08] MEDS ORDERED: ENOXAPARIN 100 MG/ML SYRINGE SUBCUT STA (12:29)
[2018-03-08] MEDS ORDERED: MORPHINE 4 MG/1 ML VIAL IV STA (12:29)
[2018-03-08] MEDS ORDERED: NITROGLYCERIN 2% OINT 1 INCH/GM PACK TOP STA (12:29)
[2018-03-08 12:41] LABS: Basophils # 0.1 10*3/uL (0.0-0.2); Basophils % 1.2 % (0.0-0.8); Eosinophils # 0.3 10*3/uL (0.0-0.87); Eosinophils % 5.2 % (0.00-10.9); Hemoglobin 13.6 GM/DL (12.0-16.0); Immature Granulocytes % 0.2 %; Immature Granulocytes Absolute 0.01 #; Lymphocytes % 38.3 % (21.3-54.2); Mean Corpuscular Hemoglobin 29 PG (27-34); Mean Corpuscular Volume 83.7 FL (87-102); Mean Platelet Volume 9.8 FL (9.6-12.0); Monocytes # 0.3 10*3/uL (0.11-0.8); Monocytes % 5.4 % (1.7-12.7); Neutrophils # 2.6 10*3/uL (1.4-7.4); Neutrophils % 49.7 % (38.7-73.9); Platelet Count 266 T/CUMM (130-400); Red Blood Count 4.78 MC/CUMM (3.8-5.5); Red Cell Distribution Width 12.8 % (9.3-17.3); White Blood Count 5.2 T/CUMM (4-12)
[2018-03-08 12:57] LABS: INR 0.9; Partial Thromboplastin Time 26.9 SECS (0-40)
[2018-03-08 13:32] LABS: Albumin 4.1 G/DL (3.4-5.0); Calcium 9.1 MG/DL (8.5-10.1); Osmolality,Calculated 276.8 MOS/KG (273-304); Potassium 3.7 MMOL/L (3.5-5.1); Total Protein 7.5 G/DL (6.4-8.3)
[2018-03-08] MEDS ORDERED: ACETAMINOPHEN 325 MG TABLET PO PRN (15:34)
[2018-03-08] MEDS ORDERED: NITROGLYCERIN SL 0.4 MG TABLET SL PRN (16:46)
[2018-03-08] MEDS: NICOTINE 21 MG/24 HR PATCH TRANSDERM SCH (18:04)
[2018-03-08] MEDS: ROSUVASTATIN 20 MG TABLET PO SCH (20:52)
[2018-03-08] MEDS: CARVEDILOL 3.125 MG TABLET PO SCH (20:52)
[2018-03-08] MEDS: GEMFIBROZIL 600 MG TABLET PO SCH (20:52)
[2018-03-08] MEDS ORDERED: ONDANSETRON 4 MG/2 ML VIAL IV PRN (21:36)
[2018-03-09 05:33] LABS: Basophils % 0.9 % (0.0-0.8); Eosinophils # 0.4 10*3/uL (0.0-0.87); Eosinophils % 8.3 % (0.00-10.9); Hematocrit 37.2 VOL% (35.7-47.0); Hemoglobin 12.4 GM/DL (12.0-16.0); Immature Granulocytes % 0.2 %; Immature Granulocytes Absolute 0.01 #; Lymphocytes # 1.9 10*3/uL (1.4-4.0); Lymphocytes % 44.1 % (21.3-54.2); Mean Corpuscular HGB Conc 33.3 GM/DL (32-36); Mean Corpuscular Hemoglobin 28 PG (27-34); Mean Corpuscular Volume 83.8 FL (87-102); Mean Platelet Volume 10.3 FL (9.6-12.0); Monocytes # 0.3 10*3/uL (0.11-0.8); Monocytes % 7.6 % (1.7-12.7); Neutrophils # 1.6 10*3/uL (1.4-7.4); Neutrophils % 38.9 % (38.7-73.9); Platelet Count 257 T/CUMM (130-400); Red Blood Count 4.44 MC/CUMM (3.8-5.5); Red Cell Distribution Width 13.1 % (9.3-17.3); White Blood Count 4.2 T/CUMM (4-12)
[2018-03-09 06:08] LABS: Calcium 8.8 MG/DL (8.5-10.1); Osmolality,Calculated 281.5 MOS/KG (273-304); Potassium 4.1 MMOL/L (3.5-5.1)
[2018-03-09] MEDS ORDERED: ASPIRIN EC 325 MG TABLET PO SCH (09:00)
[2018-03-09] MEDS: LISINOPRIL/HCTZ 10-12.5 MG TABLET PO SCH (10:15)
[2018-03-09] MEDS: CARVEDILOL 3.125 MG TABLET PO SCH ×2 (10:15→21:00)
[2018-03-09] MEDS: NICOTINE 21 MG/24 HR PATCH TRANSDERM SCH (10:15)
[2018-03-09] MEDS: CLOPIDOGREL 75 MG TABLET PO SCH (10:15)
[2018-03-09] MEDS: ASPIRIN CHEW 81 MG TABLET PO SCH (10:15)
[2018-03-09] MEDS: GEMFIBROZIL 600 MG TABLET PO SCH ×2 (10:15→20:30)
[2018-03-09] MEDS: OMEGA 3 ACID ETHYL ESTERS 1 GM CAPSULE PO SCH (10:15)
[2018-03-09] MEDS: ISOSORBIDE MONONITRATE 30 MG TABLET PO SCH (10:16)
[2018-03-09] MEDS: PANTOPRAZOLE 40 MG TABLET PO SCH (10:16)
[2018-03-09] MEDS: SODIUM CHLORIDE 0.45% 1,000 ML IV SCH (15:10)
[2018-03-09] MEDS ORDERED: DEXTROSE 50% 25 GM/50 ML VIAL IV PRN (17:05)
[2018-03-09] MEDS ORDERED: GLUCAGON 1 MG VIAL IM PRN (17:05)
[2018-03-09] MEDS: ROSUVASTATIN 20 MG TABLET PO SCH (20:30)
[2018-03-10] MEDS: INSULIN REGULAR 100 UNIT/ML SUBCUT SCH ×5 (02:00→21:32)
[2018-03-10] MEDS: SODIUM CHLORIDE 0.45% 1,000 ML IV SCH (04:30)
[2018-03-10] MEDS: NICOTINE 21 MG/24 HR PATCH TRANSDERM SCH (09:00)
[2018-03-10] MEDS: LISINOPRIL/HCTZ 10-12.5 MG TABLET PO SCH (11:14)
[2018-03-10] MEDS: PANTOPRAZOLE 40 MG TABLET PO SCH (11:15)
[2018-03-10] MEDS: ISOSORBIDE MONONITRATE 30 MG TABLET PO SCH (11:16)
[2018-03-10] MEDS: OMEGA 3 ACID ETHYL ESTERS 1 GM CAPSULE PO SCH (11:17)
[2018-03-10] MEDS: CARVEDILOL 3.125 MG TABLET PO SCH ×2 (11:17→21:24)
[2018-03-10] MEDS: CLOPIDOGREL 75 MG TABLET PO SCH (11:17)
[2018-03-10] MEDS: GEMFIBROZIL 600 MG TABLET PO SCH ×2 (11:17→21:24)
[2018-03-10] MEDS: ASPIRIN CHEW 81 MG TABLET PO SCH (11:17)
[2018-03-10] MEDS: ROSUVASTATIN 20 MG TABLET PO SCH (21:24)
[2018-03-11 06:28] LABS: Eosinophils # 0.4 10*3/uL (0.0-0.87); Eosinophils % 9.9 % (0.00-10.9); Hematocrit 38.5 VOL% (35.7-47.0); Hemoglobin 12.8 GM/DL (12.0-16.0); Immature Granulocytes % 0.3 %; Immature Granulocytes Absolute 0.01 #; Lymphocytes # 1.5 10*3/uL (1.4-4.0); Lymphocytes % 39.1 % (21.3-54.2); Mean Corpuscular HGB Conc 33.2 GM/DL (32-36); Mean Corpuscular Hemoglobin 28 PG (27-34); Mean Corpuscular Volume 84.2 FL (87-102); Mean Platelet Volume 10.3 FL (9.6-12.0); Monocytes # 0.4 10*3/uL (0.11-0.8); Monocytes % 10.2 % (1.7-12.7); Neutrophils # 1.6 10*3/uL (1.4-7.4); Neutrophils % 39.5 % (38.7-73.9); Platelet Count 266 T/CUMM (130-400); Red Blood Count 4.57 MC/CUMM (3.8-5.5); Red Cell Distribution Width 13.1 % (9.3-17.3); White Blood Count 3.9 T/CUMM (4-12)
[2018-03-11 06:51] LABS: Osmolality,Calculated 278.5 MOS/KG (273-304); Potassium 3.7 MMOL/L (3.5-5.1)
[2018-03-11] MEDS ORDERED: fentaNYL 100 MCG/2 ML VIAL ONE ×2 (09:00→09:24)
[2018-03-11] MEDS ORDERED: LIDOCAINE 100 MG/5 ML SYRINGE ONE (09:00)
[2018-03-11] MEDS ORDERED: PROPOFOL 200 MG/20 ML VIAL IV ONE (09:00)
[2018-03-11] MEDS: INSULIN REGULAR 100 UNIT/ML SUBCUT SCH ×2 (09:49→12:28)
[2018-03-11] MEDS: GEMFIBROZIL 600 MG TABLET PO SCH (09:50)
[2018-03-11] MEDS: OMEGA 3 ACID ETHYL ESTERS 1 GM CAPSULE PO SCH (09:50)
[2018-03-11] MEDS: ISOSORBIDE MONONITRATE 30 MG TABLET PO SCH (09:50)
[2018-03-11] MEDS: ASPIRIN CHEW 81 MG TABLET PO SCH (09:50)
[2018-03-11] MEDS: PANTOPRAZOLE 40 MG TABLET PO SCH (09:50)
[2018-03-11] MEDS: LISINOPRIL/HCTZ 10-12.5 MG TABLET PO SCH (09:50)
[2018-03-11] MEDS: CARVEDILOL 3.125 MG TABLET PO SCH (09:51)
[2018-03-11] MEDS: NICOTINE 21 MG/24 HR PATCH TRANSDERM SCH (11:25)
[2018-03-11 11:41] VITALS: BP 90/59
== END 2018-03-11 13:35 | disposition home or self-care (01) ==
LOC: N.ED 12:00 → N.EDINP 12:00 → N.2E 16:57
PROVIDERS: ADMIT Internal Medicine; ATTEND Internal Medicine

== ENCOUNTER 2018-04-22 12:28 | Observation (INO) ==
[2018-04-22] MEDS ORDERED: METOPROLOL TARTRATE 5 MG/5 ML VIAL IV STA (13:18)
[2018-04-22] MEDS ORDERED: MORPHINE 4 MG/1 ML VIAL IV STA (13:18)
[2018-04-22] MEDS ORDERED: NITROGLYCERIN 2% OINT 1 INCH/GM PACK TOP STA (13:18)
[2018-04-22] MEDS ORDERED: ASPIRIN 325 MG TABLET PO STA (13:18)
[2018-04-22] MEDS ORDERED: ENOXAPARIN 100 MG/ML SYRINGE SUBCUT STA (13:18)
[2018-04-22] MEDS ORDERED: NITROGLYCERIN SL 0.4 MG TABLET SL PRN ×2 (13:18→16:47)
[2018-04-22] MEDS ORDERED: ONDANSETRON 4 MG/2 ML VIAL IV STA (13:54)
[2018-04-22 14:05] LABS: Calcium 8.8 MG/DL (8.5-10.1); Potassium 4.1 MMOL/L (3.5-5.1)
[2018-04-22 14:31] LABS: Basophils % 0.6 % (0.0-0.8); Eosinophils # 0.2 10*3/uL (0.0-0.87); Eosinophils % 4.9 % (0.00-10.9); Hematocrit 37.4 VOL% (35.7-47.0); Hemoglobin 12.7 GM/DL (12.0-16.0); Immature Granulocytes % 0.4 %; Immature Granulocytes Absolute 0.02 #; Lymphocytes # 1.9 10*3/uL (1.4-4.0); Lymphocytes % 39.4 % (21.3-54.2); Mean Corpuscular Hemoglobin 28 PG (27-34); Mean Corpuscular Volume 83.1 FL (87-102); Mean Platelet Volume 9.8 FL (9.6-12.0); Monocytes # 0.3 10*3/uL (0.11-0.8); Monocytes % 5.7 % (1.7-12.7); Neutrophils # 2.4 10*3/uL (1.4-7.4); Platelet Count 250 T/CUMM (130-400); Red Cell Distribution Width 12.5 % (9.3-17.3); White Blood Count 4.9 T/CUMM (4-12)
[2018-04-22] MEDS ORDERED: ONDANSETRON 4 MG/2 ML VIAL IV PRN (16:17)
[2018-04-22] MEDS ORDERED: ACETAMINOPHEN 325 MG TABLET PO PRN (16:17)
[2018-04-22] MEDS ORDERED: GLUCAGON 1 MG VIAL IM PRN (16:20)
[2018-04-22] MEDS ORDERED: DEXTROSE 50% 25 GM/50 ML VIAL IV PRN (16:20)
[2018-04-22] MEDS: INSULIN LISPRO 100 UNIT/ML SUBCUT SCH ×2 (16:53→21:23)
[2018-04-22] MEDS ORDERED: ENOXAPARIN 40 MG/0.4 ML SYRINGE SUBCUT SCH (17:00)
[2018-04-22] MEDS: SODIUM CHLORIDE 0.45% 1,000 ML IV SCH (17:59)
[2018-04-22 19:32] LABS: Apearance,Urine Slightly Hazy (Clear); Bilirubin,Urine Negative (Negative); Blood, Urine Negative (Negative); Glucose,Urine (UA) 50 mg/dL (Negative); Hyaline Casts,Urine 1 /LPF (0-3); Ketones,Urine Negative (Negative); Mucus,Urine Occasional /LPF (Occasional); Nitrite,Urine Negative (Negative); Protein,Urine Negative; RBC,Urine 1 /HPF (0-4); Squamous Epithelial Cell,Urine Occasional /HPF (0-10); Urine Color Yellow (Yellow); Urine Urobilinogen < 2.0 EU/DL (0.2-1.0); WBC,Urine 5 /HPF (0-6)
[2018-04-22] MEDS: INSULIN GLARGINE 100 UNIT/ML SUBCUT SCH (21:22)
[2018-04-22] MEDS: GEMFIBROZIL 600 MG TABLET PO SCH (21:23)
[2018-04-22] MEDS: ROSUVASTATIN 20 MG TABLET PO SCH (21:23)
[2018-04-22] MEDS: CARVEDILOL 3.125 MG TABLET PO SCH (21:23)
[2018-04-22] MEDS ORDERED: ALUM/MAG/SIMETH/LIDO VISC 1:1 30 ML BOTTLE PO ONE (22:00)
[2018-04-22] MEDS: ACETAMINOPHEN 325 MG TABLET PO SCH (23:22)
[2018-04-22] MEDS: HYOSCYAMINE 0.125 MG TABLET SL SCH (23:22)
[2018-04-22] MEDS: GABAPENTIN 100 MG CAPSULE PO SCH (23:22)
[2018-04-22] MEDS: SERTRALINE 25 MG TABLET PO SCH (23:22)
[2018-04-23 05:19] LABS: Basophils % 0.5 % (0.0-0.8); Eosinophils # 0.3 10*3/uL (0.0-0.87); Eosinophils % 4.8 % (0.00-10.9); Hematocrit 38.5 VOL% (35.7-47.0); Hemoglobin 12.6 GM/DL (12.0-16.0); Immature Granulocytes % 0.2 %; Immature Granulocytes Absolute 0.01 #; Lymphocytes # 1.3 10*3/uL (1.4-4.0); Lymphocytes % 20.4 % (21.3-54.2); Mean Corpuscular HGB Conc 32.7 GM/DL (32-36); Mean Corpuscular Hemoglobin 28 PG (27-34); Mean Corpuscular Volume 84.2 FL (87-102); Mean Platelet Volume 10.1 FL (9.6-12.0); Monocytes # 0.3 10*3/uL (0.11-0.8); Monocytes % 5.3 % (1.7-12.7); Neutrophils # 4.3 10*3/uL (1.4-7.4); Neutrophils % 68.8 % (38.7-73.9); Platelet Count 258 T/CUMM (130-400); Red Blood Count 4.57 MC/CUMM (3.8-5.5); Red Cell Distribution Width 12.6 % (9.3-17.3); White Blood Count 6.3 T/CUMM (4-12)
[2018-04-23 05:52] LABS: Risk Ratio 7.64; VLDL CHOLESTEROL 103.6 MG/DL
[2018-04-23 05:54] LABS: Calcium 8.2 MG/DL (8.5-10.1); Osmolality,Calculated 279.7 MOS/KG (273-304); Potassium 4.2 MMOL/L (3.5-5.1); Thyroid Stimulating Hormone 1.32 uIU/ml (0.358-3.74)
[2018-04-23 06:03] LABS: Troponin I < 0.015 NG/ML (0.00-0.045)
[2018-04-23] MEDS: HYOSCYAMINE 0.125 MG TABLET SL SCH ×2 (08:39→20:52)
[2018-04-23] MEDS: CARVEDILOL 3.125 MG TABLET PO SCH ×3 (08:40→16:03)
[2018-04-23] MEDS: GEMFIBROZIL 600 MG TABLET PO SCH ×2 (08:40→20:52)
[2018-04-23] MEDS: ISOSORBIDE MONONITRATE 30 MG TABLET PO SCH (08:40)
[2018-04-23] MEDS: OMEGA 3 ACID ETHYL ESTERS 1 GM CAPSULE PO SCH (08:40)
[2018-04-23] MEDS: CLOPIDOGREL 75 MG TABLET PO SCH (08:40)
[2018-04-23] MEDS: ASPIRIN EC 325 MG TABLET PO SCH (08:41)
[2018-04-23] MEDS: LISINOPRIL/HCTZ 10-12.5 MG TABLET PO SCH ×2 (08:41→08:46)
[2018-04-23] MEDS: SODIUM CHLORIDE 0.45% 1,000 ML IV SCH ×2 (08:41→20:53)
[2018-04-23] MEDS: PANTOPRAZOLE 40 MG TABLET PO SCH (08:41)
[2018-04-23] MEDS: ACETAMINOPHEN 325 MG TABLET PO SCH ×2 (08:41→20:52)
[2018-04-23] MEDS: GABAPENTIN 100 MG CAPSULE PO SCH ×3 (08:41→20:52)
[2018-04-23] MEDS: INSULIN LISPRO 100 UNIT/ML SUBCUT SCH ×4 (08:42→20:51)
[2018-04-23] MEDS: ENOXAPARIN 40 MG/0.4 ML SYRINGE SUBCUT SCH (08:46)
[2018-04-23] MEDS ORDERED: PANTOPRAZOLE 40 MG TABLET PO SCH (09:00)
[2018-04-23] MEDS: INSULIN GLARGINE 100 UNIT/ML SUBCUT SCH (20:51)
[2018-04-23] MEDS: SERTRALINE 25 MG TABLET PO SCH (20:52)
[2018-04-23] MEDS: ROSUVASTATIN 20 MG TABLET PO SCH (20:52)
[2018-04-24] MEDS: SODIUM CHLORIDE 0.45% 1,000 ML IV SCH (00:36)
[2018-04-24] MEDS: OMEGA 3 ACID ETHYL ESTERS 1 GM CAPSULE PO SCH (08:13)
[2018-04-24] MEDS: HYOSCYAMINE 0.125 MG TABLET SL SCH (08:13)
[2018-04-24] MEDS: CLOPIDOGREL 75 MG TABLET PO SCH (08:13)
[2018-04-24] MEDS: GABAPENTIN 100 MG CAPSULE PO SCH (08:13)
[2018-04-24] MEDS: GEMFIBROZIL 600 MG TABLET PO SCH (08:13)
[2018-04-24] MEDS: ACETAMINOPHEN 325 MG TABLET PO SCH (08:13)
[2018-04-24] MEDS: ISOSORBIDE MONONITRATE 30 MG TABLET PO SCH (08:13)
[2018-04-24] MEDS: LISINOPRIL/HCTZ 10-12.5 MG TABLET PO SCH (08:13)
[2018-04-24] MEDS: CARVEDILOL 3.125 MG TABLET PO SCH (08:13)
[2018-04-24] MEDS: PANTOPRAZOLE 40 MG TABLET PO SCH (08:13)
[2018-04-24] MEDS: ASPIRIN EC 325 MG TABLET PO SCH (08:13)
[2018-04-24] MEDS: INSULIN LISPRO 100 UNIT/ML SUBCUT SCH (08:14)
[2018-04-24] MEDS: ENOXAPARIN 40 MG/0.4 ML SYRINGE SUBCUT SCH (08:17)
[2018-04-24 08:42] VITALS: BP 114/67
== END 2018-04-24 10:54 | disposition home or self-care (01) ==
LOC: N.ED 12:28 → N.EDINP 12:28 → N.5E 17:40
PROVIDERS: ADMIT Internal Medicine; ATTEND Internal Medicine

== ENCOUNTER 2019-08-03 09:41 | Observation (INO) ==
[2019-08-03] MEDS ORDERED: ENOXAPARIN 100 MG/ML SYRINGE SUBCUT STA (10:08)
[2019-08-03] MEDS ORDERED: NITROGLYCERIN SL 0.4 MG TABLET SL PRN (10:08)
[2019-08-03 10:12] LABS: Basophils % 0.9 % (0.0-0.8); Eosinophils # 0.3 10*3/uL (0.0-0.87); Eosinophils % 6.6 % (0.00-10.9); Hematocrit 37.6 VOL% (35.7-47.0); Hemoglobin 12.8 GM/DL (12.0-16.0); Immature Granulocytes % 0.2 %; Immature Granulocytes Absolute 0.01 #; Lymphocytes % 42.4 % (21.3-54.2); Mean Platelet Volume 9.8 FL (9.6-12.0); Monocytes % 6.4 % (1.7-12.7); Neutrophils % 43.5 % (38.7-73.9); Platelet Count 284 T/CUMM (130-400); Red Blood Count 4.53 MC/CUMM (3.8-5.5); Red Cell Distribution Width 12.3 % (9.3-17.3); White Blood Count 4.7 T/CUMM (4-12)
[2019-08-03 10:26] LABS: INR 0.9; Partial Thromboplastin Time 24.5 SECS (20.8-36.0)
[2019-08-03 10:36] LABS: Albumin 3.8 G/DL (3.4-5.0); Bilirubin,Total 0.6 MG/DL (0.2-1.0); Calcium 9.2 MG/DL (8.5-10.1); Osmolality,Calculated 277.1 MOS/KG (273-304); Total Protein 7.2 G/DL (6.4-8.3)
[2019-08-03] MEDS ORDERED: ONDANSETRON 4 MG/2 ML VIAL IV STA (11:16)
[2019-08-03] MEDS ORDERED: ONDANSETRON 4 MG/2 ML VIAL ONE (11:17)
[2019-08-03] MEDS ORDERED: POTASSIUM CHLORIDE 20 MEQ/15 ML UDCUP PER TUBE PRN (11:18)
[2019-08-03] MEDS ORDERED: BISACODYL 5 MG TABLET PO PRN (11:18)
[2019-08-03] MEDS ORDERED: MORPHINE 4 MG/1 ML VIAL IV PRN (11:18)
[2019-08-03] MEDS ORDERED: diphenhydrAMINE CAP 25 MG CAPSULE PO PRN (11:18)
[2019-08-03] MEDS ORDERED: MAGNESIUM SULF RIDER 4 GM in PREMIX 1 EACH IV PRN (11:18)
[2019-08-03] MEDS ORDERED: DOCUSATE SODIUM 100 MG CAPSULE PO PRN (11:18)
[2019-08-03] MEDS ORDERED: ONDANSETRON 4 MG/2 ML VIAL IV PRN (11:18)
[2019-08-03] MEDS ORDERED: guaiFENesin/DM ER 600-30 MG TABLET PO PRN (11:18)
[2019-08-03] MEDS ORDERED: ZALEPLON 5 MG CAPSULE PO PRN (11:18)
[2019-08-03] MEDS ORDERED: PROMETHAZINE 25 MG TABLET PO PRN (11:18)
[2019-08-03] MEDS ORDERED: MAGNESIUM SULF RIDER 2 GM in PREMIX 1 EACH IV PRN ×2 (11:18→14:18)
[2019-08-03 11:42] LABS: Risk Ratio 3.13; VLDL CHOLESTEROL 26.8 MG/DL
[2019-08-03] MEDS ORDERED: GLUCAGON 1 MG VIAL IM PRN (12:21)
[2019-08-03] MEDS ORDERED: DEXTROSE 10% 250 ML BAG IV PRN ×2 (12:21→17:45)
[2019-08-03] MEDS ORDERED: POTASSIUM CHLORIDE RIDER 10 MEQ in PREMIX 1 EACH IV PRN (14:18)
[2019-08-03 14:40] LABS: Apearance,Urine CLEAR (Clear); Bilirubin,Urine Negative (Negative); Blood, Urine Negative (Negative); Glucose,Urine (UA) 50 mg/dL (Negative); Hyaline Casts,Urine 3 /LPF (0-3); Ketones,Urine Negative (Negative); Mucus,Urine Occasional /LPF (Occasional); Nitrite,Urine Negative (Negative); Protein,Urine Negative; RBC,Urine 1 /HPF (0-4); Squamous Epithelial Cell,Urine Occasional /HPF (0-10); Urine Color Yellow (Yellow); Urine Specific Gravity 1.008 (1.001-1.035); Urine Urobilinogen < 2.0 EU/DL (0.2-1.0); WBC,Urine 4 /HPF (0-6)
[2019-08-03] MEDS: SODIUM CHLORIDE 0.45% 1,000 ML IV SCH (14:40)
[2019-08-03] MEDS: NITROGLYCERIN 2% OINT 1 INCH/GM PACK TOP SCH ×2 (14:40→18:55)
[2019-08-03] MEDS ORDERED: diphenhydrAMINE CAP 25 MG CAPSULE PO ONE (15:30)
[2019-08-03] MEDS ORDERED: DIAZEPAM 5 MG TABLET PO ONE (15:30)
[2019-08-03] MEDS ORDERED: HEPARIN/NACL 0.9% 2 UNITS/ML 1,000 ML IV ONE (16:01)
[2019-08-03] MEDS ORDERED: LIDOCAINE 1% 20 ML VIAL ONE (16:01)
[2019-08-03] MEDS: INSULIN REGULAR 100 UNIT/ML SUBCUT SCH ×2 (16:35→22:10)
[2019-08-03] MEDS ORDERED: HYDROmorphone 2 MG/1 ML VIAL ONE (16:51)
[2019-08-03] MEDS ORDERED: MIDAZOLAM 2 MG/2 ML VIAL ONE (16:51)
[2019-08-03] MEDS ORDERED: NITROGLYCERIN DRIP 50 MG/250 ML BOTTLE IV ONE (17:31)
[2019-08-03] MEDS ORDERED: CLOPIDOGREL 300 MG TABLET ONE (17:45)
[2019-08-03] MEDS ORDERED: INSULIN GLARGINE 100 UNIT/ML SUBCUT SCH (21:00)
[2019-08-03] MEDS ORDERED: ROSUVASTATIN 20 MG TABLET PO SCH (21:00)
[2019-08-03] MEDS: gemfibroziL 600 MG TABLET PO SCH (21:23)
[2019-08-03] MEDS: RANOLAZINE 500 MG TABLET PO SCH (21:23)
[2019-08-03] MEDS: carvediloL 3.125 MG TABLET PO SCH (21:48)
[2019-08-04] MEDS: SODIUM CHLORIDE 0.45% 1,000 ML IV SCH ×2 (00:28→06:49)
[2019-08-04] MEDS: NITROGLYCERIN 2% OINT 1 INCH/GM PACK TOP SCH ×2 (00:29→06:49)
[2019-08-04 06:01] LABS: Basophils # 0.1 10*3/uL (0.0-0.2); Basophils % 0.8 % (0.0-0.8); Eosinophils # 0.3 10*3/uL (0.0-0.87); Eosinophils % 5.5 % (0.00-10.9); Hematocrit 35.7 VOL% (35.7-47.0); Hemoglobin 12.1 GM/DL (12.0-16.0); Immature Granulocytes % 0.3 %; Immature Granulocytes Absolute 0.02 #; Lymphocytes # 1.6 10*3/uL (1.4-4.0); Lymphocytes % 26.2 % (21.3-54.2); Mean Corpuscular HGB Conc 33.9 GM/DL (32-36); Mean Corpuscular Volume 83.4 FL (87-102); Mean Platelet Volume 10.1 FL (9.6-12.0); Monocytes % 7.1 % (1.7-12.7); Neutrophils % 60.1 % (38.7-73.9); Platelet Count 268 T/CUMM (130-400); Red Blood Count 4.28 MC/CUMM (3.8-5.5); Red Cell Distribution Width 12.4 % (9.3-17.3)
[2019-08-04 06:26] LABS: Blood Urea Nitrogen 16 MG/DL (7-18); Calcium 8.5 MG/DL (8.5-10.1); Estimated Glom Filtration Rate 61 ML/MIN; Glucose 107 MG/DL (74-106); Osmolality,Calculated 273.8 MOS/KG (273-304); Troponin I < 0.015 NG/ML (0.00-0.045)
[2019-08-04 06:29] LABS: Calcium 8.3 MG/DL (8.5-10.1)
[2019-08-04 08:53] VITALS: BP 104/69
[2019-08-04] MEDS ORDERED: ENOXAPARIN 40 MG/0.4 ML SYRINGE SUBCUT SCH (09:00)
[2019-08-04] MEDS ORDERED: amLODIPine 5 MG TABLET PO SCH (09:00)
[2019-08-04] MEDS ORDERED: ASPIRIN 325 MG TABLET PO SCH (09:00)
[2019-08-04] MEDS ORDERED: hydroCHLOROthiazide 25 MG TABLET PO SCH (09:00)
[2019-08-04] MEDS ORDERED: PANTOPRAZOLE 40 MG TABLET PO SCH (09:00)
[2019-08-04] MEDS ORDERED: CLOPIDOGREL 75 MG TABLET PO SCH (09:00)
[2019-08-04] MEDS ORDERED: ASPIRIN EC 81 MG TABLET PO SCH (09:00)
[2019-08-04] MEDS: gemfibroziL 600 MG TABLET PO SCH (09:06)
[2019-08-04] MEDS: carvediloL 3.125 MG TABLET PO SCH (09:06)
[2019-08-04] MEDS: INSULIN REGULAR 100 UNIT/ML SUBCUT SCH (09:11)
[2019-08-04] MEDS: RANOLAZINE 500 MG TABLET PO SCH (09:17)
== END 2019-08-04 11:13 | disposition home or self-care (01) ==
LOC: N.ED 09:41 → N.EDINP 09:41 → N.2W 13:45 → N.TELES 18:48
PROVIDERS: ADMIT Internal Medicine Cardiovascular Disease; ATTEND Internal Medicine Cardiovascular Disease
PROC: CLCCHCL (ICD-10-PCS; 2019-08-03 16:45)

== ENCOUNTER 2019-11-28 12:40 | Observation (INO) ==
[2019-11-28] MEDS ORDERED: ENOXAPARIN 100 MG/ML SYRINGE SUBCUT STA (13:08)
[2019-11-28] MEDS ORDERED: ONDANSETRON 4 MG/2 ML VIAL IV STA (13:08)
[2019-11-28] MEDS ORDERED: ASPIRIN 325 MG TABLET PO STA (13:08)
[2019-11-28] MEDS ORDERED: NITROGLYCERIN 2% OINT 1 INCH/GM PACK TOP STA (13:08)
[2019-11-28 13:11] LABS: Basophils # 0.1 10*3/uL (0.0-0.2); Basophils % 1.1 % (0.0-0.8); Eosinophils # 0.3 10*3/uL (0.0-0.87); Eosinophils % 5.5 % (0.00-10.9); Immature Granulocytes % 0.2 %; Immature Granulocytes Absolute 0.01 #; Lymphocytes # 1.8 10*3/uL (1.4-4.0); Lymphocytes % 38.3 % (21.3-54.2); Mean Corpuscular HGB Conc 34.3 GM/DL (32-36); Mean Corpuscular Volume 86.4 FL (87-102); Mean Platelet Volume 9.7 FL (9.6-12.0); Monocytes % 6.1 % (1.7-12.7); Neutrophils % 48.8 % (38.7-73.9); Platelet Count 337 T/CUMM (130-400); Red Blood Count 4.05 MC/CUMM (3.8-5.5); Red Cell Distribution Width 12.4 % (9.3-17.3); White Blood Count 4.6 T/CUMM (4-12)
[2019-11-28 13:22] LABS: PT Patient Result 10.9 SECS (9.8-11.9); Partial Thromboplastin Time 27.3 SECS (23.9-33.8)
[2019-11-28 13:27] LABS: Albumin 4.2 G/DL (3.4-5.0); Bilirubin,Total 0.8 MG/DL (0.2-1.0); Calcium 9.8 MG/DL (8.5-10.1); Osmolality,Calculated 272.2 MOS/KG (273-304)
[2019-11-28] MEDS ORDERED: INSULIN REGULAR 100 UNIT/ML SUBCUT ONE (14:58)
[2019-11-28] MEDS ORDERED: POTASSIUM CHLORIDE 20 MEQ TABLET PO PRN (14:58)
[2019-11-28] MEDS ORDERED: MAGNESIUM SULF RIDER 2 GM in PREMIX 1 EACH IV PRN (14:58)
[2019-11-28 15:16] LABS: Apearance,Urine CLEAR (Clear); Bilirubin,Urine Negative (Negative); Blood, Urine Small mg/dL (Negative); Glucose,Urine (UA) Negative (Negative); Ketones,Urine Negative (Negative); Nitrite,Urine Negative (Negative); Protein,Urine Negative; RBC,Urine 2 /HPF (0-4); Squamous Epithelial Cell,Urine Occasional /HPF (0-10); Urine Color Straw (Yellow); Urine Specific Gravity 1.005 (1.001-1.035); Urine Urobilinogen < 2.0 EU/DL (0.2-1.0); WBC,Urine 4 /HPF (0-6)
[2019-11-28] MEDS ORDERED: NITROGLYCERIN SL 0.4 MG TABLET SL PRN (15:18)
[2019-11-28 16:18] LABS: Barbiturates Screen,Urine Negative (Negative); Benzodiazepines Screen,Urine Negative (Negative); Cannabinoid Screen,Urine Negative (Negative); Opiate Screen,Urine Negative (Negative); Phencyclidine Screen,Urine Negative (Negative)
[2019-11-28] MEDS: INSULIN REGULAR 100 UNIT/ML SUBCUT SCH ×2 (17:56→21:41)
[2019-11-28] MEDS ORDERED: INSULIN REGULAR 100 UNIT/ML SUBCUT SCH (18:00)
[2019-11-28] MEDS: SODIUM CHLORIDE 0.45% 1,000 ML IV SCH (18:33)
[2019-11-28] MEDS: MORPHINE 4 MG/1 ML VIAL IV PRN (19:54)
[2019-11-28] MEDS ORDERED: ATORVASTATIN 20 MG TABLET PO SCH (21:00)
[2019-11-28] MEDS: carvediloL 3.125 MG TABLET PO SCH (21:40)
[2019-11-28] MEDS: ROSUVASTATIN 20 MG TABLET PO SCH (21:40)
[2019-11-28] MEDS: INSULIN GLARGINE 100 UNIT/ML SUBCUT SCH (21:41)
[2019-11-29] MEDS: MORPHINE 4 MG/1 ML VIAL IV PRN (03:54)
[2019-11-29] MEDS: SODIUM CHLORIDE 0.45% 1,000 ML IV SCH ×2 (03:56→14:30)
[2019-11-29 05:53] LABS: Calcium 8.7 MG/DL (8.5-10.1); Osmolality,Calculated 278.8 MOS/KG (273-304)
[2019-11-29] MEDS: INSULIN REGULAR 100 UNIT/ML SUBCUT SCH ×4 (07:32→21:26)
[2019-11-29] MEDS: carvediloL 3.125 MG TABLET PO SCH ×2 (08:07→21:25)
[2019-11-29] MEDS: PANTOPRAZOLE 40 MG TABLET PO SCH (08:07)
[2019-11-29] MEDS: ASPIRIN EC 325 MG TABLET PO SCH (08:07)
[2019-11-29] MEDS: ENOXAPARIN 30 MG/0.3 ML SYRINGE SUBCUT SCH (08:08)
[2019-11-29] MEDS ORDERED: amLODIPine 5 MG TABLET PO SCH (09:00)
[2019-11-29] MEDS: CLOPIDOGREL 75 MG TABLET PO SCH (16:05)
[2019-11-29] MEDS: ROSUVASTATIN 20 MG TABLET PO SCH (21:24)
[2019-11-29] MEDS: INSULIN GLARGINE 100 UNIT/ML SUBCUT SCH (21:26)
[2019-11-30] MEDS: SODIUM CHLORIDE 0.45% 1,000 ML IV SCH (02:02)
[2019-11-30 06:06] LABS: Calcium 9.1 MG/DL (8.5-10.1); Osmolality,Calculated 276.8 MOS/KG (273-304)
[2019-11-30 06:45] LABS: Risk Ratio 4.03; VLDL CHOLESTEROL 44.8 MG/DL
[2019-11-30] MEDS: ASPIRIN EC 325 MG TABLET PO SCH (08:52)
[2019-11-30] MEDS: ENOXAPARIN 30 MG/0.3 ML SYRINGE SUBCUT SCH (08:52)
[2019-11-30] MEDS: carvediloL 3.125 MG TABLET PO SCH (08:52)
[2019-11-30] MEDS: CLOPIDOGREL 75 MG TABLET PO SCH (08:52)
[2019-11-30] MEDS: PANTOPRAZOLE 40 MG TABLET PO SCH (08:52)
[2019-11-30 09:26] VITALS: BP 102/65
[2019-11-30] MEDS: INSULIN REGULAR 100 UNIT/ML SUBCUT SCH (09:48)
== END 2019-11-30 11:00 | disposition home health service (06) ==
LOC: N.EDINP 12:40 → N.ED 12:40 → N.TELES 16:44
PROVIDERS: ADMIT Internal Medicine; ATTEND Internal Medicine

== ENCOUNTER 2020-03-11 13:14 | Observation (INO) ==
[2020-03-11] MEDS ORDERED: NITROGLYCERIN SL 0.4 MG TABLET SL STA (14:46)
[2020-03-11 14:47] LABS: Basophils # 0.1 10*3/uL (0.0-0.2); Basophils % 1.1 % (0.0-0.8); Eosinophils # 0.2 10*3/uL (0.0-0.87); Eosinophils % 5.2 % (0.00-10.9); Hematocrit 36.6 VOL% (35.7-47.0); Hemoglobin 12.4 GM/DL (12.0-16.0); Immature Granulocytes % 0.2 %; Immature Granulocytes Absolute 0.01 #; Lymphocytes # 1.9 10*3/uL (1.4-4.0); Lymphocytes % 40.6 % (21.3-54.2); Mean Corpuscular HGB Conc 33.9 GM/DL (32-36); Mean Corpuscular Volume 85.7 FL (87-102); Mean Platelet Volume 10.1 FL (9.6-12.0); Monocytes % 6.5 % (1.7-12.7); Neutrophils % 46.4 % (38.7-73.9); Platelet Count 297 T/CUMM (130-400); Red Blood Count 4.27 MC/CUMM (3.8-5.5); Red Cell Distribution Width 12.4 % (9.3-17.3); White Blood Count 4.6 T/CUMM (4-12)
[2020-03-11 14:56] LABS: PT Patient Result 10.6 SECS (9.8-11.9)
[2020-03-11 15:11] LABS: Albumin 4.1 G/DL (3.4-5.0); Calcium 9.6 MG/DL (8.5-10.1); Total Protein 7.7 G/DL (6.4-8.3)
[2020-03-11] MEDS ORDERED: NITROGLYCERIN SL 0.4 MG TABLET SL PRN (16:56)
[2020-03-11 17:25] LABS: Troponin I < 0.015 NG/ML (0.00-0.045)
[2020-03-11] MEDS ORDERED: ONDANSETRON 4 MG/2 ML VIAL IV STA (20:08)
[2020-03-11] MEDS ORDERED: MORPHINE 4 MG/1 ML VIAL IV STA (20:08)
[2020-03-11] MEDS ORDERED: ROSUVASTATIN 20 MG TABLET PO SCH (21:00)
[2020-03-11] MEDS ORDERED: INSULIN GLARGINE 100 UNIT/ML SUBCUT SCH ×2 (21:00)
[2020-03-11] MEDS: carvediloL 3.125 MG TABLET PO SCH (21:10)
[2020-03-11] MEDS: metFORMIN 500 MG TABLET PO SCH (21:10)
[2020-03-11] MEDS: gemfibroziL 600 MG TABLET PO SCH (21:10)
[2020-03-11] MEDS: INSULIN REGULAR 100 UNIT/ML SUBCUT SCH ×2 (21:12→22:16)
[2020-03-12 05:54] LABS: Basophils % 0.9 % (0.0-0.8); Eosinophils # 0.3 10*3/uL (0.0-0.87); Eosinophils % 6.6 % (0.00-10.9); Hematocrit 34.7 VOL% (35.7-47.0); Hemoglobin 11.7 GM/DL (12.0-16.0); Lymphocytes # 1.7 10*3/uL (1.4-4.0); Lymphocytes % 40.6 % (21.3-54.2); Mean Corpuscular HGB Conc 33.7 GM/DL (32-36); Mean Corpuscular Volume 85.7 FL (87-102); Mean Platelet Volume 10.1 FL (9.6-12.0); Monocytes % 8.7 % (1.7-12.7); Neutrophils % 43.2 % (38.7-73.9); Platelet Count 262 T/CUMM (130-400); Red Blood Count 4.05 MC/CUMM (3.8-5.5); Red Cell Distribution Width 12.2 % (9.3-17.3); White Blood Count 4.2 T/CUMM (4-12)
[2020-03-12 06:17] LABS: Albumin 3.4 G/DL (3.4-5.0); Bilirubin,Total 0.9 MG/DL (0.2-1.0); Calcium 9.2 MG/DL (8.5-10.1); Osmolality,Calculated 284.7 MOS/KG (273-304); Total Protein 6.5 G/DL (6.4-8.3)
[2020-03-12] MEDS ORDERED: INSULIN REGULAR 100 UNIT/ML SUBCUT SCH ×4 (07:30→21:00)
[2020-03-12] MEDS ORDERED: PANTOPRAZOLE 40 MG TABLET PO SCH (09:00)
[2020-03-12] MEDS ORDERED: ASPIRIN EC 81 MG TABLET PO SCH (09:00)
[2020-03-12] MEDS ORDERED: amLODIPine 5 MG TABLET PO SCH (09:00)
[2020-03-12] MEDS ORDERED: LISINOPRIL/HCTZ 20-25 MG TABLET PO SCH (09:00)
[2020-03-12] MEDS ORDERED: CLOPIDOGREL 75 MG TABLET PO SCH (09:00)
[2020-03-12] MEDS: carvediloL 3.125 MG TABLET PO SCH (09:30)
[2020-03-12] MEDS: gemfibroziL 600 MG TABLET PO SCH (09:30)
[2020-03-12] MEDS: metFORMIN 500 MG TABLET PO SCH (09:30)
[2020-03-12 12:15] VITALS: BP 99/64
== END 2020-03-12 11:38 | disposition home or self-care (01) ==
LOC: N.ED 13:14 → N.EDINP 13:14 → SUATTDRO 17:14 → N.TELES 18:19
PROVIDERS: ADMIT Hospitalist; ATTEND Internal Medicine

== ENCOUNTER 2020-11-26 12:03 | Observation (INO) ==
[2020-11-26 12:23] LABS: Basophils % 0.7 % (0.0-0.8); Eosinophils # 0.2 10*3/uL (0.0-0.87); Eosinophils % 5.5 % (0.00-10.9); Hematocrit 37.4 VOL% (35.7-47.0); Hemoglobin 12.7 GM/DL (12.0-16.0); Immature Granulocytes % 0.2 %; Immature Granulocytes Absolute 0.01 #; Lymphocytes # 1.6 10*3/uL (1.4-4.0); Lymphocytes % 37.1 % (21.3-54.2); Mean Corpuscular Volume 82.2 FL (87-102); Mean Platelet Volume 9.7 FL (9.6-12.0); Monocytes % 6.4 % (1.7-12.7); Neutrophils % 50.1 % (38.7-73.9); Platelet Count 280 T/CUMM (130-400); Red Blood Count 4.55 MC/CUMM (3.8-5.5); Red Cell Distribution Width 12.6 % (9.3-17.3); White Blood Count 4.4 T/CUMM (4-12)
[2020-11-26 12:45] LABS: Bilirubin,Total 0.9 MG/DL (0.2-1.0); Calcium 9.1 MG/DL (8.5-10.1); Potassium 4.1 MMOL/L (3.5-5.1); Total Protein 7.2 G/DL (6.4-8.2)
[2020-11-26 12:49] LABS: Eosinophils 7 % (0-10); Hypochromasia Slight; Lymphocytes 28 % (20-55); Microcytosis 1+; Platelet Estimate Normal; Segmented Neutrophils 61 % (50-85); Total Cells Counted 100
[2020-11-26] MEDS ORDERED: NITROGLYCERIN SL 0.4 MG TABLET SL ONE (13:23)
[2020-11-26] MEDS ORDERED: ASPIRIN 325 MG TABLET ONE (13:23)
[2020-11-26] MEDS ORDERED: ASPIRIN 325 MG TABLET PO STA (13:25)
[2020-11-26] MEDS ORDERED: NITROGLYCERIN SL 0.4 MG TABLET SL STA ×2 (13:25→14:24)
[2020-11-26] MEDS ORDERED: NICOTINE 21 MG/24 HR PATCH TRANSDERM PRN (15:04)
[2020-11-26] MEDS ORDERED: BISACODYL 5 MG TABLET PO PRN (15:04)
[2020-11-26] MEDS ORDERED: ZALEPLON 5 MG CAPSULE PO PRN (15:04)
[2020-11-26] MEDS ORDERED: ALBUTEROL 2.5 MG/3 ML NEB RESP TX PRN (15:04)
[2020-11-26] MEDS ORDERED: DEXTROSE 50% 25 GM/50 ML VIAL IV PRN (15:04)
[2020-11-26] MEDS ORDERED: GLUCAGON 1 MG VIAL IM PRN (15:04)
[2020-11-26] MEDS ORDERED: ACETAMINOPHEN 325 MG TABLET PO PRN (15:04)
[2020-11-26] MEDS ORDERED: NITROGLYCERIN SL 0.4 MG TABLET SL PRN (15:04)
[2020-11-26] MEDS ORDERED: SODIUM CHLORIDE 0.9% 1,000 ML IV SCH (15:30)
[2020-11-26] MEDS ORDERED: ENOXAPARIN 40 MG/0.4 ML SYRINGE SUBCUT SCH (15:30)
[2020-11-26] MEDS: ONDANSETRON 4 MG/2 ML VIAL IV PRN ×2 (15:32→18:09)
[2020-11-26] MEDS: carvediloL 3.125 MG TABLET PO SCH (17:09)
[2020-11-26] MEDS: INSULIN LISPRO 100 UNIT/ML SUBCUT SCH ×2 (17:10→22:41)
[2020-11-26] MEDS ORDERED: ROSUVASTATIN 20 MG TABLET PO SCH (21:00)
[2020-11-26] MEDS ORDERED: GABAPENTIN 300 MG CAPSULE PO SCH (21:00)
[2020-11-26] MEDS: gemfibroziL 600 MG TABLET PO SCH (22:38)
[2020-11-27 05:23] LABS: Eosinophils # 0.4 10*3/uL (0.0-0.87); Hematocrit 35.9 VOL% (35.7-47.0); Hemoglobin 11.9 GM/DL (12.0-16.0); Immature Granulocytes % 0.2 %; Immature Granulocytes Absolute 0.01 #; Lymphocytes # 1.7 10*3/uL (1.4-4.0); Lymphocytes % 43.3 % (21.3-54.2); Mean Corpuscular HGB Conc 33.1 GM/DL (32-36); Mean Corpuscular Volume 83.7 FL (87-102); Neutrophils % 36.5 % (38.7-73.9); Platelet Count 244 T/CUMM (130-400); Red Blood Count 4.29 MC/CUMM (3.8-5.5); Red Cell Distribution Width 12.9 % (9.3-17.3)
[2020-11-27 05:51] LABS: Calcium 8.5 MG/DL (8.5-10.1); Eosinophils 7 % (0-10); Lymphocytes 39 % (20-55); Osmolality,Calculated 287.1 MOS/KG (273-304); Platelet Estimate Normal; Potassium 4.3 MMOL/L (3.5-5.1); Risk Ratio 7.81; Segmented Neutrophils 44 % (50-85); Total Cells Counted 100; VLDL CHOLESTEROL 98.6 MG/DL
[2020-11-27 07:30] VITALS: BP 107/68
[2020-11-27] MEDS ORDERED: ASPIRIN EC 81 MG TABLET PO SCH (09:00)
[2020-11-27] MEDS ORDERED: LISINOPRIL/HCTZ 20-25 MG TABLET PO SCH (09:00)
[2020-11-27] MEDS ORDERED: PANTOPRAZOLE 40 MG TABLET PO SCH (09:00)
[2020-11-27] MEDS ORDERED: CLOPIDOGREL 75 MG TABLET PO SCH (09:00)
[2020-11-27] MEDS ORDERED: ASPIRIN EC 325 MG TABLET PO SCH (09:00)
[2020-11-27] MEDS: gemfibroziL 600 MG TABLET PO SCH (09:13)
[2020-11-27] MEDS: INSULIN LISPRO 100 UNIT/ML SUBCUT SCH (09:13)
[2020-11-27] MEDS: carvediloL 3.125 MG TABLET PO SCH (09:13)
== END 2020-11-27 11:17 | disposition home or self-care (01) ==
LOC: N.EDINP 12:03 → N.ED 12:03 → N.TELES 16:15
PROVIDERS: ADMIT Internal Medicine; ATTEND Internal Medicine

== ENCOUNTER 2021-06-02 08:35 | Observation (INO) ==
[2021-06-02] MEDS ORDERED: NITROGLYCERIN SL 0.4 MG TABLET SL PRN (09:08)
[2021-06-02] MEDS ORDERED: ENOXAPARIN 100 MG/ML SYRINGE SUBCUT STA (09:08)
[2021-06-02] MEDS ORDERED: ENOXAPARIN 80 MG/0.8 ML SYRINGE SUBCUT ONE (09:10)
[2021-06-02 09:14] LABS: Basophils % 0.8 % (0.0-0.8); Eosinophils # 0.3 10*3/uL (0.0-0.87); Eosinophils % 6.4 % (0.00-10.9); Hematocrit 42.2 VOL% (35.7-47.0); Hemoglobin 13.8 GM/DL (12.0-16.0); Immature Granulocytes % 0.2 %; Immature Granulocytes Absolute 0.01 #; Lymphocytes # 1.2 10*3/uL (1.4-4.0); Lymphocytes % 24.6 % (21.3-54.2); Mean Corpuscular HGB Conc 32.7 GM/DL (32-36); Mean Corpuscular Volume 82.1 FL (87-102); Monocytes % 6.8 % (1.7-12.7); Neutrophils % 61.2 % (38.7-73.9); Platelet Count 305 T/CUMM (130-400); Red Blood Count 5.14 MC/CUMM (3.8-5.5); White Blood Count 4.7 T/CUMM (4-12)
[2021-06-02 09:30] LABS: Calcium 9.4 MG/DL (8.5-10.1); Potassium 3.8 MMOL/L (3.5-5.1)
[2021-06-02] MEDS ORDERED: ONDANSETRON 4 MG/2 ML VIAL ONE (10:04)
[2021-06-02] MEDS ORDERED: ONDANSETRON 4 MG/2 ML VIAL IV STA (10:07)
[2021-06-02] MEDS ORDERED: GLUCAGON 1 MG VIAL IM PRN (11:45)
[2021-06-02] MEDS ORDERED: ASPIRIN EC 325 MG TABLET PO SCH (12:00)
[2021-06-02] MEDS ORDERED: DEXTROSE 50% 25 GM/50 ML SYRINGE IV PRN (12:12)
[2021-06-02] MEDS: ENOXAPARIN 100 MG/ML SYRINGE SUBCUT SCH ×2 (12:35→23:48)
[2021-06-02] MEDS: PANTOPRAZOLE 40 MG TABLET PO SCH (12:35)
[2021-06-02] MEDS: NICOTINE 21 MG/24 HR PATCH TRANSDERM SCH (12:35)
[2021-06-02] MEDS: LACTATED RINGERS 1,000 ML IV SCH ×2 (12:35→20:18)
[2021-06-02] MEDS: CLOPIDOGREL 75 MG TABLET PO SCH (13:00)
[2021-06-02] MEDS: INSULIN LISPRO 100 UNIT/ML SUBCUT SCH ×2 (13:00→17:49)
[2021-06-02] MEDS: ROSUVASTATIN 20 MG TABLET PO SCH (20:59)
[2021-06-02] MEDS: gemfibroziL 600 MG TABLET PO SCH (20:59)
[2021-06-02] MEDS: carvediloL 3.125 MG TABLET PO SCH (21:00)
[2021-06-02] MEDS ORDERED: ACETAMINOPHEN 325 MG TABLET PO PRN (22:12)
[2021-06-03] MEDS: INSULIN LISPRO 100 UNIT/ML SUBCUT SCH ×4 (01:03→18:29)
[2021-06-03 06:27] LABS: Basophils % 0.9 % (0.0-0.8); Eosinophils # 0.4 10*3/uL (0.0-0.87); Eosinophils % 8.7 % (0.00-10.9); Hematocrit 37.6 VOL% (35.7-47.0); Hemoglobin 12.3 GM/DL (12.0-16.0); Immature Granulocytes % 0.2 %; Immature Granulocytes Absolute 0.01 #; Lymphocytes # 1.9 10*3/uL (1.4-4.0); Lymphocytes % 45.1 % (21.3-54.2); Mean Corpuscular HGB Conc 32.7 GM/DL (32-36); Mean Corpuscular Volume 83.2 FL (87-102); Mean Platelet Volume 9.9 FL (9.6-12.0); Monocytes % 6.6 % (1.7-12.7); Neutrophils % 38.5 % (38.7-73.9); Platelet Count 258 T/CUMM (130-400); Red Blood Count 4.52 MC/CUMM (3.8-5.5); White Blood Count 4.3 T/CUMM (4-12)
[2021-06-03 06:49] LABS: Albumin 3.1 G/DL (3.4-5.0); Bilirubin,Total 1.5 MG/DL (0.20-1.00); Calcium 8.7 MG/DL (8.5-10.1); Osmolality,Calculated 281.7 MOS/KG (273-304); Potassium 3.9 MMOL/L (3.5-5.1); Risk Ratio 7.56; Total Protein 6.2 G/DL (6.4-8.2); VLDL Cholesterol 57.8 MG/DL
[2021-06-03 06:52] LABS: Eosinophils 12 % (0-10); Hypochromasia 1+; Lymphocytes 51 % (20-55); Microcytosis 1+; Platelet Estimate Adequate; Segmented Neutrophils 34 % (50-85); Total Cells Counted 100
[2021-06-03 06:53] LABS: Atypical Lymphocytes Few
[2021-06-03] MEDS: INSULIN GLARGINE 100 UNIT/ML SUBCUT SCH (09:00)
[2021-06-03] MEDS ORDERED: GLUCAGON 1 MG VIAL IM PRN (12:09)
[2021-06-03] MEDS ORDERED: DEXTROSE 50% 25 GM/50 ML VIAL IV PRN (12:09)
[2021-06-03] MEDS ORDERED: POTASSIUM CHLORIDE RIDER 10 MEQ/100 ML PREMIX IV PRN (12:11)
[2021-06-03] MEDS ORDERED: MAGNESIUM SULF RIDER 2 GM/50 ML PREMIX IV PRN (12:11)
[2021-06-03] MEDS: CLOPIDOGREL 75 MG TABLET PO SCH (12:29)
[2021-06-03] MEDS: gemfibroziL 600 MG TABLET PO SCH ×2 (12:29→21:21)
[2021-06-03] MEDS: PANTOPRAZOLE 40 MG TABLET PO SCH (12:29)
[2021-06-03] MEDS: ASPIRIN EC 81 MG TABLET PO SCH (12:29)
[2021-06-03] MEDS: carvediloL 3.125 MG TABLET PO SCH ×2 (12:29→21:23)
[2021-06-03] MEDS: NICOTINE 21 MG/24 HR PATCH TRANSDERM SCH (12:37)
[2021-06-03] MEDS: LACTATED RINGERS 1,000 ML IV SCH (14:04)
[2021-06-03] MEDS: ENOXAPARIN 100 MG/ML SYRINGE SUBCUT SCH ×2 (15:29→23:58)
[2021-06-03] MEDS: ROSUVASTATIN 20 MG TABLET PO SCH (21:21)
[2021-06-04] MEDS: INSULIN LISPRO 100 UNIT/ML SUBCUT SCH ×3 (00:07→12:00)
[2021-06-04] MEDS: SODIUM CHLORIDE 0.9% 1,000 ML IV SCH ×2 (01:12→10:58)
[2021-06-04] MEDS: LACTATED RINGERS 1,000 ML IV SCH (05:04)
[2021-06-04 06:10] LABS: Eosinophils # 0.4 10*3/uL (0.0-0.87); Eosinophils % 9.7 % (0.00-10.9); Hematocrit 42.7 VOL% (35.7-47.0); Hemoglobin 14.2 GM/DL (12.0-16.0); Immature Granulocytes % 0.2 %; Immature Granulocytes Absolute 0.01 #; Lymphocytes # 1.7 10*3/uL (1.4-4.0); Lymphocytes % 41.2 % (21.3-54.2); Mean Corpuscular HGB Conc 33.3 GM/DL (32-36); Mean Corpuscular Volume 84.1 FL (87-102); Mean Platelet Volume 10.1 FL (9.6-12.0); Monocytes % 6.3 % (1.7-12.7); Neutrophils % 41.6 % (38.7-73.9); Platelet Count 305 T/CUMM (130-400); Red Blood Count 5.08 MC/CUMM (3.8-5.5); Red Cell Distribution Width 12.9 % (9.3-17.3); White Blood Count 4.1 T/CUMM (4-12)
[2021-06-04 06:26] LABS: Osmolality,Calculated 285.4 MOS/KG (273-304); Potassium 4.2 MMOL/L (3.5-5.1)
[2021-06-04 06:33] LABS: Eosinophils 16 % (0-10); Lymphocytes 38 % (20-55); Platelet Estimate Adequate; Segmented Neutrophils 41 % (50-85); Total Cells Counted 100
[2021-06-04 06:34] LABS: Atypical Lymphocytes Few
[2021-06-04] MEDS ORDERED: HEPARIN/NACL 0.9% 2 UNITS/ML 2,000 UNIT/1,000 ML BAG IV ONE (06:48)
[2021-06-04] MEDS ORDERED: LIDOCAINE 1% 20 ML VIAL ONE (06:48)
[2021-06-04] MEDS ORDERED: diphenhydrAMINE CAP 50 MG CAPSULE PO ONE (07:00)
[2021-06-04] MEDS ORDERED: DIAZEPAM 5 MG TABLET PO ONE (07:00)
[2021-06-04] MEDS ORDERED: HYDROmorphone 2 MG/1 ML VIAL ONE (07:18)
[2021-06-04] MEDS ORDERED: MIDAZOLAM 2 MG/2 ML VIAL ONE (07:19)
[2021-06-04] MEDS ORDERED: diphenhydrAMINE 50 MG/1 ML VIAL ONE (07:28)
[2021-06-04] MEDS ORDERED: DEXTROSE 50% 25 GM/50 ML VIAL IV PRN (07:53)
[2021-06-04] MEDS ORDERED: GLUCAGON 1 MG VIAL IM PRN (07:53)
[2021-06-04] MEDS ORDERED: NITROGLYCERIN SL 0.4 MG TABLET SL PRN (08:03)
[2021-06-04] MEDS: INSULIN GLARGINE 100 UNIT/ML SUBCUT SCH (08:50)
[2021-06-04] MEDS ORDERED: ASPIRIN EC 81 MG TABLET PO SCH (09:00)
[2021-06-04] MEDS ORDERED: INSULIN REGULAR 100 UNIT/ML SUBCUT SCH (09:00)
[2021-06-04] MEDS ORDERED: metFORMIN 500 MG TABLET PO SCH (09:00)
[2021-06-04] MEDS ORDERED: PANTOPRAZOLE 40 MG TABLET PO SCH (09:00)
[2021-06-04] MEDS ORDERED: LISINOPRIL/HCTZ 20-25 MG TABLET PO SCH (09:00)
[2021-06-04] MEDS ORDERED: CLOPIDOGREL 75 MG TABLET PO SCH (09:00)
[2021-06-04] MEDS: carvediloL 3.125 MG TABLET PO SCH (10:45)
[2021-06-04] MEDS: ASPIRIN EC 81 MG TABLET PO SCH (10:45)
[2021-06-04] MEDS: CLOPIDOGREL 75 MG TABLET PO SCH (10:45)
[2021-06-04] MEDS: PANTOPRAZOLE 40 MG TABLET PO SCH (10:46)
[2021-06-04] MEDS: gemfibroziL 600 MG TABLET PO SCH (10:50)
[2021-06-04] MEDS: NICOTINE 21 MG/24 HR PATCH TRANSDERM SCH (10:57)
[2021-06-04 15:54] VITALS: BP 108/61
[2021-06-04] MEDS ORDERED: GABAPENTIN 300 MG CAPSULE PO SCH (21:00)
[2021-06-04] MEDS ORDERED: INSULIN GLARGINE 100 UNIT/ML SUBCUT SCH (21:00)
[2021-06-05] MEDS ORDERED: REGADENOSON 0.4 MG/5 ML SYRINGE IV ONE (06:38)
== END 2021-06-04 15:13 | disposition home or self-care (01) ==
LOC: N.ED 08:35 → N.EDINP 08:35 → SUATTDRO 12:18 → N.TELEN 19:25
PROVIDERS: ADMIT Internal Medicine; ATTEND Internal Medicine Cardiovascular Disease
PROC: CLCCHCL (ICD-10-PCS; 2021-06-04 07:45)

== ENCOUNTER 2022-04-23 13:27 | Observation (INO) ==
[2022-04-23 14:05] LABS: Basophils % 0.8 % (0.0-0.8); Eosinophils # 0.2 10*3/uL (0.0-0.87); Hemoglobin 13.5 GM/DL (12.0-16.0); Immature Granulocytes % 0.2 %; Immature Granulocytes Absolute 0.01 #; Lymphocytes # 1.7 10*3/uL (1.4-4.0); Mean Corpuscular HGB Conc 34.6 GM/DL (32-36); Mean Platelet Volume 9.7 FL (9.6-12.0); Monocytes # 0.3 10*3/uL (0.11-0.8); Monocytes % 5.2 % (1.7-12.7); Neutrophils % 53.8 % (38.7-73.9); Platelet Count 263 T/CUMM (130-400); Red Cell Distribution Width 12.6 % (9.3-17.3); White Blood Count 4.8 T/CUMM (4-12)
[2022-04-23 14:26] LABS: Bilirubin,Total 1.3 MG/DL (0.20-1.00); Calcium 9.2 MG/DL (8.5-10.1); Osmolality,Calculated 280.5 MOS/KG (273-304); Potassium 3.6 MMOL/L (3.5-5.1); Total Protein 7.2 G/DL (6.4-8.2)
[2022-04-23] MEDS ORDERED: ENOXAPARIN 60 MG/0.6 ML SYRINGE SUBCUT STA (15:13)
[2022-04-23] MEDS ORDERED: ONDANSETRON 4 MG/2 ML VIAL IV STA (15:13)
[2022-04-23] MEDS ORDERED: NITROGLYCERIN 2% OINT 1 INCH/GM PACK TOP STA (15:13)
[2022-04-23] MEDS ORDERED: MORPHINE 10 MG/1 ML VIAL IV STA (15:13)
[2022-04-23] MEDS ORDERED: MORPHINE 2 MG/1 ML SYRINGE IV STA (15:15)
[2022-04-23] MEDS ORDERED: ACETAMINOPHEN 325 MG TABLET PO PRN (15:39)
[2022-04-23] MEDS ORDERED: GLUCAGON 1 MG VIAL IM PRN (15:39)
[2022-04-23] MEDS ORDERED: ONDANSETRON 4 MG/2 ML VIAL IV PRN (15:39)
[2022-04-23] MEDS ORDERED: MAGNESIUM SULF RIDER 2 GM/50 ML PREMIX IV PRN (15:39)
[2022-04-23] MEDS ORDERED: POTASSIUM CHLORIDE RIDER 10 MEQ/100 ML PREMIX IV PRN (15:39)
[2022-04-23] MEDS ORDERED: ALUMINUM/MAGNES/SIMETH MAX STR 30 ML UDCUP PO PRN (15:39)
[2022-04-23] MEDS ORDERED: MAGNESIUM SULF RIDER 4 GM/100 ML PREMIX IV PRN (15:39)
[2022-04-23] MEDS ORDERED: DEXTROSE 10% 250 ML BAG IV PRN (15:52)
[2022-04-23] MEDS ORDERED: NITROGLYCERIN SL 0.4 MG TABLET SL PRN (16:52)
[2022-04-23] MEDS ORDERED: GABAPENTIN 300 MG CAPSULE PO PRN (16:52)
[2022-04-23] MEDS ORDERED: EVOLOCUMAB 140 MG/ML SUBCUT SCH (17:00)
[2022-04-23] MEDS: INSULIN REGULAR 100 UNIT/ML SUBCUT SCH ×2 (17:27→20:56)
[2022-04-23] MEDS: gemfibroziL 600 MG TABLET PO SCH (20:57)
[2022-04-23] MEDS: carvediloL 3.125 MG TABLET PO SCH (20:57)
[2022-04-24 06:09] LABS: Basophils # 0.1 10*3/uL (0.0-0.2); Basophils % 1.3 % (0.0-0.8); Eosinophils # 0.4 10*3/uL (0.0-0.87); Eosinophils % 10.1 % (0.00-10.9); Hematocrit 37.1 VOL% (35.7-47.0); Hemoglobin 12.6 GM/DL (12.0-16.0); Immature Granulocytes % 0.3 %; Immature Granulocytes Absolute 0.01 #; Lymphocytes # 1.8 10*3/uL (1.4-4.0); Lymphocytes % 48.1 % (21.3-54.2); Mean Corpuscular Volume 83.7 FL (87-102); Mean Platelet Volume 9.9 FL (9.6-12.0); Monocytes # 0.3 10*3/uL (0.11-0.8); Monocytes % 7.4 % (1.7-12.7); Neutrophils % 32.8 % (38.7-73.9); Platelet Count 233 T/CUMM (130-400); Red Blood Count 4.43 MC/CUMM (3.8-5.5); Red Cell Distribution Width 12.6 % (9.3-17.3); White Blood Count 3.8 T/CUMM (4-12)
[2022-04-24 06:29] LABS: Calcium 8.3 MG/DL (8.5-10.1); Osmolality,Calculated 287.3 MOS/KG (273-304); Potassium 3.9 MMOL/L (3.5-5.1); VLDL Cholesterol 99.4 MG/DL
[2022-04-24 06:56] LABS: Atypical Lymphocytes Few; Band Neutrophils 3 % (0-10); Eosinophils 11 % (0-10); Lymphocytes 50 % (20-55); Platelet Estimate Normal; Total Cells Counted 100
[2022-04-24] MEDS: carvediloL 3.125 MG TABLET PO SCH (08:25)
[2022-04-24] MEDS: gemfibroziL 600 MG TABLET PO SCH (08:26)
[2022-04-24] MEDS: INSULIN REGULAR 100 UNIT/ML SUBCUT SCH (08:27)
[2022-04-24 08:38] VITALS: BP 113/71
[2022-04-24] MEDS ORDERED: ASPIRIN EC 81 MG TABLET PO SCH (09:00)
[2022-04-24] MEDS ORDERED: CLOPIDOGREL 75 MG TABLET PO SCH (09:00)
[2022-04-24] MEDS ORDERED: PANTOPRAZOLE 40 MG TABLET PO SCH (09:00)
[2022-04-24] MEDS ORDERED: LISINOPRIL/HCTZ 20-25 MG TABLET PO SCH (09:00)
== END 2022-04-24 10:56 | disposition home or self-care (01) ==
LOC: N.EDINP 13:27 → N.ED 13:27 → N.TELES 16:39
PROVIDERS: ADMIT Internal Medicine Cardiovascular Disease; ATTEND Internal Medicine Cardiovascular Disease